=== PATIENT | male | born 1940 | race Caucasian/White ===

== ENCOUNTER 2016-10-12 14:20 | Observation (INO) | payer MEDICARE, OTHER ==
[2016-10-12] MEDS ORDERED: ASPIRIN 81 MG TABLET, CHEWABLE PO ONE (14:23)
[2016-10-12 15:07] LABS: ABSOLUTE EOSINOPHILS # (AUTO) 0.4 10^3/uL (0.0-0.6); ABSOLUTE LYMPHOCYTES (AUTO) 1.1 10^3/uL (0.5-4.7); ABSOLUTE MONOCYTES (AUTO) 0.6 10^3/uL (0.1-1.4); ABSOLUTE NEUT (AUTO) 4.3 10^3/uL (1.7-8.2); BASOPHILS % (AUTO) 0.7 % (0-2); EOSINOPHILS % (AUTO) 5.9 % (0-6); HEMATOCRIT 40.7 % (37.9-51.0); HEMOGLOBIN 13.6 g/dL (13.5-17.0); HGB HCT DIFFERENCE 0.1; LYMPHOCYTES % (AUTO) 16.8 % (13-45); MEAN CORPUSCULAR HEMOGLOBIN 31.2 pg (27.0-33.4); MEAN CORPUSCULAR HGB CONC 33.5 g/dL (32.0-36.0); MEAN CORPUSCULAR VOLUME 93 fl (80-97); MONOCYTES % (AUTO) 10.1 % (3-13); RED BLOOD COUNT 4.37 10^6/uL (4.35-5.55); RED CELL DISTRIBUTION WIDTH 13.5 % (11.5-14.0); SEGMENTED NEUTROPHILS % (AUTO) 66.5 % (42-78); WHITE BLOOD COUNT 6.4 10^3/uL (4.0-10.5)
--- NOTE | 2016-10-12 15:12 | ER Document Report ---
ED Cardiac - General Chief Complaint: Chest Pain Stated Complaint: BREATHING CONCERNS Mode of Arrival: Medic Information source: Patient, Emergency Med Personnel TRAVEL OUTSIDE OF THE [place] IN LAST 30 DAYS: No - HPI Patient complains to provider of: Chest pain Use of: denies: Alcohol, Amphetamines, Bath salts, Caffeine, Cocaine, Decongestants Was the onset of pain: Sudden When did pain begin: 1030 Is the pain a: New problem Chest pain location: Other - R. PECTORAL Quality of pain: Sharp, Tightness Chest pain radiation location: None Severity now: Mild Severity at worst: Moderate Chest pain precipitating factors: At Rest Cardiac risk factors: Hypertension, Hx CHF, Hx [place] Positive cardiac history: Yes Associated symptoms: Diaphoresis, Shortness of breath. denies: Nausea/vomiting Exacerbated by: Activity Relieved by: NTG - PARTIAL RELIEF Similar symptoms previously: Yes Recently seen / treated by doctor: No - Related Data Allergies/Adverse Reactions: Fish Containing Products [Fish Product Derivatives] Allergy (Severe, Verified 08:48) Hives Home Medications: Current Home Medications Cyanocobalamin/FA/Pyridoxine [Folbic Tablet] 1 each PO DAILY 10/12/16 [History] Docusate Sodium [Colace 100 mg Capsule] 100 mg PO DAILY 10/12/16 [History] Esomeprazole Magnesium [Nexium] 40 mg PO DAILY 10/12/16 [History] Atorvastatin Calcium [Lipitor 20 mg Tablet] 20 mg PO DAILY 10/13/16 [History] Furosemide [Lasix 20 mg Tablet] 20 mg PO DAILY 10/13/16 [History] Levothyroxine Sodium [Synthroid] 150 mcg PO DAILY 10/13/16 [History] Past Medical History - General Information source: Patient, Relative - Social History Smoking Status: Former Smoker Cigarette use (# per day): No Chew tobacco use (# tins/day): No Smoking Education Provided: No Frequency of alcohol use: None Drug Abuse: None Lives with: Spouse/Significant other Family History: Reviewed & Not Pertinent Patient has suicidal ideation: No Patient has homicidal ideation: No - Past Medical History Cardiac Medical History: Reports: Hx Coronary Artery Disease, Hx Heart Attack - x4, [address], Hx Hypercholesterolemia, Hx Hypertension - on meds, Hx Pulmonary Embolism - 2005 Pulmonary Medical History: Reports: Hx Bronchitis - hx of, Hx Pneumonia - hx of - 3 years ago Denies: Hx Asthma, Hx COPD Neurological Medical History: Denies: Hx Cerebrovascular Accident, Hx Seizures Endocrine Medical History: Reports: Hx Hyperthyroidism. Denies: Hx Hypothyroidism Renal/ Medical History: Denies: Hx Benign Prostatic Hyperplasia, Hx End Stage Renal Disease, Hx Kidney Stones, Hx Peritoneal Dialysis GI Medical History: Denies: Hx Crohn's Disease, Hx Gastroesophageal Reflux Disease, Hx Hiatal Hernia, Hx Irritable Bowel, Hx Liver Failure, Hx Ulcer Musculoskeltal Medical History: Reports Hx Arthritis - hx 0f, Denies Hx Fibromyalgia, Denies Hx Multiple Sclerosis, Denies Hx Muscular Dystrophy Psychiatric Medical History: Denies: Hx Dementia, Hx Depression Traumatic Medical History: Denies: Hx Fractures Past Surgical History: Reports: Hx Cardiac Catheterization, Hx Cardiac Surgery - Angioplasty x4, Hx Cholecystectomy - 2010, Hx Coronary Artery Bypass Graft - x2, Hx Coronary Stent - x5, Hx Inguinal Hernia - x2, Hx Orthopedic Surgery - ankle, multiple, Hx Thyroid Surgery - Thyroidectomy - Immunizations Hx Diphtheria, Pertussis, Tetanus Vaccination: No Hx Pneumococcal Vaccination: 02/12/07 Review of Systems - Review of Systems Constitutional: Diaphoresis EENT: No symptoms reported Cardiovascular: See HPI, Dyspnea Respiratory: See HPI, Short of breath Gastrointestinal: No symptoms reported Genitourinary: No symptoms reported Musculoskeletal: No symptoms reported Skin: No symptoms reported Neurological/Psychological: No symptoms reported Physical Exam - Vital signs Vitals: Pulse Ox 95 10/12/16 14:24 Interpretation: Normal. No: Tachycardic, Tachypneic - General General appearance: Appears well, Alert In distress: None - HEENT Head: Normocephalic Eyes: Normal Conjunctiva: Normal Ears: Normal Nasal: Normal Mouth/Lips: Normal Mucous membranes: Normal - Respiratory Respiratory status: No respiratory distress Chest status: Nontender, Other - WELL-HEALED STERNOTOMY Breath sounds: Normal - Cardiovascular Rhythm: Regular Heart sounds: Normal auscultation Murmur: No - Abdominal Inspection: Normal Distension: No distension Bowel sounds: Normal - Back Back: Normal - Extremities General upper extremity: Normal inspection General lower extremity: Edema - 1+, BILAT.. No: Normal inspection - Neurological Neuro grossly intact: Yes Cognition: Normal Orientation: AAOx4 - Psychological Associated symptoms: Normal affect, Normal mood - Skin Skin Temperature: Warm Skin Moisture: Dry Skin Color: Normal Skin Turgor: Elastic Course - Vital Signs Vital signs: Temp Pulse Resp BP Pulse Ox 97.7 F 64 16 118/60 96 10/13/16 11:45 10/13/16 11:45 10/13/16 11:45 10/13/16 11:45 10/13/16 11:45 - Laboratory Result Diagrams: 10/12/16 14:36 10/12/16 14:36 Laboratory results interpreted by me: 10/12/16 10/12/16 10/12/16 14:36 14:36 14:36 Plt Count 139 L BUN 23 H Creatinine 1.64 H Est GFR ( Amer) 49 L Est GFR (Non-Af Amer) 41 L Glucose 116 H Creatine Kinase 52 L NT-Pro-B Natriuret Pep 1320 H - Diagnostic Test Radiology reviewed: Image reviewed, Reports reviewed - EKG Interpretation by Me EKG shows normal: Sinus rhythm, Intervals. abnormal: QRS Complexes, ST-T Waves Rate: Normal Rhythm: NSR [place]/QRS: RBBB, LPHB/LPFB - Consults DR. DIAZ Time consulted: 17:52 Reason for consultation: 10/12/16 17:58 AGREES TO SEE & ADMIT Consulted provider: will come to ER Discharge - Discharge Clinical Impression: Chest pain Qualifiers: Chest pain type: unspecified Qualified Code(s): R07.9 - Chest pain, unspecified CAD (coronary artery disease) Qualifiers: Coronary Disease-Associated Artery/Lesion type: unspecified vessel or lesion type [place] vs. transplanted heart: [place] heart Associated angina: angina presence unspecified Qualified Code(s): I25.10 - Atherosclerotic heart disease of [place] coronary artery without angina pectoris Condition: Good Disposition: HOME WITH HOME HEALTH SERVICES
[2016-10-12 15:24] LABS: ALANINE AMINOTRANSFERASE 24 U/L (21-72); ALBUMIN 3.8 g/dL (3.5-5.0); ALKALINE PHOSPHATASE 44 U/L (38-126); ANION GAP 8 (5-19); ASPARTATE AMINO TRANSFERASE 26 U/L (17-59); BILIRUBIN,TOTAL 0.9 mg/dL (0.2-1.3); BLOOD UREA NITROGEN 23 mg/dL (7-20); CALCIUM 9.2 mg/dL (8.4-10.2); CARBON DIOXIDE 30 mmol/L (22-30); CHLORIDE 101 mmol/L (98-107); CREATINE KINASE 52 U/L (55-170); CREATININE RESULT 1.64 mg/dL (0.52-1.25); GLUCOSE 116 mg/dL (75-110); POTASSIUM 4.1 mmol/L (3.6-5.0); TOTAL PROTEIN 6.4 g/dL (6.3-8.2)
[2016-10-12 15:26] LABS: CREATINE KINASE MB 0.69 ng/mL (<4.55); TROPONIN I 0.015 ng/mL
[2016-10-12] MEDS ORDERED: NORMAL SALINE 1000 ML 200 ML IV ONE (16:23)
[2016-10-12] MEDS ORDERED: MORPHINE SULFATE 10 MG/ML INJ IV ONE (17:53)
[2016-10-12] MEDS ORDERED: ACETAMINOPHEN 325 MG TABLET PO PRN (18:30)
[2016-10-12] MEDS ORDERED: GLUCAGON,HUMAN RECOMB 1 MG INJ IM PRN (18:44)
[2016-10-12] MEDS ORDERED: INSULIN REG, HUMAN 100 UNIT/ML 3 ML VIAL (PYX) SUBCUT PRN (18:44)
[2016-10-12] MEDS ORDERED: DEXTROSE 40% GEL 15 GM TUBE PO PRN ×2 (18:44)
[2016-10-12] MEDS ORDERED: DEXTROSE 50%-WATER 25 GM/50 ML DISP.SYRIN IV PRN ×2 (18:44)
--- NOTE | 2016-10-12 19:00 | PDOC H&P ---
History of Present Illness Admission Date/PCP: KAIDEN CASANOVA MD Patient complains of: Chest pain History of Present Illness: MOLLY GRAY is a 76 year old male, with history of coronary artery disease status post coronary artery bypass grafting has been having on and off right- sided chest pain for very long time. No recent stress test done performed. Patient reports that she is buying followed by Dr. Colby as outpatient. Pain is associated with some nausea but no vomiting. There is some shortness of breath and mild sweating. No palpitation or dizziness or lightheadedness. Patient reports that she had heart attacks in the past but never had left-sided chest pain. She ended up having coronary artery bypass grafting. In the emergency room there is a concern of decreased vascularity on the right side noted on chest x-ray. VQ scan was performed by low probability for PE. The patient was then referred for observation. Past Medical History Cardiac Medical History: Reports: Coronary Artery Disease, Myocardial Infarction - x4, [address], Hyperlipidema, Hypertension - on meds, Pulmonary Embolism - 2005 Pulmonary Medical History: Reports: Bronchitis - hx of, Pneumonia - hx of - 3 years ago Denies: Asthma, Chronic Obstructive Pulmonary Disease (COPD) Neurological Medical History: Denies: Seizures Endocrine Medical History: Reports: Hyperthyroidism Denies: Hypothyroidism Renal/ Medical History: Denies: End Stage Renal Disease GI Medical History: Denies: Crohn's Disease, Gastroesophageal Reflux Disease, Hiatal Hernia Musculoskeltal Medical History: Reports: Arthritis - hx 0f Denies: Fibromyalgia Psychiatric Medical History: Denies: Dementia, Depression Hematology: Denies: Anemia Past Surgical History Past Surgical History: Reports: Cardiac Catheterization, Cholecystectomy - 2010 , Coronary Artery Bypass Graft - x2, Coronary Stent - x5, Orthopedic Surgery - ankle, multiple Social History Information Source: Patient Lives with: Spouse/Significant other Smoking Status: Former Smoker Frequency of Alcohol Use: None Hx Recreational Drug Use: No Drugs: None Hx Prescription Drug Abuse: No Family History Family History: CAD, DM Parental Family History Reviewed: Yes Children Family History Reviewed: Yes Sibling(s) Family History Reviewed.: Yes Medication/Allergy Home Medications: Aspirin [Aspirin 81 mg Chewable Tablet] 81 mg PO DAILY 07/10/15 Atorvastatin Calcium [Lipitor 40 mg Tablet] 20 mg PO QHS 07/10/15 Clopidogrel Bisulfate [Plavix 75 mg Tablet] 75 mg PO DAILY 07/10/15 Dutasteride [Avodart Lf 0.5 mg Capsule] 0.5 mg PO DAILY 07/10/15 Gabapentin 300 mg PO QHS 07/10/15 Isosorbide Mononitrate [Imdur 30 mg Tablet.er] 60 mg PO DAILY 07/10/15 Levothyroxine Sodium [Synthroid 0.1 mg Tablet] 0.112 mg PO DAILY 07/10/15 Magnesium Oxide [Magnesium] 400 mg PO BID 07/10/15 Metoprolol Tartrate [Lopressor 25 mg Tablet] 25 mg PO Q12 07/10/15 Ranolazine [Ranexa] 1,000 mg PO BID 07/10/15 Trazodone HCl [Desyrel 50 mg Tablet] 50 mg PO QHS 07/10/15 Alfuzosin HCl [Alfuzosin HCl ER] 10 mg PO DAILY 08/18/16 Cyanocobalamin/FA/Pyridoxine [Folbic Tablet] 1 each PO DAILY 10/12/16 Docusate Sodium [Colace 100 mg Capsule] 100 mg PO DAILY 10/12/16 Esomeprazole Magnesium [Nexium] 40 mg PO DAILY 10/12/16 Furosemide [Lasix 20 mg Tablet] 20 mg PO DAILY 10/12/16 Allergies/Adverse Reactions: Fish Containing Products [Fish Product Derivatives] Allergy (Severe, Verified 08:48) Hives Review of Systems Constitutional: ABSENT: chills, fever(s), headache(s), weight gain, weight loss Eyes: ABSENT: visual disturbances Ears: ABSENT: hearing changes Nose, Mouth, and Throat: ABSENT: mouth pain, sore throat Cardiovascular: PRESENT: chest pain, dyspnea on exertion, edema - Both lower extremities for the past 2-3 months.. ABSENT: orthropnea, palpitations Respiratory: ABSENT: cough, hemoptysis, sputum Gastrointestinal: ABSENT: abdominal pain, constipation, diarrhea, hematemesis, hematochezia, melena, nausea, vomiting Genitourinary: ABSENT: dysuria, hematuria Musculoskeletal: ABSENT: joint swelling Integumentary: ABSENT: pruritus, rash, wounds Neurological: ABSENT: abnormal gait, abnormal speech, confusion, dizziness, focal weakness, syncope Psychiatric: ABSENT: anxiety, depression, homidical ideation, suicidal ideation Endocrine: ABSENT: cold intolerance, heat intolerance, polydipsia, polyuria Hematologic/Lymphatic: ABSENT: easy bleeding, easy bruising Physical Exam Vital Signs: Temp Pulse Resp BP Pulse Ox 98.4 F 60 12 120/55 L 96 10/12/16 18:22 10/12/16 14:47 10/12/16 18:06 10/12/16 16:01 10/12/16 18:06 General appearance: PRESENT: no acute distress, cooperative, well-developed, well-nourished Head exam: PRESENT: atraumatic, normocephalic Eye exam: PRESENT: conjunctiva pink, EOMI, PERRLA - Sluggish, arcus senilis. ABSENT: scleral icterus Ear exam: PRESENT: normal external ear exam Mouth exam: PRESENT: moist, neck supple, tongue midline Neck exam: ABSENT: carotid bruit, JVD, lymphadenopathy, thyromegaly Respiratory exam: PRESENT: clear to auscultation [place]. ABSENT: rales, rhonchi, wheezes Cardiovascular exam: PRESENT: RRR, systolic murmur - Left sternal border. ABSENT: diastolic murmur, rubs Pulses: PRESENT: normal dorsalis pedis pul Vascular exam: PRESENT: normal capillary refill GI/Abdominal exam: PRESENT: normal bowel sounds, soft. ABSENT: distended, guarding, mass, organolmegaly, rebound, tenderness Rectal exam: PRESENT: deferred Extremities exam: PRESENT: full ROM, +1 edema - Bilateral. ABSENT: calf tenderness, clubbing Musculoskeletal exam: PRESENT: tenderness - Right rib cage on the third, fourth , and fifth ribs anterior axillary line Neurological exam: PRESENT: alert, awake, oriented to person, oriented to place , oriented to time, oriented to situation Psychiatric exam: PRESENT: appropriate affect, normal mood. ABSENT: homicidal ideation, suicidal ideation Skin exam: PRESENT: dry, warm. ABSENT: cyanosis Results Laboratory Results: 10/12/16 14:36 10/12/16 14:36 10/12/16 10/12/16 14:36 14:36 WBC 6.4 RBC 4.37 Hgb 13.6 Hct 40.7 MCV 93 MCH 31.2 MCHC 33.5 RDW 13.5 Plt Count 139 L Seg Neutrophils % 66.5 Lymphocytes % 16.8 Monocytes % 10.1 Eosinophils % 5.9 Basophils % 0.7 Absolute Neutrophils 4.3 Absolute Lymphocytes 1.1 Absolute Monocytes 0.6 Absolute Eosinophils 0.4 Absolute Basophils 0.0 Sodium 139.0 Potassium 4.1 Chloride 101 Carbon Dioxide 30 Anion Gap 8 BUN 23 H Creatinine 1.64 H Est GFR ( Amer) 49 L Est GFR (Non-Af Amer) 41 L Glucose 116 H Calcium 9.2 Total Bilirubin 0.9 AST 26 ALT 24 Alkaline Phosphatase 44 Total Protein 6.4 Albumin 3.8 10/12/16 10/12/16 14:36 14:36 Creatine Kinase 52 L CK-MB (CK-2) 0.69 Troponin I 0.015 NT-Pro-B Natriuret Pep 1320 H Impressions: Chest X-Ray 10/12/16 14:24 IMPRESSION: Diffuse decreased pulmonary vascularity on the right side. This could be seen in right-sided pulmonary embolus. Lung Scan-VQ NM 10/12/16 16:21 IMPRESSION: NORMAL VENTILATION-PERFUSION LUNG SCAN. NEGATIVE FOR PULMONARY EMBOLI. NORMAL LUNG PERFUSION ON THE RIGHT Assessment & Plan - Diagnosis (1) Chest pain Qualifiers: Chest pain type: unspecified Qualified Code(s): R07.9 - Chest pain, unspecified Is this a current diagnosis for this admission?: Yes (2) CAD (coronary artery disease) Qualifiers: Coronary Disease-Associated Artery/Lesion type: unspecified vessel or lesion type [place] vs. transplanted heart: [place] heart Associated angina: angina presence unspecified Qualified Code(s): I25.10 - Atherosclerotic heart disease of [place] coronary artery without angina pectoris Is this a current diagnosis for this admission?: Yes (3) Hypertension Qualifiers: Hypertension type: essential hypertension Qualified Code(s): I10 - Essential (primary) hypertension Is this a current diagnosis for this admission?: Yes (4) Hyperlipidemia Qualifiers: Hyperlipidemia type: unspecified Qualified Code(s): E78.5 - Hyperlipidemia, unspecified Is this a current diagnosis for this admission?: Yes (5) Hypothyroid Qualifiers: Hypothyroidism type: acquired Qualified Code(s): E03.9 - Hypothyroidism, unspecified Is this a current diagnosis for this admission?: Yes (6) GERD (gastroesophageal reflux disease) Qualifiers: Esophagitis presence: without esophagitis Qualified Code(s): K21.9 - Gastro-esophageal reflux disease without esophagitis Is this a current diagnosis for this admission?: Yes (7) Diabetes mellitus Qualifiers: Diabetes mellitus type: type 2 Diabetes mellitus complication status: with unspecified complications Diabetes mellitus retirement insulin use: without retirement use Qualified Code(s): E11.8 - Type 2 diabetes mellitus with unspecified complications Is this a current diagnosis for this admission?: Yes - Time Time Spent: 30 to 50 Minutes Within: within 24 hours - Plan Summary Plan Summary: Patient will be admitted to observation. Cardiac enzymes will be obtained 3. Pain is right-sided and is reproducible. 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 I will continue the patient's cardiac medications including Ranexa and nitroglycerin. We will continue on antiplatelet therapy. DVT prophylaxis with Lovenox will be placed. He complains of increasing lower extremity edema, I will increase his diuretics. Supplemental oxygen will be given. Further testing depends on the admission evaluation as outlined above.
[2016-10-12] MEDS ORDERED: LEVOTHYROXINE SODIUM 0.112 MG TABLET PO SCH (20:00)
[2016-10-12] MEDS ORDERED: RANOLAZINE 500 MG TAB.SR.12H PO SCH (20:00)
[2016-10-12] MEDS ORDERED: GABAPENTIN 300 MG CAPSULE PO SCH (22:00)
[2016-10-12] MEDS ORDERED: ATORVASTATIN CALCIUM 40 MG TABLET PO SCH (22:00)
[2016-10-12] MEDS ORDERED: TRAZODONE HCL 50 MG TABLET PO SCH (22:00)
[2016-10-12] MEDS: METOPROLOL TARTRATE 25 MG TABLET PO SCH (22:13)
--- NOTE | 2016-10-12 23:03 | EKG REPORT ---
SEVERITY:- ABNORMAL ECG - SINUS RHYTHM RBBB AND LPFB : Confirmed by: Josephine Gilliam MD 12-Oct-2016 23:02:34
[2016-10-13] MEDS ORDERED: RANOLAZINE 500 MG TAB.SR.12H PO ONE (00:03)
[2016-10-13] MEDS ORDERED: INFLUENZA ADLT QUAD (36MOS+) 2016-17 VAC 0.5 ML SYR IM PRN (01:35)
[2016-10-13] MEDS: OXYCODONE HCL IR 5 MG TABLET PO PRN ×2 (02:29→08:55)
[2016-10-13] MEDS ORDERED: LANSOPRAZOLE 30 MG TAB.RAP.DR PO SCH (06:00)
[2016-10-13] MEDS ORDERED: ENOXAPARIN SODIUM INJ 40 MG/0.4 ML DISP.SYRIN SUBCUT SCH (08:00)
--- NOTE | 2016-10-13 08:30 | EKG REPORT ---
SEVERITY:- ABNORMAL ECG - SINUS RHYTHM FIRST DEGREE AV BLOCK RBBB AND LPFB : Confirmed by: Km Barnes 13-Oct-2016 08:29:42
[2016-10-13] MEDS ORDERED: ASPIRIN 81 MG TABLET, CHEWABLE PO SCH (10:00)
[2016-10-13] MEDS ORDERED: CLOPIDOGREL BISULFATE 75 MG TABLET PO SCH (10:00)
[2016-10-13] MEDS ORDERED: (PENDING PHARMACY ID) (Alfuzosin Hcl [Alfuzosin Hcl Er] 10 MG) PO SCH (10:00)
[2016-10-13] MEDS ORDERED: DUTASTERIDE 0.5 MG CAPSULE PO SCH (10:00)
[2016-10-13] MEDS ORDERED: FUROSEMIDE 20 MG TABLET PO SCH (10:00)
[2016-10-13] MEDS ORDERED: ISOSORBIDE MONONITRATE 30 MG TAB.ER.24H PO SCH (10:00)
[2016-10-13] MEDS ORDERED: DOCUSATE SODIUM 100 MG CAPSULE PO SCH (10:00)
[2016-10-13] MEDS: METOPROLOL TARTRATE 25 MG TABLET PO SCH (10:24)
--- NOTE | 2016-10-13 11:04 | PDOC DISCHARGE SUMMARY ---
General - Admit/Disc Date/PCP Admission Date/Primary Care Provider: 10/12/16 18:30 KAIDEN CASANOVA MD Discharge Date: 10/13/16 - Discharge Diagnosis (1) Chest pain Is this a current diagnosis for this admission?: Yes (2) CAD (coronary artery disease) Is this a current diagnosis for this admission?: Yes (3) Hypertension Is this a current diagnosis for this admission?: Yes (4) Hyperlipidemia Is this a current diagnosis for this admission?: Yes (5) Hypothyroid Is this a current diagnosis for this admission?: Yes (6) GERD (gastroesophageal reflux disease) Is this a current diagnosis for this admission?: Yes (7) Diabetes mellitus Is this a current diagnosis for this admission?: Yes - Additional Information Resuscitation Status: Full Code Discharge Diet: Cardiac - low-fat low-salt, Diabetic - no concentrated sweets Discharge Activity: Activity As Tolerated, Balance Activity w/Rest, Slowly Increase Activity Home Medications: Aspirin [Aspirin 81 mg Chewable Tablet] 81 mg PO DAILY 07/10/15 Atorvastatin Calcium [Lipitor 40 mg Tablet] 20 mg PO QHS 07/10/15 Clopidogrel Bisulfate [Plavix 75 mg Tablet] 75 mg PO DAILY 07/10/15 Dutasteride [Avodart Lf 0.5 mg Capsule] 0.5 mg PO DAILY 07/10/15 Gabapentin 300 mg PO QHS 07/10/15 Isosorbide Mononitrate [Imdur 30 mg Tablet.er] 60 mg PO DAILY 07/10/15 Levothyroxine Sodium [Synthroid 0.1 mg Tablet] 0.112 mg PO DAILY 07/10/15 Magnesium Oxide [Magnesium] 400 mg PO BID 07/10/15 Metoprolol Tartrate [Lopressor 25 mg Tablet] 25 mg PO Q12 07/10/15 Ranolazine [Ranexa] 1,000 mg PO BID 07/10/15 Trazodone HCl [Desyrel 50 mg Tablet] 50 mg PO QHS 07/10/15 Alfuzosin HCl [Alfuzosin HCl ER] 10 mg PO DAILY 08/18/16 Cyanocobalamin/FA/Pyridoxine [Folbic Tablet] 1 each PO DAILY 10/12/16 Docusate Sodium [Colace 100 mg Capsule] 100 mg PO DAILY 10/12/16 Esomeprazole Magnesium [Nexium] 40 mg PO DAILY 10/12/16 Furosemide [Lasix 20 mg Tablet] 40 mg PO DAILY #0 10/13/16 History of Present Illness Patient complains of: Chest pain History of Present Illness: MOLLY GRAY is a 76 year old male, with history of coronary artery disease status post coronary artery bypass grafting has been having on and off right- sided chest pain for very long time. No recent stress test done performed. Patient reports that she is buying followed by Dr. Colby as outpatient. Pain is associated with some nausea but no vomiting. There is some shortness of breath and mild sweating. No palpitation or dizziness or lightheadedness. Patient reports that she had heart attacks in the past but never had left-sided chest pain. She ended up having coronary artery bypass grafting. In the emergency room there is a concern of decreased vascularity on the right side noted on chest x-ray. VQ scan was performed by low probability for PE. The patient was then referred for observation. Hospital Course Hospital Course: The patient was admitted to observation. The patient was continued on his previous medications including Imdur, Ranexa, aspirin, and Plavix. Supplemental oxygen was given. DVT prophylaxis with Lovenox was placed. Serial cardiac enzymes were obtained and were negative. Eventually the patient' s chest pain resolved. It is right-sided and reproducible. 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 In terms of his lower extremity edema patient was recently started on Lasix and has no significant improvement therefore the dose was increased to 40 mg instead of 20 mg daily and the swelling improved. The rest of the hospital stays unremarkable. He has a VQ scan that shows low probability for pulmonary embolism. Chest x-ray did not reveal any heart failure or infiltrate. Physical Exam Vital Signs: Temp Pulse Resp BP Pulse Ox 97.3 F 62 14 118/60 93 10/13/16 07:27 10/13/16 07:27 10/13/16 07:27 10/13/16 07:27 10/13/16 07:27 Intake & Output 10/12/16 10/13/16 10/14/16 06:59 06:59 06:59 Intake Total 326 Output Total 200 Balance 126 Weight 99 kg General appearance: PRESENT: no acute distress, cooperative Head exam: PRESENT: normocephalic Eye exam: PRESENT: EOMI Mouth exam: PRESENT: moist, neck supple Neck exam: ABSENT: JVD Respiratory exam: PRESENT: clear to auscultation [place]. ABSENT: rhonchi, wheezes Cardiovascular exam: PRESENT: RRR. ABSENT: gallop GI/Abdominal exam: PRESENT: normal bowel sounds, soft. ABSENT: distended Extremities exam: PRESENT: +1 edema Neurological exam: PRESENT: alert, awake, oriented to situation Skin exam: ABSENT: cyanosis Results Laboratory Results: 10/13/16 07:50 TSH 2.07 10/13/16 10/13/16 10/13/16 00:43 00:43 07:50 Creatine Kinase 48 L 47 L Troponin I 0.015 10/13/16 07:50 Creatine Kinase Troponin I 0.014 Impressions: Chest X-Ray 10/12/16 14:24 IMPRESSION: Diffuse decreased pulmonary vascularity on the right side. This could be seen in right-sided pulmonary embolus. Lung Scan-VQ NM 10/12/16 16:21 IMPRESSION: NORMAL VENTILATION-PERFUSION LUNG SCAN. NEGATIVE FOR PULMONARY EMBOLI. NORMAL LUNG PERFUSION ON THE RIGHT Qualifiers [place] BEING DISCHARGED WITH ANY OF THE FOLLOWING DIAGNOSIS?: No Plan Discharge Plan: Follow-up with primary care physician in one week. Follow-up with Dr. Colby in one week. Time Spent: Less than 30 Minutes
[2016-10-13 12:08] VITALS: BP 146/61
== END 2016-10-13 13:38 | disposition home health service (06) ==
LOC: ER 14:20 → EH 18:30 → INTOOBSV 18:30 → 4N 22:59
PROVIDERS: ADMIT Family Medicine; ATTEND Family Medicine
DX: I25.10 Atherosclerotic heart disease of native coronary artery without angina pectoris (principal); R07.9 Chest pain, unspecified; E78.00 Pure hypercholesterolemia, unspecified; I10 Essential (primary) hypertension; E11.9 Type 2 diabetes mellitus without complications; M19.90 Unspecified osteoarthritis, unspecified site; E89.0 Postprocedural hypothyroidism; Z87.891 Personal history of nicotine dependence; I25.2 Old myocardial infarction; Z98.61 Coronary angioplasty status; Z86.711 Personal history of pulmonary embolism; Z95.1 Presence of aortocoronary bypass graft; Z79.899 Other long term (current) drug therapy; Z23 Encounter for immunization; Z79.82 Long term (current) use of aspirin; Z79.02 Long term (current) use of antithrombotics/antiplatelets
CPT/HCPCS: 93005 ×2; 99285; 96374; 36415 ×2; 82553; 82962 ×2; 82550 ×2; 84443; 85025; 80053; 84484 ×2; 83880; 71010; 78582; 90686; 93010 ×2; 90471; G0378 ×3; A9540; A9567; A9270 ×14; J2270; J1650; J3490 ×2; J7030; Q9969

== ENCOUNTER → 2016-12-15 | Outpatient (CLI) | payer MEDICARE, OTHER ==
[2016-12-15 11:34] LABS: HEMATOCRIT 37.9 % (37.9-51.0); HEMOGLOBIN 13.6 g/dL (13.5-17.0); HGB HCT DIFFERENCE 2.9; MEAN CORPUSCULAR HEMOGLOBIN 32.3 pg (27.0-33.4); MEAN CORPUSCULAR VOLUME 90 fl (80-97); RED BLOOD COUNT 4.23 10^6/uL (4.35-5.55); WHITE BLOOD COUNT 7.4 10^3/uL (4.0-10.5)
[2016-12-15 11:37] LABS: APPEARANCE,URINE CLEAR; BILIRUBIN,URINE NEGATIVE (NEGATIVE); GLUCOSE, URINE NEGATIVE (NEGATIVE); KETONES,URINE NEGATIVE (NEGATIVE); LEUKOCYTE ESTERASE,URINE NEGATIVE (NEGATIVE); NITRITE,URINE NEGATIVE (NEGATIVE); PROTEIN,URINE 100 mg/dL (NEGATIVE); URINE SPECIFIC GRAVITY 1.008; UROBILINOGEN,URINE NEGATIVE mg/dL (<2.0)
[2016-12-15 11:56] LABS: ALANINE AMINOTRANSFERASE 29 U/L (21-72); ALBUMIN 3.7 g/dL (3.5-5.0); ALKALINE PHOSPHATASE 58 U/L (38-126); ANION GAP 12 (5-19); ASPARTATE AMINO TRANSFERASE 24 U/L (17-59); BILIRUBIN,DIRECT 0.2 mg/dL (0.0-0.4); BILIRUBIN,TOTAL 0.9 mg/dL (0.2-1.3); BLOOD UREA NITROGEN 21 mg/dL (7-20); CALCIUM 9.5 mg/dL (8.4-10.2); CARBON DIOXIDE 25 mmol/L (22-30); CHLORIDE 104 mmol/L (98-107); CREATININE RESULT 1.44 mg/dL (0.52-1.25); GLUCOSE 102 mg/dL (75-110); MAGNESIUM 2.2 mg/dL (1.6-2.3); POTASSIUM 4.2 mmol/L (3.6-5.0); SODIUM 140.6 mmol/L (137-145); TOTAL PROTEIN 6.3 g/dL (6.3-8.2)
== END ==
LOC: OD 10:09
PROVIDERS: ATTEND Internal Medicine Nephrology
DX: I12.9 Hypertensive chronic kidney disease with stage 1 through stage 4 chronic kidney disease, or unspecified chronic kidney disease (principal); N18.3 Chronic kidney disease, stage 3 (moderate); I50.9 Heart failure, unspecified
CPT/HCPCS: 36415; 80053; 81001; 83735; 84443; 85027

== ENCOUNTER 2017-02-11 12:38 | Observation (INO) | payer MEDICARE, OTHER ==
[2017-02-11 13:19] LABS: ABSOLUTE BASOPHILS # (AUTO) 0.1 10^3/uL (0.0-0.2); ABSOLUTE EOSINOPHILS # (AUTO) 0.4 10^3/uL (0.0-0.6); ABSOLUTE LYMPHOCYTES (AUTO) 1.3 10^3/uL (0.5-4.7); ABSOLUTE MONOCYTES (AUTO) 0.6 10^3/uL (0.1-1.4); ABSOLUTE NEUT (AUTO) 4.3 10^3/uL (1.7-8.2); BASOPHILS % (AUTO) 1.1 % (0-2); EOSINOPHILS % (AUTO) 6.3 % (0-6); HEMATOCRIT 38.4 % (37.9-51.0); HEMOGLOBIN 13.3 g/dL (13.5-17.0); HGB HCT DIFFERENCE 1.5; LYMPHOCYTES % (AUTO) 19.8 % (13-45); MEAN CORPUSCULAR HEMOGLOBIN 31.8 pg (27.0-33.4); MEAN CORPUSCULAR HGB CONC 34.6 g/dL (32.0-36.0); MEAN CORPUSCULAR VOLUME 92 fl (80-97); MONOCYTES % (AUTO) 8.5 % (3-13); RED BLOOD COUNT 4.17 10^6/uL (4.35-5.55); RED CELL DISTRIBUTION WIDTH 12.8 % (11.5-14.0); SEGMENTED NEUTROPHILS % (AUTO) 64.3 % (42-78); WHITE BLOOD COUNT 6.7 10^3/uL (4.0-10.5)
--- NOTE | 2017-02-11 13:58 | RADIOLOGY REPORT (SQ) ---
EXAM DESCRIPTION: CHEST SINGLE VIEW COMPLETED DATE/TIME: 02/11/2017 1:48 pm REASON FOR STUDY: bed 2 cp COMPARISON: 10/12/2016. EXAM PARAMETERS: NUMBER OF VIEWS: One view. TECHNIQUE: Single frontal radiographic view of the chest acquired. RADIATION DOSE: NA LIMITATIONS: None. FINDINGS: LUNGS AND PLEURA: No opacities, masses or pneumothorax. No pleural effusion. MEDIASTINUM AND HILAR STRUCTURES: No masses. Contour normal. HEART AND VASCULAR STRUCTURES: Stable mild cardiomegaly. Normal vasculature. BONES: No acute findings. HARDWARE: Sternotomy wires, coronary bypass markers, and surgical clips. OTHER: No other significant finding. IMPRESSION: NO ACUTE RADIOGRAPHIC FINDING IN THE CHEST. TECHNICAL DOCUMENTATION: JOB ID: [id number]
--- NOTE | 2017-02-11 14:29 | ER Document Report ---
ED Cardiac - General Chief Complaint: Chest Pain Stated Complaint: CHEST PAIN Time Seen by Provider: 02/11/17 14:01 Notes: The patient is a 76-year-old male, past medical history CAD s/p five cardiac stents, four CABG's, HTN, Hypothyroidism, presents with 4 hours of right-sided chest pressure radiating to his right shoulder. He has never had this before. He took 324 mg aspirin and 5 sublingual nitros with relief of his chest pain. He is saying that the chest pain is returning while in the emergency room. Last stress test was last year and his last cardiac catheterization with 4 years ago. He was at rest when the pain started. He has chronic peripheral edema and said that his swelling has improved over the past few weeks. He denies increased leg swelling, calf pain, shortness of breath, back pain, nausea , vomiting, fevers or cough. TRAVEL OUTSIDE OF THE [place] IN LAST 30 DAYS: No - Related Data Allergies/Adverse Reactions: Fish Containing Products [Fish Product Derivatives] Allergy (Severe, Verified 13:30) Hives Home Medications: Current Home Medications Bumetanide 1 mg PO DAILY 02/11/17 [History] Past Medical History - General Information source: Patient - Social History Smoking Status: Never Smoker Chew tobacco use (# tins/day): No Frequency of alcohol use: None Drug Abuse: None Family History: Reviewed & Not Pertinent - Past Medical History Cardiac Medical History: Reports: Hx Coronary Artery Disease, Hx Heart Attack - x4, [address], Hx Hypercholesterolemia, Hx Hypertension - on meds, Hx Pulmonary Embolism - 2005 Pulmonary Medical History: Reports: Hx Bronchitis - hx of, Hx Pneumonia - hx of - 3 years ago Denies: Hx Asthma, Hx COPD Neurological Medical History: Denies: Hx Cerebrovascular Accident, Hx Seizures Endocrine Medical History: Reports: Hx Hyperthyroidism. Denies: Hx Hypothyroidism Renal/ Medical History: Denies: Hx Benign Prostatic Hyperplasia, Hx End Stage Renal Disease, Hx Kidney Stones, Hx Peritoneal Dialysis GI Medical History: Denies: Hx Crohn's Disease, Hx Gastroesophageal Reflux Disease, Hx Hiatal Hernia, Hx Irritable Bowel, Hx Liver Failure, Hx Ulcer Musculoskeltal Medical History: Reports Hx Arthritis - hx 0f, Denies Hx Fibromyalgia, Denies Hx Multiple Sclerosis, Denies Hx Muscular Dystrophy Psychiatric Medical History: Denies: Hx Dementia, Hx Depression Traumatic Medical History: Denies: Hx Fractures Past Surgical History: Reports: Hx Cardiac Catheterization, Hx Cardiac Surgery - Angioplasty x4, Hx Cholecystectomy - 2010, Hx Coronary Artery Bypass Graft - x2, Hx Coronary Stent - x5, Hx Inguinal Hernia - x2, Hx Orthopedic Surgery - ankle, multiple, Hx Thyroid Surgery - Thyroidectomy - Immunizations Hx Diphtheria, Pertussis, Tetanus Vaccination: No Hx Pneumococcal Vaccination: 02/12/07 Review of Systems - Review of Systems Notes: REVIEW OF SYSTEMS: CONSTITUTIONAL: -fevers, -chills EENT: -eye pain, -difficulty swallowing, -nasal congestion CARDIOVASCULAR: +chest pain, -syncope. RESPIRATORY: -cough, -SOB GASTROINTESTINAL: -abdominal pain, -nausea, -vomiting, -diarrhea GENITOURINARY: -dysuria, -hematuria MUSCULOSKELETAL: -back pain, -neck pain SKIN: -rash or skin lesions. HEMATOLOGIC: -easy bruising or bleeding. LYMPHATIC: -swollen, enlarged glands. NEUROLOGICAL: -altered mental status or loss of consciousness, -headache, - neurologic symptoms PSYCHIATRIC: -anxiety, -depression. ALL OTHER SYSTEMS REVIEWED AND NEGATIVE. Physical Exam - Vital signs Vitals: Pulse Ox 95 02/11/17 12:40 - Notes Notes: PHYSICAL EXAMINATION: GENERAL: Well-appearing, well-nourished and in no acute distress. HEAD: Atraumatic, normocephalic. EYES: Pupils equal round and reactive to light, extraocular movements intact, sclera anicteric, conjunctiva are normal. ENT: nares patent, oropharynx clear without exudates. Moist mucous membranes. NECK: Normal range of motion, supple without lymphadenopathy LUNGS: Breath sounds clear to auscultation bilaterally and equal. No wheezes rales or rhonchi. HEART: Regular rate and rhythm without murmurs ABDOMEN: Soft, nontender, normoactive bowel sounds. No guarding, no rebound. No masses appreciated. EXTREMITIES: Normal range of motion, no pitting or edema. No cyanosis. NEUROLOGICAL: Cranial nerves grossly intact. Normal speech, normal gait. Normal sensory and motor exams. PSYCH: Normal mood, normal affect. SKIN: Warm, Dry, normal turgor, no rashes or lesions noted. Course - Re-evaluation Re-evalutation: Pt has HEART score of 8. Chest pain free with nitro paste and he already took 324 mg ASA at home prior to arrival. Considered PE, but is not having any SOB and is not tachycardic. Symptoms also atypical for aortic dissection with intermittent symptoms and no back pain. Pt's PMD is Dr. Moss and his computerized table cutter is Dr. Colby. Will admit patient as Obs for further evaluation of his chest pain. 02/11/17 15:[address] Jovanny Rouse and he will admit to Tele Obs. - Vital Signs Vital signs: Temp Pulse Resp BP Pulse Ox 97.4 F 23 H 120/70 95 02/11/17 12:44 02/11/17 13:01 02/11/17 13:01 02/11/17 13:01 - Laboratory Result Diagrams: 02/11/17 13:00 02/11/17 14:22 Laboratory results interpreted by me: 02/11/17 02/11/17 13:00 14:22 RBC 4.17 L Hgb 13.3 L Eosinophils % 6.3 H Sodium 135.9 L Creatinine 1.31 H Est GFR (Non-Af Amer) 53 L Creatine Kinase 47 L Total Protein 5.7 L Albumin 3.1 L - Diagnostic Test Radiology reviewed: Image reviewed, Reports reviewed Radiology results interpreted by me: CXR: NAD - EKG Interpretation by Me Rate: Normal [place]/QRS: RBBB When compared to previous EKG there are: No significant change Additional EKG results interpreted by me: V1-V3 ST depressions, unchanged from 10/13/2016 EKG Discharge - Discharge Clinical Impression: Chest pain Qualifiers: Chest pain type: unspecified Qualified Code(s): R07.9 - Chest pain, unspecified Condition: Stable Disposition: ADMITTED OBSERVATION Admitting Provider: Taurus Rouse Unit Admitted: Telemetry
[2017-02-11] MEDS ORDERED: NITROGLYCERIN 2% OINTMENT 1 GM PACKET TP ONE (14:30)
[2017-02-11 15:04] LABS: ALANINE AMINOTRANSFERASE 30 U/L (21-72); ALBUMIN 3.1 g/dL (3.5-5.0); ALKALINE PHOSPHATASE 50 U/L (38-126); ANION GAP 5 (5-19); ASPARTATE AMINO TRANSFERASE 22 U/L (17-59); BILIRUBIN,DIRECT 0.2 mg/dL (0.0-0.4); BILIRUBIN,TOTAL 0.8 mg/dL (0.2-1.3); BLOOD UREA NITROGEN 17 mg/dL (7-20); CALCIUM 8.6 mg/dL (8.4-10.2); CARBON DIOXIDE 27 mmol/L (22-30); CHLORIDE 104 mmol/L (98-107); CREATINE KINASE 47 U/L (55-170); CREATININE RESULT 1.31 mg/dL (0.52-1.25); GLUCOSE 94 mg/dL (75-110); POTASSIUM 4.1 mmol/L (3.6-5.0); SODIUM 135.9 mmol/L (137-145); TOTAL PROTEIN 5.7 g/dL (6.3-8.2)
[2017-02-11 15:17] LABS: CREATINE KINASE MB 0.47 ng/mL (<4.55)
[2017-02-11 15:18] LABS: TROPONIN I < 0.012 ng/mL
[2017-02-11] MEDS ORDERED: MORPHINE SULFATE 10 MG/ML INJ IV PRN (16:18)
[2017-02-11] MEDS ORDERED: OXYCODONE-ACETAMINOPHEN 5-325 MG TABLET PO PRN (16:18)
[2017-02-11] MEDS ORDERED: ONDANSETRON HCL INJ/PF 4 MG/2 ML SDV IV PRN (16:18)
--- NOTE | 2017-02-11 16:49 | PDOC H&P ---
History of Present Illness Admission Date/PCP: 02/11/17 15:45 KAIDEN CASANOVA MD Patient complains of: right sided chest pain History of Present Illness: MOLLY GRAY is a 76 year old male presents to the ED from home with sudden onset of right sided dull aching chest pain, non radiating with asct'd dyspnea, diaphoresis, worsening dizziness and nausea all similar to the same symptoms he had with his first [place]. He reports increasing BLE edema with increase in his shoe size from 10 to 13's as a result and in spite of diuretics. He sees Dr. Colby, cardiology. He has had CABG x2 of 4v each with total of [address] ,unclear if in [place] or graft vessels. He has strong family hx of early IA in his Dad and other males of the extended family. he denies tobacco or ETOH use, takes statin for chol control and daily antiplt Tx. he also reports a prior hx of PE that presented similarly, took coumadin for a time but was stopped after his last CABG. He has underlying CKD at least stage 3 with baseline Scr 1.3-1.5. he presented 09/2016 with same symptoms, underwent admission to hospital with negative cardiac eval and underwent VQ scan that was low probability. he can't remember his last stress test date or results. last echo in computer is 01/2016 that shows preserved EF 50-55%, inferior wall hypokinesia, LORENZO, mod MR, trace AR, TR. eval in ED is negative so far, ecg shows no change from prior and first enzymes are negative. we were asked to admit for further eval and management given his high risk factors. Past Medical History Cardiac Medical History: Reports: Coronary Artery Disease, Myocardial Infarction - x4, [address], Hyperlipidema, Hypertension - on meds, Pulmonary Embolism - 2005 Pulmonary Medical History: Reports: Bronchitis - hx of, Pneumonia - hx of - 3 years ago Denies: Asthma, Chronic Obstructive Pulmonary Disease (COPD) Neurological Medical History: Denies: Seizures Endocrine Medical History: Reports: Hyperthyroidism Denies: Hypothyroidism Renal/ Medical History: Denies: End Stage Renal Disease GI Medical History: Denies: Crohn's Disease, Gastroesophageal Reflux Disease, Hiatal Hernia Musculoskeltal Medical History: Reports: Arthritis - hx 0f Denies: Fibromyalgia Psychiatric Medical History: Denies: Dementia, Depression Hematology: Denies: Anemia Past Surgical History Past Surgical History: Reports: Cardiac Catheterization, Cholecystectomy - 2010 , Coronary Artery Bypass Graft - x2, Coronary Stent - x5, Orthopedic Surgery - ankle, multiple Social History Smoking Status: Never Smoker Frequency of Alcohol Use: None Hx Recreational Drug Use: No Drugs: None Hx Prescription Drug Abuse: No - Advance Directive Resuscitation Status: Full Code Family History Family History: CAD, DM Parental Family History Reviewed: Yes Children Family History Reviewed: Yes Sibling(s) Family History Reviewed.: Yes Medication/Allergy Home Medications: Aspirin [Aspirin 81 mg Chewable Tablet] 81 mg PO DAILY 07/10/15 Clopidogrel Bisulfate [Plavix 75 mg Tablet] 75 mg PO DAILY 07/10/15 Gabapentin 300 mg PO QHS 07/10/15 Isosorbide Mononitrate [Imdur 30 mg Tablet.er] 60 mg PO DAILY 07/10/15 Magnesium Oxide [Magnesium] 400 mg PO BID 07/10/15 Metoprolol Tartrate [Lopressor 25 mg Tablet] 50 mg PO BID 07/10/15 Ranolazine [Ranexa] 1,000 mg PO BID 07/10/15 Trazodone HCl [Desyrel 50 mg Tablet] 50 mg PO QHS 07/10/15 Alfuzosin HCl [Alfuzosin HCl ER] 10 mg PO DAILY 08/18/16 Cyanocobalamin/FA/Pyridoxine [Folbic Tablet] 1 each PO DAILY 10/12/16 Docusate Sodium [Colace 100 mg Capsule] 100 mg PO DAILY 10/12/16 Esomeprazole Magnesium [Nexium] 40 mg PO DAILY 10/12/16 Atorvastatin Calcium [Lipitor 20 mg Tablet] 20 mg PO DAILY 10/13/16 Furosemide [Lasix 20 mg Tablet] 20 mg PO DAILY 10/13/16 Levothyroxine Sodium [Synthroid] 150 mcg PO DAILY 10/13/16 Bumetanide 1 mg PO DAILY 02/11/17 Allergies/Adverse Reactions: Fish Containing Products [Fish Product Derivatives] Allergy (Severe, Verified 13:30) Hives Review of Systems Constitutional: ABSENT: chills, fever(s), headache(s), weight gain, weight loss Eyes: ABSENT: visual disturbances Ears: ABSENT: hearing changes Cardiovascular: PRESENT: as per HPI Respiratory: ABSENT: cough, hemoptysis Gastrointestinal: ABSENT: abdominal pain, constipation, diarrhea, hematemesis, hematochezia, nausea, vomiting Genitourinary: ABSENT: dysuria, hematuria Musculoskeletal: ABSENT: joint swelling Integumentary: ABSENT: rash, wounds Neurological: ABSENT: abnormal gait, abnormal speech, confusion, dizziness, focal weakness, syncope Psychiatric: ABSENT: anxiety, depression, homidical ideation, suicidal ideation Endocrine: ABSENT: cold intolerance, heat intolerance, polydipsia, polyuria Hematologic/Lymphatic: ABSENT: easy bleeding, easy bruising Physical Exam Vital Signs: Temp Pulse Resp BP Pulse Ox 97.4 F 20 138/69 H 94 02/11/17 12:44 02/11/17 16:01 02/11/17 16:01 02/11/17 16:01 General appearance: PRESENT: no acute distress, cooperative, well-developed, well-nourished Head exam: PRESENT: atraumatic, normocephalic Eye exam: ABSENT: conjunctival injection, scleral icterus Mouth exam: PRESENT: moist, neck supple Neck exam: PRESENT: JVD. ABSENT: carotid bruit, tracheal deviation Respiratory exam: PRESENT: crackles - bases, unlabored. ABSENT: accessory muscle use, tachypnea Cardiovascular exam: PRESENT: RRR, systolic murmur Pulses: PRESENT: normal radial pulses, normal dorsalis pedis pul Vascular exam: PRESENT: normal capillary refill GI/Abdominal exam: PRESENT: normal bowel sounds, soft. ABSENT: tenderness Extremities exam: PRESENT: +1 edema. ABSENT: calf tenderness - no cords Musculoskeletal exam: PRESENT: ambulatory, full ROM Neurological exam: PRESENT: alert, awake, oriented to person, oriented to place , oriented to time, oriented to situation Psychiatric exam: PRESENT: appropriate affect, normal mood Skin exam: PRESENT: warm. ABSENT: dry Results Laboratory Results: labs reviewed,renal function at baseline, no other sig abnl's noted EKG Comments: NSR with RBBB and inferior infarct as seen on previous, no changes Impressions: Chest X-Ray 02/11/17 12:42 IMPRESSION: NO ACUTE RADIOGRAPHIC FINDING IN THE CHEST. Status: Image reviewed by me Assessment & Plan - Diagnosis (1) Chest pain Qualifiers: Chest pain type: unspecified Qualified Code(s): R07.9 - Chest pain, unspecified Is this a current diagnosis for this admission?: YesPlan: unclear etiology but multiple risk factors for advancing coronary disease. admit to monitored bed for serial cardiac enzymes, consult DR Colby to determine our next step, does he need echo and stress test or transfer for heart cath or no further investigation at this time. continue antiplt Tx, statin, NTG and toprol. add O2 for symptom relief. analgesics and antiemetics prn. (2) Hypertension Qualifiers: Hypertension type: essential hypertension Qualified Code(s): I10 - Essential (primary) hypertension Is this a current diagnosis for this admission?: YesPlan: continue home regimen (3) CAD (coronary artery disease) Qualifiers: Coronary Disease-Associated Artery/Lesion type: unspecified vessel or lesion type [place] vs. transplanted heart: [place] heart Associated angina: angina presence unspecified Qualified Code(s): I25.10 - Atherosclerotic heart disease of [place] coronary artery without angina pectoris Is this a current diagnosis for this admission?: YesPlan: continue home regimen, further eval as noted above (4) Hyperlipidemia Qualifiers: Hyperlipidemia type: unspecified Qualified Code(s): E78.5 - Hyperlipidemia, unspecified Is this a current diagnosis for this admission?: YesPlan: continue statin; request old records from dr colby (5) Hypothyroid Qualifiers: Hypothyroidism type: acquired Qualified Code(s): E03.9 - Hypothyroidism, unspecified Is this a current diagnosis for this admission?: YesPlan: continue home regimen (6) Personal history of pulmonary embolism Is this a current diagnosis for this admission?: YesPlan: stat d dimer and if elevated ck ABG, dopplers and decide on VQ scan vs CTA depending on his renal function and plan for cath or not. - Time Time Spent: Greater than 70 Minutes Medications reviewed and adjusted accordingly: Yes Anticipated discharge: Home Within: within 48 hours
[2017-02-11] MEDS ORDERED: ENOXAPARIN SODIUM INJ 30 MG/0.3 ML DISP.SYRIN SUBCUT ONE (17:30)
[2017-02-11] MEDS: MAGNESIUM OXIDE 400 MG TABLET PO SCH (17:55)
[2017-02-11] MEDS ORDERED: (PENDING PHARMACY ID) (Magnesium Oxide [Magnesium] 400 MG) PO SCH (18:00)
[2017-02-11] MEDS ORDERED: METOPROLOL TARTRATE 25 MG TABLET PO SCH (18:00)
[2017-02-11] MEDS ORDERED: (PENDING PHARMACY ID) (Ranolazine [Ranexa] 1,000 MG) PO SCH (18:00)
[2017-02-11] MEDS: RANOLAZINE 500 MG TAB.SR.12H PO SCH (20:16)
[2017-02-11] MEDS: PANTOPRAZOLE SODIUM 40 MG VIAL IV SCH (21:20)
[2017-02-11] MEDS: METOPROLOL TARTRATE 25 MG TABLET PO SCH (21:21)
[2017-02-11 21:36] LABS: CREATINE KINASE MB 0.54 ng/mL (<4.55); TROPONIN I 0.013 ng/mL
[2017-02-11] MEDS ORDERED: TRAZODONE HCL 50 MG TABLET PO SCH (22:00)
[2017-02-11] MEDS ORDERED: ATORVASTATIN CALCIUM 20 MG TABLET PO SCH (22:00)
[2017-02-11] MEDS ORDERED: GABAPENTIN 300 MG CAPSULE PO SCH (22:00)
[2017-02-11] MEDS ORDERED: METOPROLOL TARTRATE 50 MG TABLET PO SCH (22:00)
[2017-02-11] MEDS ORDERED: DOCUSATE SODIUM 100 MG CAPSULE PO SCH (22:00)
[2017-02-12 03:14] LABS: CREATINE KINASE MB 0.59 ng/mL (<4.55)
[2017-02-12 03:15] LABS: TROPONIN I < 0.012 ng/mL
[2017-02-12] MEDS ORDERED: RANOLAZINE 500 MG TAB.SR.12H PO ONE (06:01)
[2017-02-12] MEDS: RANOLAZINE 500 MG TAB.SR.12H PO SCH (06:11)
[2017-02-12] MEDS: NITROGLYCERIN 0.4 MG/TAB 25 TAB/BOTTLE SL PRN ×2 (06:27→06:50)
[2017-02-12] MEDS ORDERED: ENOXAPARIN SODIUM INJ 30 MG/0.3 ML DISP.SYRIN SUBCUT SCH (08:00)
[2017-02-12 09:29] LABS: CREATINE KINASE MB 0.67 ng/mL (<4.55)
[2017-02-12 09:34] LABS: TROPONIN I < 0.012 ng/mL
[2017-02-12] MEDS: PANTOPRAZOLE SODIUM 40 MG VIAL IV SCH (09:43)
[2017-02-12] MEDS: METOPROLOL TARTRATE 25 MG TABLET PO SCH (09:46)
[2017-02-12] MEDS: MAGNESIUM OXIDE 400 MG TABLET PO SCH (09:47)
--- NOTE | 2017-02-12 09:58 | EKG REPORT ---
SEVERITY:- ABNORMAL ECG - SINUS RHYTHM RIGHT BUNDLE BRANCH BLOCK : Confirmed by: Km Barnes 12-Feb-2017 09:57:28
--- NOTE | 2017-02-12 09:58 | EKG REPORT ---
SEVERITY:- ABNORMAL ECG - SINUS RHYTHM RIGHT BUNDLE BRANCH BLOCK PROBABLE INFERIOR INFARCT, AGE INDETERMINATE : Confirmed by: Km Barnes 12-Feb-2017 09:57:34
[2017-02-12] MEDS ORDERED: CYANOCOBALAMIN/FA/PYRIDOXINE TABLET PO SCH (10:00)
[2017-02-12] MEDS ORDERED: FUROSEMIDE 20 MG TABLET PO SCH (10:00)
[2017-02-12] MEDS ORDERED: ASPIRIN 81 MG TABLET, ENT COATED PO SCH (10:00)
[2017-02-12] MEDS ORDERED: LEVOTHYROXINE SODIUM 0.15 MG TABLET PO SCH (10:00)
[2017-02-12] MEDS ORDERED: ISOSORBIDE MONONITRATE 30 MG TAB.ER.24H PO SCH (10:00)
[2017-02-12] MEDS ORDERED: CLOPIDOGREL BISULFATE 75 MG TABLET PO SCH (10:00)
[2017-02-12] MEDS ORDERED: [UNRECOGNIZED DRUG - OTHER] PO SCH (10:00)
[2017-02-12] MEDS ORDERED: ISOSORBIDE MONONITRATE 60 MG TAB.ER.24H PO SCH (10:00)
[2017-02-12] MEDS ORDERED: CYANOCOBALAMIN PO SCH (10:00)
[2017-02-12] MEDS ORDERED: PYRIDOXINE PO SCH (10:00)
[2017-02-12] MEDS ORDERED: DOCUSATE SODIUM 100 MG CAPSULE PO SCH (10:00)
[2017-02-12] MEDS ORDERED: BUMETANIDE 1 MG TABLET PO SCH (10:00)
--- NOTE | 2017-02-12 12:03 | PDOC DISCHARGE SUMMARY ---
General - Admit/Disc Date/PCP Admission Date/Primary Care Provider: 02/11/17 16:18 KAIDEN CASANOVA MD Discharge Date: 02/12/17 - Discharge Diagnosis (1) Chest pain Is this a current diagnosis for this admission?: YesSummary: he once again r/o'd for acute myocardial ischemia with negative enzymes x4. Dr Colby, shirring machine operator who knows him well and has been evaluating this Right sided chest pain for "some time now", has seen him, reviewed his case and after further discussion with he and his , does not feel further cardiac evaluation is warranted at this time. He and the patient feel like he is stable for d/c home, pt wants to go home. (2) Hypertension Is this a current diagnosis for this admission?: Yes (3) CAD (coronary artery disease) Is this a current diagnosis for this admission?: Yes (4) Hyperlipidemia Is this a current diagnosis for this admission?: Yes (5) Hypothyroid Is this a current diagnosis for this admission?: Yes (6) Personal history of pulmonary embolism Is this a current diagnosis for this admission?: Yes - Additional Information Resuscitation Status: Full Code Discharge Diet: Cardiac Discharge Activity: Activity As Tolerated Home Medications: Alfuzosin HCl [Alfuzosin HCl ER] 10 mg PO DAILY 02/11/17 Aspirin [Aspirin EC] 81 mg PO DAILY 02/11/17 Atorvastatin Calcium [Lipitor 20 mg Tablet] 20 mg PO DAILY 02/11/17 Bumetanide [Bumex 1 mg Tablet] 1 tab PO DAILY 02/11/17 Clopidogrel Bisulfate [Plavix 75 mg Tablet] 75 mg PO DAILY 02/11/17 Cyanocobalamin/FA/Pyridoxine [Folbic Tablet] 1 each PO DAILY 02/11/17 Docusate Sodium [Colace 100 mg Capsule] 100 mg PO QHS 02/11/17 Esomeprazole Magnesium [Nexium] 40 mg PO DAILY 02/11/17 Furosemide [Lasix 20 mg Tablet] 20 mg PO DAILY 02/11/17 Gabapentin [Neurontin 300 mg Capsule] 300 mg PO QHS 02/11/17 Isosorbide Mononitrate [Imdur 60 mg Tablet.er] 60 mg PO DAILY 02/11/17 Levothyroxine Sodium [Synthroid 0.15 mg Tablet] 0.15 mg PO DAILY 02/11/17 Magnesium Oxide [Mag-Ox 400 mg Tablet] 400 mg PO BID 02/11/17 Metoprolol Tartrate [Lopressor 50 mg Tablet] 25 mg PO Q12 02/11/17 Ranolazine [Ranexa] 1,000 mg PO Q12 02/11/17 Trazodone HCl [Desyrel 50 mg Tablet] 50 mg PO QHS 02/11/17 Ranolazine [Ranexa 500 mg Tab.sr] 1,000 mg PO Q12A tab.sr.12h 02/12/17 History of Present Illness Patient complains of: right sided chest pain History of Present Illness: MOLLY GRAY is a 76 year old male presents to the ED from home with sudden onset of right sided dull aching chest pain, non radiating with asct'd dyspnea, diaphoresis, worsening dizziness and nausea all similar to the same symptoms he had with his first [place]. Hospital Course Hospital Course: He reports increasing BLE edema with increase in his shoe size from 10 to 13's as a result and in spite of diuretics. He sees Dr. Colby, cardiology. He has had CABG x2 of 4v each with total of [address] ,unclear if in [place] or graft vessels. He has strong family hx of early [place] in his Dad and other males of the extended family. he denies tobacco or ETOH use, takes statin for chol control and daily antiplt Tx. he also reports a prior hx of PE that presented similarly, took coumadin for a time but was stopped after his last CABG. He has underlying CKD at least stage 3 with baseline Scr 1.3-1.5. he presented 09/2016 with same symptoms, underwent admission to hospital with negative cardiac eval and underwent VQ scan that was low probability. he can't remember his last stress test date or results. last echo in computer is 01/2016 that shows preserved EF 50-55%, inferior wall hypokinesia, LORENZO, mod MR, trace AR , TR. eval in ED is negative so far, ecg shows no change from prior and first enzymes are negative. we were asked to admit for further eval and management given his high risk factors. he was admitted to monitored bed overnight and showed no evidence for ischemic changes on telemetry or in his blood work. Dr Colby has met with he and his and after much discussion it is felt that his pain is non-cardiac in origin and does NOT warrant further evaluation at this time. He is currently symptom free and when I saw him earlier this morning his chest wall was tender to palpation and largely reproduced his symptoms without the diaphoresis but does grab him and make it difficult to take a deep breath. At this point he is stable for d/c home and hsould f/u with his PCP in 1-2 wks for routine hospital f/u and Dr Colby as instructed. return to the eD for worsening or recurrent symptoms. Physical Exam Vital Signs: Temp Pulse Resp BP Pulse Ox 97.9 F 61 17 138/57 H 96 02/12/17 07:14 02/12/17 07:14 02/12/17 07:14 02/12/17 07:14 02/12/17 07:14 Intake & Output 02/11/17 02/12/17 02/13/17 06:59 06:59 06:59 Intake Total 481 Output Total 625 Balance -144 Weight 94.4 kg General appearance: PRESENT: no acute distress, well-developed, well-nourished Head exam: PRESENT: atraumatic, normocephalic Eye exam: ABSENT: conjunctival injection, scleral icterus Mouth exam: PRESENT: moist Neck exam: ABSENT: JVD, tenderness Respiratory exam: PRESENT: chest wall tenderness, clear to auscultation [place]. ABSENT: accessory muscle use Cardiovascular exam: PRESENT: RRR, systolic murmur Pulses: PRESENT: normal radial pulses, normal dorsalis pedis pul GI/Abdominal exam: PRESENT: normal bowel sounds, soft. ABSENT: tenderness Neurological exam: PRESENT: alert, awake, oriented to person, oriented to place , oriented to time, oriented to situation Psychiatric exam: PRESENT: appropriate affect, normal mood Skin exam: PRESENT: dry, warm Results Laboratory Results: 02/11/17 02/12/17 02/12/17 20:31 02:34 08:28 CK-MB (CK-2) 0.54 0.59 0.67 Troponin I 0.013 < 0.012 < 0.012 Impressions: Chest X-Ray 02/11/17 12:42 IMPRESSION: NO ACUTE RADIOGRAPHIC FINDING IN THE CHEST. Qualifiers PATEINT BEING DISCHARGED WITH ANY OF THE FOLLOWING DIAGNOSIS?: No VTE patient discharged on overlapping Therapy?: No Reason(s) for not prescribing Overlap Therapy:: Not indicated Plan Discharge Plan: d/w'd with halima and devaughn to d/c home with outpt f/u Time Spent: Greater than 30 Minutes
[2017-02-12] MEDS ORDERED: ONDANSETRON HCL INJ/PF 4 MG/2 ML SDV IV PRN (13:07)
[2017-02-12 13:43] VITALS: BP 151/70
[2017-02-12] MEDS ORDERED: LANSOPRAZOLE 30 MG TAB.RAP.DR PO SCH (22:00)
--- NOTE | 2017-02-12 22:33 | CONSULTATION REPORT E ---
Consultation Report NAME: MOLLY GRAY : 1940 AGE: 76Y DATE: 02/12/2017 431 A TO: GEOVANNI SPIVEY M.D. FROM: AXEL REGAN M.D. Requesting Physician REASON FOR CONSULTATION: Right-sided chest pain and shortness of breath and leg edema and dyspnea on exertion. HISTORY OF PRESENT ILLNESS: The patient is a 74-year-old male with known history of coronary artery disease, prior MN, history of coronary artery bypass graft surgery, history of stent placement, remote history of pulmonary embolism, hypertension, hyperlipidemia, hypothyroidism, history of GERD, hiatal hernia, and esophageal dysmotility disorder who states that he has had since yesterday sudden onset of dull aching right-sided chest pain nonradiating, not increased with exertion or brought on by exertion with associated dyspnea, diaphoresis, worsening dizziness, and nausea. He claims that these are the symptoms that he had when he had his first MN but he has had these atypical chest pains several times. The last admission was in 09/2016. He presented with similar symptoms, and his V/Q scan was negative for PE, and cardiac workup was negative. Subsequently, the patient had a stress test in the office which was negative for ischemia, and his EF was preserved with an inferior wall hypokinesis. The patient complains of palpitations, increasing leg edema, increasing dyspnea on exertion. He also has dizziness which he describes not as vertigo. This he says seems to be worsening but this is a chronic problem for the patient. He has no orthopnea or PND. He has no clear syncopal episodes. PAST MEDICAL HISTORY: Positive for history of coronary artery bypass graft surgery on 2 occasions, the first in 1990 and the second in 1995. He had a myocardial infarction of the inferior wall in 10/2008. He had symptoms of unstable angina with stents at [facility]. He had a cardiac catheterization and percutaneous intervention of the left main with cutting balloon and stent insertion in the proximal LAD; this was in 10/2008. After that, he had prolonged chest pain and was taken to cardiac catheterization lab and found to have patent sites of percutaneous intervention, and repeat catheterization then showed a wildly patent left main and stent to the proximal LAD was patent. The [place] to the circumflex was patent and also the venetie circumflex this graft was patent. His venetie circumflex was occluded in its origin. He also a right coronary artery which is totally occluded, and he has ceto-bi-pcixd collaterals filling the right coronary artery. He has a history of hypertension, hyperlipidemia, hypothyroidism. He also has a history of GERD. He has a past history of barium swallow showing esophageal dysmotility and also moderate-sized hiatal hernia. He has had chronic right-sided chest pain, pressure tightness, the etiology of which is not clear but most likely related to GI pathology. He also has a remote history of TIA with no recurrence. He also has a remote history of pulmonary embolism with no recurrence. He has a history of diet-controlled diabetes mellitus. He has chronic dizziness. He has not had CVA. There is no history of sleep apnea, has no COPD. He also has chronic kidney disease which is stage 3 with a baseline creatinine of 1.3 to 1.5. PAST SURGICAL HISTORY: Positive for history of coronary artery bypass graft surgery on 2 occasions as mentioned earlier. History of multiple cardiac catheterizations. History of stent placements. He also has had a inguinal hernia repair. He also had a basal cell carcinoma removed from the face. He had right foot surgery secondary to a horseback riding accident. SOCIAL HISTORY: He quit smoking more than 20 years ago. There is no history of IV drug abuse. DISPOSITION: The patient is a FULL CODE. His is his surrogate healthcare decision maker. ALLERGIES: He has no allergies to medications, but he is allergic to [employer]. FAMILY HISTORY: Positive for coronary artery disease. His dad had a heart attack in his 50s. Two brothers in their 60s with history of coronary artery disease, and his sister had coronary artery disease in her 60s. His father also had myocardial infarction. REVIEW OF SYSTEMS: CONSTITUTIONAL: Denies headache, fevers, chills, or rigors. The patient has generalized fatigue and weakness. HEAD: Denies headache, but he has chronic dizziness. EYES: No history of amblyopia or diplopia. No history of amaurosis fugax. EARS: No history of hearing loss. No history of tinnitus. No history of frequent ear infections. NOSE: No history of hay fever. No history of nosebleeds. No history of nasal polyps. MOUTH: No history of altered taste sensation. No history of ulcers of the mouth. No history of bleeding from the gums. THROAT: The patient has intermittent dysphagia although he has not had it for some time. There is no odynophagia. He has had barium swallow in the past which showed no aspiration. SKIN: There are no skin rashes. There is a history of skin cancer removed with no recurrence. There is no history of psoriasis, no history of pruritus, no history of yellowish discoloration of the skin. NECK: No history of neck pain. No history of goiter. No history of enlarged neck lymph nodes. LUNGS: No history of asthma or COPD. No history of sleep apnea. No history of wheezing. No history of cough or sputum production. No history of hemoptysis. He has a past history of pulmonary embolism with no recurrence. CARDIAC: History of coronary artery disease as mentioned earlier. He has a history of right bundle branch block pattern by EKG. History of chronic right-sided chest pain. He also has a history of hypertension, and he has no PND or orthopnea. He does have increasing leg edema recently. He also has dyspnea on exertion with minimal exertion. There are no palpitations or syncope although at this time he had some palpitations which were short lived. GASTROINTESTINAL: History of moderate-sized hiatal hernia. History of GERD. History of intermittent dysphagia. History of esophageal dysmotility. No history of GI bleed. No history of constipation. His appetite remains a little poor of now. No history of jaundice. No history of fatty food intolerance. No altered bowel movements. ENDOCRINE: History of diet-controlled diabetes mellitus type 2. History of hypothyroidism. There is no history of heat or cold intolerance. No history of polydipsia or polyuria. RENAL: There is a history of renal insufficiency, and his GFR is consistent with chronic kidney disease stage 3A. There is no history of symptoms of enlarged prostate. No history of hematuria, polyuria, or dysuria. No history of symptoms of urinary tract infection. PSYCHIATRIC: There is no history of anxiety or depression. No history of suicidal or homicidal ideation. CENTRAL NERVOUS SYSTEM: There is no history of sleep apnea. There is no history of gait imbalance. No history of CVA. He has a remote history of TIA with no recurrence. There are no headaches, migraines, or seizures. MUSCULOSKELETAL: Denies any arthritis or collagen vascular disease. VASCULAR: No history of calf or buttock claudication. No history of DVT. Past history of pulmonary embolism as mentioned earlier. HEMATOLOGIC: No history of anemia. No history of bleeding diathesis. No history of clotting disorders. MEDICATIONS: 1. Aspirin 81 mg chewable p.o. daily. 2. Plavix 75 mg p.o. daily. 3. Gabapentin 300 mg p.o. at bedtime. 4. Isosorbide mononitrate 60 mg p.o. daily. 5. Magnesium oxide 40 mg p.o. b.i.d. 6. Lopressor 50 mg p.o. b.i.d. 7. He is on Ranexa 1000 mg p.o. b.i.d. 8. He is on trazodone (Desyrel) 50 mg p.o. at bedtime for sleep. 9. He also is on *------* 10 mg p.o. daily. 10. He is on cyanocobalamin/folic acid/pyridoxine (Fobic) tablet 1 p.o. each daily. 11. He is on Colace 100 mg p.o. daily. 12. He is on Nexium 40 mg p.o. daily. 13. He is on atorvastatin (Lipitor) 20 mg p.o. daily. 14. He is on Lasix 20 mg p.o. daily. 15. He is on levothyroxine 30 and 150 mcg p.o. daily. 16. He is on Bumex 1 mg p.o. daily. PHYSICAL EXAMINATION: GENERAL: On examination, the patient appears to be well nourished but looks chronically ill, at present in no acute distress although he continues to have right-sided chest pain which is much improved and only mild. There is no chest wall tenderness on the right side or the left side. VITAL SIGNS: He is afebrile with a temperature of 98 degrees Fahrenheit. Pulse is 59 beats per minute. Blood pressure is 136/60. Respirations 16 per minute. O2 saturations are 97% on room air. HEENT: Head is atraumatic, normocephalic. Eyes: Pupils are equal, round, regular, reactive to light and accommodation. There is no conjunctival pallor. There is no scleral icterus. Extraocular movements normal. Ears: Tympanic membranes are normal. External auditory canals are clear. Nose: There is no deviated nasal septum. There is no inflammation of the nasal mucous membranes. There are no nasal polyps. Throat: There are no exudates. There is no tonsillar enlargement. There is no redness of the oropharynx. Mouth: Mucous membranes of the mouth are moist. Tongue is moist. There are no ulcers. There is no bleeding from the gums. SKIN: There are no rashes. There are no lesions of petechiae or ecchymosis. NECK: Supple. There is no JVD. Carotids are equal; there is no bruit. There is no palpable thyromegaly. Trachea is central. LUNGS: Clear to auscultation and percussion. There is no chest wall tenderness. There are no rhonchi, rales or wheezing. CARDIOVASCULAR: S1, S2 are heard. There is no definite S4 gallop. There is no S3 gallop. There is systolic murmur in the left sternal border and the apex. There is no rub. ABDOMEN: Soft, nontender. There is no hepatosplenomegaly. Bowel sounds are well heard. There are no tender areas or masses. There is no rebound, guarding or rigidity. EXTREMITIES: Femoral pulses are slightly diminished. Femorals are well heard. There are no femoral bruits. There is mild pedal edema bilaterally. There is no DVT or cellulitis. There is no calf tenderness. CENTRAL NERVOUS SYSTEM: The patient is conscious, awake, alert, oriented x3 with no focal deficit. PSYCHIATRIC: The patient's judgment and insight are intact. His affect is normal although the patient appears to be slightly depressed. DIAGNOSTIC TESTS: The patient's chest x-ray is negative. The patient's EKG shows right bundle branch block pattern with possible old inferior MN. His subsequent EKG is sinus rhythm, old inferior MN. Right bundle branch block pattern continues from before. His white count is 6700; hemoglobin is 13.3; hematocrit is 38.4; platelet count is 168,000. The patient's D-dimer is 0.44. The patient's sodium is 135.9, potassium 4.1; chloride is 104; CO2 is 27. The patient's BUN is 17; creatinine is 1.31. GFR is reduced at 53 mL which is chronic kidney disease stage 3A. Glucose is 94. Calcium is 8.6. His liver function tests are normal. His cardiac enzymes have been negative x4. His lipase is 62.1. Albumin is 3.1, and his total protein is 5.7. IMPRESSION: 1. Right-sided chest pain, clearly noncardiac. There is no evidence of acute EKG changes and no evidence of biomarkers. 2. Coronary artery disease, history of coronary artery bypass graft surgery, history of old inferior wall myocardial infarction and history of stents. 3. Chronic right-sided chest pain most likely noncardiac. 4. Hypertension well controlled. 5. Hyperlipidemia. 6. Gastroesophageal reflux disease. 7. Hiatal hernia. 8. History of esophageal dysmotility as per prior barium swallow studies a few years ago. 9. Dyspnea on exertion most likely secondary to deconditioning. 10. Hypothyroidism. 11. Diet-controlled diabetes mellitus. 12. Chronic kidney disease stage 3A. 13. History of transient ischemic attack with no recurrence. 14. History of carotid disease. 15. History of chronic dizziness. Note in spite of the prolonged chest pain, the patient has no acute EKG changes, and his troponin-I and other cardiac enzymes have been negative. Hence, it is clearly noncardiac. His dyspnea on exertion is most likely secondary to the patient's deconditioning rather than secondary to a lung or cardiac problem. Leg edema most likely secondary to the patient's renal failure and most likely noncompliance with diet and salt intake. His last echocardiogram in the office seemed to show a normal EF. RECOMMENDATIONS: Continue current medications. Since the patient had a barium swallow with esophageal followthrough a long time ago, we will set this up as an outpatient, and we will follow the patient outpatient. The patient can be discharged. Discussed with Dr. Regan, the attending physician on the case. Also, discussed with the patient and the patient's . Note 40 minutes was spent on this patient with more than 50% of the time spent in direct patient care. His medications have been reviewed. Note that the patient has seen Dr. Colt Jerez and does not want to see him again since the feels that he did not agree with many medications except told him of a diet which I told him was the right thing that Dr. Jerez did and that was the way to start since salt intake and control of blood pressure can regress to a certain degree the extent of kidney disease. We will follow the patient up in the office. In spite of the chest pain being chronic and noncardiac, the patient does have underlying coronary artery disease, and he also claims that this is the same pain he had when he had an MN. Hence, this case involves a highly complex decision making situation. We will follow with you. Note that the patient was seen at 11:40 a.m. until 12:20 p.m., and hence, 40 minutes spent on this patient. DICTATING PHYSICIAN: GEOVANNI SPIVEY M.D. [id number] PHY#: [id number] ID: [id number] JOB#: [id number] ACCT: [id number] cc:GEOVANNI SPIVEY M.D. >
== END 2017-02-12 14:29 | disposition home health service (06) ==
LOC: ER 12:38 → UNDOADMOB 15:45 → EH 15:45 → 4S 17:11
PROVIDERS: ADMIT Internal Medicine; ATTEND Internal Medicine
DX: R07.89 Other chest pain (principal); I25.10 Atherosclerotic heart disease of native coronary artery without angina pectoris; E78.5 Hyperlipidemia, unspecified; E03.9 Hypothyroidism, unspecified; I12.9 Hypertensive chronic kidney disease with stage 1 through stage 4 chronic kidney disease, or unspecified chronic kidney disease; N18.3 Chronic kidney disease, stage 3 (moderate); E11.22 Type 2 diabetes mellitus with diabetic chronic kidney disease; R42 Dizziness and giddiness; I25.2 Old myocardial infarction; K44.9 Diaphragmatic hernia without obstruction or gangrene; K21.9 Gastro-esophageal reflux disease without esophagitis; R06.09 Other forms of dyspnea; R60.9 Edema, unspecified; I45.10 Unspecified right bundle-branch block; Z86.711 Personal history of pulmonary embolism; Z79.82 Long term (current) use of aspirin; Z79.02 Long term (current) use of antithrombotics/antiplatelets; Z95.1 Presence of aortocoronary bypass graft; Z95.5 Presence of coronary angioplasty implant and graft; Z87.891 Personal history of nicotine dependence; Z85.828 Personal history of other malignant neoplasm of skin; Z82.49 Family history of ischemic heart disease and other diseases of the circulatory system
CPT/HCPCS: 93005 ×2; 99285; 36415 ×2; 82553 ×2; 82550; 83690; 85025; 80053; 84484 ×2; 85379; 71010; 93010 ×2; G0378 ×3; A9270 ×16; C9113 ×2; J3490 ×2; J1650; S0164

== ENCOUNTER 2017-04-14 09:47 | Observation (INO) | payer MEDICARE, OTHER ==
[2017-04-14] MEDS ORDERED: ASPIRIN 81 MG TABLET, CHEWABLE PO ONE (09:50)
--- NOTE | 2017-04-14 10:01 | ER Document Report ---
ED General - General Stated Complaint: CHEST PAIN Time Seen by Provider: 04/14/17 09:49 Mode of Arrival: Medic Information source: Patient Notes: 76-year-old male history of 5 stents to bypass multiple [place], pulmonary emboli presents with complaints of right-sided chest pain associated with weakness dizziness. Patient denies any fevers or chills denies any shortness of breath patient notes last heart cath was approximately 4 rs ago TRAVEL OUTSIDE OF THE [place] IN LAST 30 DAYS: No - HPI Onset: Just prior to arrival Onset/Duration: Sudden Quality of pain: Pressure Severity: Mild Pain Level: 1 Associated symptoms: Chest pain Exacerbated by: Denies Relieved by: Other - nitro Similar symptoms previously: No Recently seen / treated by doctor: No - Related Data Allergies/Adverse Reactions: Fish Containing Products [Fish Product Derivatives] Allergy (Severe, Verified 11:01) Hives Home Medications: Current Home Medications Dutasteride 0.5 mg PO DAILY 04/14/17 [History] Levothyroxine Sodium [Synthroid] 125 mcg PO DAILY 04/14/17 [History] Spironolactone 12.5 mg PO BID 04/14/17 [History] Past Medical History - Social History Smoking Status: Never Smoker Cigarette use (# per day): No Chew tobacco use (# tins/day): No Smoking Education Provided: No Family History: CAD, DM - Past Medical History Cardiac Medical History: Reports: Hx Coronary Artery Disease, Hx Heart Attack - x4, [address], Hx Hypercholesterolemia, Hx Hypertension - on meds, Hx Pulmonary Embolism - 2005 Pulmonary Medical History: Reports: Hx Bronchitis - hx of, Hx Pneumonia - hx of - 3 years ago Denies: Hx Asthma, Hx COPD Neurological Medical History: Denies: Hx Cerebrovascular Accident, Hx Seizures Endocrine Medical History: Reports: Hx Hyperthyroidism. Denies: Hx Hypothyroidism Renal/ Medical History: Denies: Hx Benign Prostatic Hyperplasia, Hx End Stage Renal Disease, Hx Kidney Stones, Hx Peritoneal Dialysis GI Medical History: Denies: Hx Crohn's Disease, Hx Gastroesophageal Reflux Disease, Hx Hiatal Hernia, Hx Irritable Bowel, Hx Liver Failure, Hx Ulcer Musculoskeltal Medical History: Reports Hx Arthritis - hx 0f, Denies Hx Fibromyalgia, Denies Hx Multiple Sclerosis, Denies Hx Muscular Dystrophy Psychiatric Medical History: Denies: Hx Dementia, Hx Depression Traumatic Medical History: Denies: Hx Fractures Past Surgical History: Reports: Hx Cardiac Catheterization, Hx Cardiac Surgery - Angioplasty x4, Hx Cholecystectomy - 2010, Hx Coronary Artery Bypass Graft - x2, Hx Coronary Stent - x5, Hx Inguinal Hernia - x2, Hx Orthopedic Surgery - ankle, multiple, Hx Thyroid Surgery - Thyroidectomy - Immunizations Hx Diphtheria, Pertussis, Tetanus Vaccination: No Hx Pneumococcal Vaccination: 02/12/07 Review of Systems - Review of Systems Notes: REVIEW OF SYSTEMS: CONSTITUTIONAL : Denies fever, chills, or sweats. Denies recent illness. EENT: Denies eye, ear, throat, or mouth pain or symptoms. Denies nasal or sinus congestion or discharge. Denies throat, tongue, or mouth swelling or difficulty swallowing. CARDIOVASCULAR: Admits to chest pain. RESPIRATORY: Denies cough, cold, or chest congestion. Denies shortness of breath, difficulty breathing, or wheezing. GASTROINTESTINAL: Denies abdominal pain or distention. Denies nausea, vomiting , or diarrhea. Denies blood in vomitus, stools, or per rectum. Denies black, tarry stools. Denies constipation. GENITOURINARY: Denies difficulty urinating, painful urination, burning, frequency, blood in urine, or discharge. MUSCULOSKELETAL: Denies back or neck pain or stiffness. Denies joint pain or swelling. SKIN: Denies rash, lesions or sores. HEMATOLOGIC : Denies easy bruising or bleeding. LYMPHATIC: Denies swollen, enlarged glands. NEUROLOGICAL: Admits to generalized weakness PSYCHIATRIC: Denies anxiety or stress. Denies depression, suicidal ideation, or homicidal ideation. ALL OTHER SYSTEMS REVIEWED AND NEGATIVE. Dictation was performed using [employer] voice recognition software PHYSICAL EXAMINATION: GENERAL: Well-appearing, well-nourished and in no acute distress. HEAD: Atraumatic, normocephalic. EYES: Pupils equal round and reactive to light, extraocular movements intact, sclera anicteric, conjunctiva are normal. ENT: Nares patent, oropharynx clear without exudates. Moist mucous membranes. NECK: Normal range of motion, supple without lymphadenopathy LUNGS: Breath sounds clear to auscultation bilaterally and equal. No wheezes rales or rhonchi. HEART: stanley rate and rhythm without murmurs midline surgical incision ABDOMEN: Soft, nontender, nondistended abdomen. No guarding, no rebound. No masses appreciated. Musculoskeletal: Normal range of motion, no pitting or edema. No cyanosis. NEUROLOGICAL: Cranial nerves grossly intact. Normal speech, normal gait. Normal sensory, motor exams PSYCH: Normal mood, normal affect. SKIN: Warm, Dry, normal turgor, no rashes or lesions noted. Physical Exam - Vital signs Vitals: Temp Pulse Resp BP Pulse Ox 98.1 F 46 L 16 117/54 L 99 04/14/17 09:55 04/14/17 09:55 04/14/17 09:55 04/14/17 09:55 04/14/17 09:55 Course - Re-evaluation Re-evalutation: 04/14/17 10:00 Patient has had multiple previous presentations for similar chest pain however given his extensive cardiac history I will perform cardiac workup - Vital Signs Vital signs: Temp Pulse Resp BP Pulse Ox 98.1 F 46 L 16 117/54 L 99 04/14/17 09:55 04/14/17 09:55 04/14/17 09:55 04/14/17 09:55 04/14/17 09:55 - Laboratory Result Diagrams: 04/14/17 10:10 04/14/17 10:10 Laboratory results interpreted by me: 04/14/17 04/14/17 10:10 10:10 RBC 3.59 L Hgb 11.7 L Hct 32.5 L Plt Count 141 L Sodium 136.9 L BUN 23 H Creatinine 1.59 H Est GFR ( Amer) 51 L Est GFR (Non-Af Amer) 42 L Creatine Kinase 42 L Total Protein 5.7 L Albumin 3.4 L - EKG Interpretation by Ar EKG shows normal: Sinus rhythm, [place], Intervals, QRS Complexes Rate: Bradycardia Discharge - Discharge Clinical Impression: S/P CABG x 2 Chest pain Qualifiers: Chest pain type: unspecified Qualified Code(s): R07.9 - Chest pain, unspecified CAD (coronary artery disease) Qualifiers: Coronary Disease-Associated Artery/Lesion type: unspecified vessel or lesion type [place] vs. transplanted heart: [place] heart Associated angina: angina presence unspecified Qualified Code(s): I25.10 - Atherosclerotic heart disease of [place] coronary artery without angina pectoris Condition: Stable Disposition: ADMITTED OBSERVATION Admitting Provider: Hospitalist Unit Admitted: Telemetry Referrals: KAIDEN CASANOVA MD [Primary Care Provider] - Follow up as needed
--- NOTE | 2017-04-14 10:22 | RADIOLOGY REPORT (SQ) ---
EXAM DESCRIPTION: CHEST SINGLE VIEW COMPLETED DATE/TIME: 04/14/2017 10:08 am REASON FOR STUDY: cp COMPARISON: 02/11/2017 EXAM PARAMETERS: NUMBER OF VIEWS: One view. TECHNIQUE: Single frontal radiographic view of the chest acquired. RADIATION DOSE: NA LIMITATIONS: None. FINDINGS: LUNGS AND PLEURA: No opacities, masses or pneumothorax. No pleural effusion. MEDIASTINUM AND HILAR STRUCTURES: No masses. Contour normal. HEART AND VASCULAR STRUCTURES: Mild cardiomegaly. No evidence failure. BONES: No acute findings. HARDWARE: Status post CABG. OTHER: No other significant finding. IMPRESSION: Mild cardiomegaly without evidence of acute cardiopulmonary disease. TECHNICAL DOCUMENTATION: JOB ID: [id number]
[2017-04-14 10:23] LABS: ABSOLUTE BASOPHILS # (AUTO) 0.1 10^3/uL (0.0-0.2); ABSOLUTE EOSINOPHILS # (AUTO) 0.3 10^3/uL (0.0-0.6); ABSOLUTE LYMPHOCYTES (AUTO) 1.4 10^3/uL (0.5-4.7); ABSOLUTE MONOCYTES (AUTO) 0.7 10^3/uL (0.1-1.4); ABSOLUTE NEUT (AUTO) 4.5 10^3/uL (1.7-8.2); BASOPHILS % (AUTO) 0.7 % (0-2); EOSINOPHILS % (AUTO) 3.9 % (0-6); HEMATOCRIT 32.5 % (37.9-51.0); HEMOGLOBIN 11.7 g/dL (13.5-17.0); HGB HCT DIFFERENCE 2.6; LYMPHOCYTES % (AUTO) 20.8 % (13-45); MEAN CORPUSCULAR HEMOGLOBIN 32.6 pg (27.0-33.4); MEAN CORPUSCULAR VOLUME 91 fl (80-97); MONOCYTES % (AUTO) 9.9 % (3-13); RED BLOOD COUNT 3.59 10^6/uL (4.35-5.55); RED CELL DISTRIBUTION WIDTH 13.4 % (11.5-14.0); SEGMENTED NEUTROPHILS % (AUTO) 64.7 % (42-78); WHITE BLOOD COUNT 6.9 10^3/uL (4.0-10.5)
[2017-04-14 10:48] LABS: ALANINE AMINOTRANSFERASE 21 U/L (21-72); ALBUMIN 3.4 g/dL (3.5-5.0); ALKALINE PHOSPHATASE 45 U/L (38-126); ANION GAP 8 (5-19); ASPARTATE AMINO TRANSFERASE 18 U/L (17-59); BILIRUBIN,DIRECT 0.3 mg/dL (0.0-0.4); BILIRUBIN,TOTAL 0.8 mg/dL (0.2-1.3); BLOOD UREA NITROGEN 23 mg/dL (7-20); CALCIUM 9.5 mg/dL (8.4-10.2); CARBON DIOXIDE 28 mmol/L (22-30); CHLORIDE 101 mmol/L (98-107); CREATINE KINASE 42 U/L (55-170); CREATININE RESULT 1.59 mg/dL (0.52-1.25); GLUCOSE 98 mg/dL (75-110); POTASSIUM 4.2 mmol/L (3.6-5.0); SODIUM 136.9 mmol/L (137-145); TOTAL PROTEIN 5.7 g/dL (6.3-8.2)
[2017-04-14 10:59] LABS: CREATINE KINASE MB 0.59 ng/mL (<4.55); TROPONIN I < 0.012 ng/mL
[2017-04-14] MEDS ORDERED: NITROGLYCERIN 0.4 MG/TAB 25 TAB/BOTTLE SL PRN (11:59)
--- NOTE | 2017-04-14 13:02 | PDOC H&P ---
History of Present Illness Admission Date/PCP: 04/14/17 12:22 KAIDEN CASANOVA MD Patient complains of: Right sided chest pain that has been ongoing since 5 am this morning History of Present Illness: MOLLY GRYA is a 76 year old male with a history of 5 stents to bypass multiple [place], pulmonary emboli presents with complaints of right-sided chest pain associated with weakness dizziness. Patient denies any fevers or chills denies any shortness of breath patient notes last heart cath was approximately 4 yrs ago. Patient denies any shortness of breath, dyspnea or diaphoresis associated with the pain. He states the pain does not change with activity or rest. He has had similar presentations in the past. His last hospitalization was in 02/2017 for the same. He has had visits with his assistant credit manager and supervisor sound technician since then as well. Past Medical History Cardiac Medical History: Reports: Coronary Artery Disease, Myocardial Infarction - x4, [address], Hyperlipidema, Hypertension - on meds, Pulmonary Embolism - 2005 Pulmonary Medical History: Reports: Bronchitis - hx of, Pneumonia - hx of - 3 years ago Denies: Asthma, Chronic Obstructive Pulmonary Disease (COPD) EENT Medical History: Reports: None Neurological Medical History: Reports: None Denies: Seizures Endocrine Medical History: Reports: Hyperthyroidism Denies: Hypothyroidism Renal/ Medical History: Reports: None, Chronic Kidney Disease Denies: End Stage Renal Disease GI Medical History: Denies: Crohn's Disease, Gastroesophageal Reflux Disease, Hiatal Hernia Musculoskeltal Medical History: Reports: Arthritis - hx 0f Denies: Fibromyalgia Psychiatric Medical History: Reports: None Denies: Dementia, Depression Traumatic Medical History: Reports: None Hematology: Denies: Anemia Infectious Medical History: Reports: None Past Surgical History Past Surgical History: Reports: Cardiac Catheterization, Cholecystectomy - 2009 , Coronary Artery Bypass Graft - x2, Coronary Stent - x5, Orthopedic Surgery - ankle, multiple Social History Information Source: Patient Lives with: Spouse/Significant other Smoking Status: Never Smoker Frequency of Alcohol Use: None Hx Recreational Drug Use: No Drugs: None Hx Prescription Drug Abuse: No - Advance Directive Resuscitation Status: Full Code Family History Family History: CAD, DM Parental Family History Reviewed: Yes Children Family History Reviewed: Yes Sibling(s) Family History Reviewed.: Yes Medication/Allergy Home Medications: Alfuzosin HCl [Alfuzosin HCl ER] 10 mg PO DAILY 02/11/17 Aspirin [Aspirin EC] 81 mg PO DAILY 02/11/17 Atorvastatin Calcium [Lipitor 20 mg Tablet] 20 mg PO DAILY 02/11/17 Bumetanide [Bumex 1 mg Tablet] 1 tab PO DAILY 02/11/17 Clopidogrel Bisulfate [Plavix 75 mg Tablet] 75 mg PO DAILY 02/11/17 Cyanocobalamin/FA/Pyridoxine [Folbic Tablet] 1 each PO DAILY 02/11/17 Docusate Sodium [Colace 100 mg Capsule] 100 mg PO QHS 02/11/17 Esomeprazole Magnesium [Nexium] 40 mg PO DAILY 02/11/17 Furosemide [Lasix 20 mg Tablet] 20 mg PO DAILY 02/11/17 Gabapentin [Neurontin 300 mg Capsule] 300 mg PO QHS 02/11/17 Isosorbide Mononitrate [Imdur 60 mg Tablet.er] 60 mg PO DAILY 02/11/17 Magnesium Oxide [Mag-Ox 400 mg Tablet] 400 mg PO BID 02/11/17 Metoprolol Tartrate [Lopressor 50 mg Tablet] 25 mg PO Q12 02/11/17 Ranolazine [Ranexa] 1,000 mg PO Q12 02/11/17 Trazodone HCl [Desyrel 50 mg Tablet] 50 mg PO QHS 02/11/17 Dutasteride 0.5 mg PO DAILY 04/14/17 Levothyroxine Sodium [Synthroid] 125 mcg PO DAILY 04/14/17 Spironolactone 12.5 mg PO BID 04/14/17 Allergies/Adverse Reactions: Fish Containing Products [Fish Product Derivatives] Allergy (Severe, Verified 11:01) Hives Review of Systems Constitutional: PRESENT: as per HPI Eyes: ABSENT: visual disturbances Ears: ABSENT: hearing changes Cardiovascular: PRESENT: chest pain, dyspnea on exertion, edema Respiratory: ABSENT: cough, hemoptysis Gastrointestinal: PRESENT: heartburn. ABSENT: abdominal pain, constipation, diarrhea, hematemesis, hematochezia, nausea, vomiting Genitourinary: PRESENT: difficulty urinating. ABSENT: dysuria, hematuria Musculoskeletal: ABSENT: joint swelling Integumentary: ABSENT: rash, wounds Neurological: ABSENT: abnormal gait, abnormal speech, confusion, dizziness, focal weakness, syncope Psychiatric: ABSENT: anxiety, depression, homidical ideation, suicidal ideation Endocrine: ABSENT: cold intolerance, heat intolerance, polydipsia, polyuria Hematologic/Lymphatic: ABSENT: easy bleeding, easy bruising Physical Exam Vital Signs: Temp Pulse Resp BP Pulse Ox 98.1 F 46 L 16 134/59 H 96 04/14/17 09:55 04/14/17 09:55 04/14/17 12:00 04/14/17 12:00 04/14/17 12:00 General appearance: PRESENT: no acute distress Head exam: PRESENT: atraumatic, normocephalic Eye exam: PRESENT: conjunctiva pink, EOMI, PERRLA. ABSENT: scleral icterus Ear exam: PRESENT: normal external ear exam Mouth exam: PRESENT: moist, tongue midline Neck exam: ABSENT: carotid bruit, JVD, lymphadenopathy, thyromegaly Respiratory exam: PRESENT: clear to auscultation sania. ABSENT: rales, rhonchi, wheezes Cardiovascular exam: PRESENT: bradycardia, RRR, +S1, +S2 Pulses: PRESENT: normal dorsalis pedis pul Vascular exam: PRESENT: normal capillary refill GI/Abdominal exam: PRESENT: normal bowel sounds, soft. ABSENT: distended, guarding, mass, organolmegaly, rebound, tenderness Rectal exam: PRESENT: deferred Extremities exam: PRESENT: full ROM. ABSENT: calf tenderness, clubbing, pedal edema Neurological exam: PRESENT: alert, awake, oriented to person, oriented to place , oriented to time, oriented to situation, CN II-XII grossly intact. ABSENT: motor sensory deficit Psychiatric exam: PRESENT: appropriate affect, normal mood. ABSENT: homicidal ideation, suicidal ideation Skin exam: PRESENT: dry, intact, warm. ABSENT: cyanosis, rash Results Impressions: Chest X-Ray 04/14/17 09:50 IMPRESSION: Mild cardiomegaly without evidence of acute cardiopulmonary disease. Assessment & Plan - Diagnosis (1) Chest pain Qualifiers: Chest pain type: unspecified Qualified Code(s): R07.9 - Chest pain, unspecified Is this a current diagnosis for this admission?: YesPlan: Pain is atypical for cardiac in origin. First troponin is negative. ECG shows no acute changes. Will admit on observation with serial troponins to rule out for acute coronary syndrome (2) CAD (coronary artery disease) Qualifiers: Coronary Disease-Associated Artery/Lesion type: unspecified vessel or lesion type [place] vs. transplanted heart: [place] heart Associated angina: angina presence unspecified Qualified Code(s): I25.10 - Atherosclerotic heart disease of [place] coronary artery without angina pectoris (3) GERD (gastroesophageal reflux disease) Qualifiers: Esophagitis presence: without esophagitis Qualified Code(s): K21.9 - Gastro-esophageal reflux disease without esophagitis (4) Hypertension Qualifiers: Hypertension type: essential hypertension Qualified Code(s): I10 - Essential (primary) hypertension Plan: Continue home medications except for beta ankur will hold for due to bradycardia with HR in the 40's and possible stress test in the am (5) Hyperlipidemia Qualifiers: Hyperlipidemia type: unspecified Qualified Code(s): E78.5 - Hyperlipidemia, unspecified Is this a current diagnosis for this admission?: YesPlan: Continue statin (6) Hypothyroid Qualifiers: Hypothyroidism type: acquired Qualified Code(s): E03.9 - Hypothyroidism, unspecified Is this a current diagnosis for this admission?: YesPlan: Continue levoxyl (7) Personal history of pulmonary embolism Is this a current diagnosis for this admission?: Yes - Time Time Spent: 50 to 70 Minutes Critical Time spent with patient: 25-34 minutes Medications reviewed and adjusted accordingly: Yes Anticipated discharge: Home with Homehealth Within: within 24 hours
[2017-04-14] MEDS: MORPHINE SULFATE 10 MG/ML INJ IV PRN ×2 (14:28→21:13)
[2017-04-14] MEDS: MAGNESIUM OXIDE 400 MG TABLET PO SCH (17:12)
--- NOTE | 2017-04-14 18:25 | EKG REPORT ---
SEVERITY:- ABNORMAL ECG - SINUS BRADYCARDIA ATRIAL PREMATURE COMPLEX RIGHT BUNDLE BRANCH BLOCK DIFFUSE NONSPECIFIC ST-T CHANGES : Confirmed by: Wayne Batista MD 14-Apr-2017 18:24:35
[2017-04-14] MEDS: SPIRONOLACTONE 25 MG TABLET PO SCH (21:13)
[2017-04-14] MEDS ORDERED: GABAPENTIN 300 MG CAPSULE PO SCH (22:00)
[2017-04-14] MEDS ORDERED: (PENDING PHARMACY ID) (Ranolazine [Ranexa] 1,000 MG) PO SCH (22:00)
[2017-04-14] MEDS ORDERED: TRAZODONE HCL 50 MG TABLET PO SCH (22:00)
[2017-04-14] MEDS ORDERED: DOCUSATE SODIUM 100 MG CAPSULE PO SCH (22:00)
[2017-04-15] MEDS ORDERED: RANOLAZINE 500 MG TAB.SR.12H PO ONE (00:28)
[2017-04-15] MEDS: RANOLAZINE 500 MG TAB.SR.12H PO SCH ×2 (00:46→10:43)
[2017-04-15] MEDS: MORPHINE SULFATE 10 MG/ML INJ IV PRN (02:29)
[2017-04-15] MEDS ORDERED: LANSOPRAZOLE 30 MG TAB.RAP.DR PO SCH (06:00)
[2017-04-15 08:35] VITALS: BP 126/50
[2017-04-15] MEDS: MAGNESIUM OXIDE 400 MG TABLET PO SCH (09:28)
[2017-04-15] MEDS: SPIRONOLACTONE 25 MG TABLET PO SCH (09:28)
[2017-04-15] MEDS ORDERED: LEVOTHYROXINE SODIUM 0.025 MG TABLET PO SCH (10:00)
[2017-04-15] MEDS ORDERED: (PENDING PHARMACY ID) (Alfuzosin Hcl [Alfuzosin Hcl Er] 10 MG) PO SCH (10:00)
[2017-04-15] MEDS ORDERED: DUTASTERIDE 0.5 MG CAPSULE PO SCH (10:00)
[2017-04-15] MEDS ORDERED: CLOPIDOGREL BISULFATE 75 MG TABLET PO SCH (10:00)
[2017-04-15] MEDS ORDERED: ATORVASTATIN CALCIUM 20 MG TABLET PO SCH (10:00)
[2017-04-15] MEDS ORDERED: ISOSORBIDE MONONITRATE 60 MG TAB.ER.24H PO SCH (10:00)
[2017-04-15] MEDS ORDERED: FUROSEMIDE 20 MG TABLET PO SCH (10:00)
[2017-04-15] MEDS ORDERED: (PENDING PHARMACY ID) (Levothyroxine Sodium [Synthroid] 125 MCG) PO SCH (10:00)
[2017-04-15] MEDS ORDERED: ASPIRIN 81 MG TABLET, ENT COATED PO SCH (10:00)
[2017-04-15] MEDS ORDERED: LEVOTHYROXINE SODIUM 0.1 MG TABLET PO SCH (10:00)
[2017-04-15] MEDS ORDERED: TAMSULOSIN HCL 0.4 MG CAP.SR.24H PO SCH (10:00)
--- NOTE | 2017-04-15 12:47 | PDOC DISCHARGE SUMMARY ---
General - Admit/Disc Date/PCP Admission Date/Primary Care Provider: 04/14/17 11:59 KAIDEN CASANOVA MD Discharge Date: 04/15/17 - Discharge Diagnosis (1) Chest pain Is this a current diagnosis for this admission?: YesSummary: Troponins all less than <0.012 x 3. Pain is musculoskeletal in origin. Will discharge home (2) CAD (coronary artery disease) Summary: Continue home medications (3) GERD (gastroesophageal reflux disease) Is this a current diagnosis for this admission?: YesSummary: Continue PPI therapy (4) Hypertension Summary: Continue current medication he is normotensive (5) Hyperlipidemia Is this a current diagnosis for this admission?: YesSummary: Continue statin (6) Hypothyroid Is this a current diagnosis for this admission?: YesSummary: Continue levoxyl (7) Personal history of pulmonary embolism Is this a current diagnosis for this admission?: Yes - Additional Information Resuscitation Status: Full Code Discharge Diet: Cardiac Discharge Activity: Activity As Tolerated, Balance Activity w/Rest Home Medications: Alfuzosin HCl [Alfuzosin HCl ER] 10 mg PO DAILY 02/11/17 Aspirin [Aspirin EC] 81 mg PO DAILY 02/11/17 Atorvastatin Calcium [Lipitor 20 mg Tablet] 20 mg PO DAILY 02/11/17 Bumetanide [Bumex 1 mg Tablet] 1 mg PO DAILY 02/11/17 Clopidogrel Bisulfate [Plavix 75 mg Tablet] 75 mg PO DAILY 02/11/17 Cyanocobalamin/FA/Pyridoxine [Folbic Tablet] 1 each PO DAILY 02/11/17 Docusate Sodium [Colace 100 mg Capsule] 100 mg PO DAILY 02/11/17 Esomeprazole Magnesium [Nexium] 40 mg PO DAILY 02/11/17 Furosemide [Lasix 20 mg Tablet] 20 mg PO DAILY 02/11/17 Gabapentin [Neurontin 300 mg Capsule] 300 mg PO QHS 02/11/17 Isosorbide Mononitrate [Imdur 60 mg Tablet.er] 60 mg PO DAILY 02/11/17 Magnesium Oxide [Mag-Ox 400 mg Tablet] 400 mg PO BID 02/11/17 Metoprolol Tartrate [Lopressor 50 mg Tablet] 25 mg PO Q12 02/11/17 Ranolazine [Ranexa] 1,000 mg PO Q12 02/11/17 Trazodone HCl [Desyrel 50 mg Tablet] 50 mg PO QHS 02/11/17 Dutasteride 0.5 mg PO DAILY 04/14/17 Levothyroxine Sodium [Synthroid] 125 mcg PO DAILY 04/14/17 Spironolactone 12.5 mg PO BID 04/14/17 History of Present Illness Patient complains of: Right sided chest pain History of Present Illness: MOLLY GRAY is a 76 year old male with a history of 5 stents to bypass multiple [place], pulmonary emboli presents with complaints of right-sided chest pain associated with weakness dizziness. Patient denies any fevers or chills denies any shortness of breath patient notes last heart cath was approximately 4 yrs ago. Patient denies any shortness of breath, dyspnea or diaphoresis associated with the pain. He states the pain does not change with activity or rest. He has had similar presentations in the past. His last hospitalization was in 02/2017 for the same. He has had visits with his band sawyer and nurse's aides teacher since then as well. Hospital Course Hospital Course: Patient was admitted to telemetry unit on observation. He had serial troponins done overnight. All were less than 0.012. He had no further episodes of chest discomfort. The pain does not appear cardiac in nature. He has a follow-up with his band sawyer Dr. Colby in 2 weeks. He will follow-up with his primary care provider in the interim. He will be discharged home with family to resume home health and home physical therapy. Physical Exam Vital Signs: Temp Pulse Resp BP Pulse Ox 98.0 F 53 L 17 126/50 H 95 04/15/17 10:28 04/15/17 10:28 04/15/17 10:28 04/15/17 10:28 04/15/17 10:28 Intake & Output 04/14/17 04/15/17 04/16/17 06:59 06:59 06:59 Intake Total 270 Output Total 850 Balance -580 Weight 83.1 kg General appearance: PRESENT: no acute distress, well-developed, well-nourished Head exam: PRESENT: atraumatic, normocephalic Eye exam: PRESENT: conjunctiva pink, EOMI, PERRLA. ABSENT: scleral icterus Ear exam: PRESENT: normal external ear exam Mouth exam: PRESENT: moist, tongue midline Neck exam: ABSENT: carotid bruit, JVD, lymphadenopathy, thyromegaly Respiratory exam: PRESENT: clear to auscultation sania. ABSENT: rales, rhonchi, wheezes Cardiovascular exam: PRESENT: RRR. ABSENT: diastolic murmur, rubs, systolic murmur Pulses: PRESENT: normal dorsalis pedis pul Vascular exam: PRESENT: normal capillary refill GI/Abdominal exam: PRESENT: normal bowel sounds, soft. ABSENT: distended, guarding, mass, organolmegaly, rebound, tenderness Rectal exam: PRESENT: deferred Extremities exam: PRESENT: full ROM. ABSENT: calf tenderness, clubbing, pedal edema Neurological exam: PRESENT: alert, awake, oriented to person, oriented to place , oriented to time, oriented to situation, CN II-XII grossly intact. ABSENT: motor sensory deficit Psychiatric exam: PRESENT: appropriate affect, normal mood. ABSENT: homicidal ideation, suicidal ideation Skin exam: PRESENT: dry, intact, warm. ABSENT: cyanosis, rash Results Laboratory Results: 04/14/17 04/14/17 04/15/17 15:54 22:00 04:01 Troponin I < 0.012 < 0.012 < 0.012 Impressions: Chest X-Ray 04/14/17 09:50 IMPRESSION: Mild cardiomegaly without evidence of acute cardiopulmonary disease. Qualifiers PATEINT BEING DISCHARGED WITH ANY OF THE FOLLOWING DIAGNOSIS?: No Plan Discharge Plan: Home with home health and physical therapy Time Spent: Less than 30 Minutes
== END 2017-04-15 11:34 | disposition home health service (06) ==
LOC: ER 09:47 → EH 11:59 → UNDOADMOB 12:22 → 4N 13:33
PROVIDERS: ADMIT Family Medicine; ATTEND Family Medicine
DX: R07.89 Other chest pain (principal); I25.10 Atherosclerotic heart disease of native coronary artery without angina pectoris; K21.9 Gastro-esophageal reflux disease without esophagitis; I10 Essential (primary) hypertension; E78.5 Hyperlipidemia, unspecified; E03.9 Hypothyroidism, unspecified; R00.1 Bradycardia, unspecified; I25.2 Old myocardial infarction; Z86.711 Personal history of pulmonary embolism; Z79.82 Long term (current) use of aspirin; Z79.899 Other long term (current) drug therapy; Z79.02 Long term (current) use of antithrombotics/antiplatelets; Z95.5 Presence of coronary angioplasty implant and graft; Z95.1 Presence of aortocoronary bypass graft; Z87.01 Personal history of pneumonia (recurrent); Z90.49 Acquired absence of other specified parts of digestive tract; Z82.49 Family history of ischemic heart disease and other diseases of the circulatory system
CPT/HCPCS: 93005; 99285; 36415 ×2; 82553; 82550; 85025; 80053; 84484 ×2; 71010; 93010; A9270 ×16; J2270 ×2; J3490 ×2; G0378

== ENCOUNTER → 2017-10-21 | Outpatient (CLI) | payer MEDICARE ==
--- NOTE | 2017-10-21 11:47 | XCELERA REPORT ---
[address] [address] Lower Extremity Venous Evaluation Name: MOLLY GRAY Age: 77 yrs Gender: Male : 1940 Patient Status: Outpatient Patient Location: Study Date: 10/21/2017 11:09 AM Procedure: Color flow and duplex imaging bilaterally of the veins of the lower extremities as well as the Common Femoral veins. Reason For Study: LLE EDEMA Ordering Physician: DEON ROJAS Performed By: Mary Jo Reeder Right Sided Venous Evaluation Normal vessel filling wall to wall, compression and augmentation as well as Colour flow down to the infrageniculate veins. Left Sided Venous Evaluation Normal vessel filling wall to wall, compression and augmentation as well as Colour flow down to the infrageniculate veins. Interpretation Summary No duplex evidence of DVT or obstruction in the bilateral lower extremities. : DEON ROJAS > Billy Hyman
== END ==
LOC: SP 10:44
PROVIDERS: ATTEND Registered Nurse
DX: R60.0 Localized edema (principal)
CPT/HCPCS: 93971

== ENCOUNTER 2018-01-09 11:10 | Emergency (ER) | payer MEDICARE, OTHER ==
[2018-01-09] MEDS ORDERED: ASPIRIN 81 MG TABLET, CHEWABLE PO ONE (11:11)
--- NOTE | 2018-01-09 11:36 | ER Document Report ---
ED Cardiac - General Chief Complaint: Chest Pain Stated Complaint: CHEST PAIN Time Seen by Provider: 01/09/18 11:17 Information source: Patient Notes: 77-year-old male with past medical history as recorded including CABG 2 in 1980 in 1985 followed by multiple stents. He states his last stent placement was greater than 2 years. Patient is followed by the local training executive here Dr. Aguilar. Patient states around 90 minutes prior to arrival he felt some 6 out of 10 maximum left-sided chest "pain". Patient states he was sitting when this occurred. He denies any nausea, vomiting, diaphoresis, calf pain, leg swelling, or shortness of breath. He denies any recent upper respiratory tract infection symptoms. Patient took nitroglycerin at home with some relief. States his pain is currently 2 out of 10. TRAVEL OUTSIDE OF THE [place] IN LAST 30 DAYS: No - HPI Patient complains to provider of: Chest pain Was the onset of pain: Sudden Is the pain a: New problem Chest pain location: Under breast Quality of pain: Other - See above Chest pain radiation location: Left arm Severity now: Mild Severity at worst: Moderate Pain level currently: 1 Cardiac risk factors: None Positive cardiac history: No Associated symptoms: Other - See above Exacerbated by: Denies Relieved by: NTG Similar symptoms previously: No Recently seen / treated by doctor: No - Related Data Allergies/Adverse Reactions: Fish Containing Products [Fish Product Derivatives] Allergy (Severe, Verified 11:33) Hives Past Medical History - General Information source: Patient - Social History Smoking Status: Never Smoker Cigarette use (# per day): No Chew tobacco use (# tins/day): No Smoking Education Provided: No Frequency of alcohol use: None Drug Abuse: None Family History: CAD, DM Patient has suicidal ideation: No Patient has homicidal ideation: No - Past Medical History Cardiac Medical History: Reports: Hx Congestive Heart Failure, Hx Coronary Artery Disease, Hx Heart Attack - four, Hx Hypercholesterolemia, Hx Hypertension , Hx Pulmonary Embolism - 2005 Pulmonary Medical History: Reports: Hx Bronchitis, Hx Pneumonia - hx of - 3 years ago Denies: Hx Asthma, Hx COPD Neurological Medical History: Denies: Hx Cerebrovascular Accident, Hx Seizures Endocrine Medical History: Reports: Hx Hyperthyroidism. Denies: Hx Hypothyroidism Renal/ Medical History: Reports: Hx Benign Prostatic Hyperplasia. Denies: Hx End Stage Renal Disease, Hx Kidney Stones, Hx Peritoneal Dialysis GI Medical History: Denies: Hx Crohn's Disease, Hx Gastroesophageal Reflux Disease, Hx Hiatal Hernia, Hx Irritable Bowel, Hx Liver Failure, Hx Pancreatitis , Hx Ulcer Musculoskeltal Medical History: Reports Hx Arthritis - hx 0f, Denies Hx Fibromyalgia, Denies Hx Multiple Sclerosis, Denies Hx Muscular Dystrophy Psychiatric Medical History: Denies: Hx Dementia, Hx Depression Traumatic Medical History: Denies: Hx Fractures Past Surgical History: Reports: Hx Cardiac Catheterization - stents x5, Hx Cardiac Surgery - Angioplasty x4, Hx Cholecystectomy - 2010, Hx Coronary Artery Bypass Graft - x2, Hx Coronary Stent - x5, Hx Inguinal Hernia - x2, Hx Orthopedic Surgery - ankle, multiple, Hx Thyroid Surgery - Thyroidectomy - Immunizations Hx Diphtheria, Pertussis, Tetanus Vaccination: No Hx Pneumococcal Vaccination: 02/12/07 Review of Systems - Review of Systems Constitutional: denies: Fever EENT: denies: Eye discharge, Nose discharge Cardiovascular: Chest pain. denies: Palpitations, Heart racing, Syncope Respiratory: denies: Short of breath Gastrointestinal: denies: Diarrhea, Vomiting Genitourinary: denies: Dysuria Musculoskeletal: denies: Leg swelling Skin: Other - no hives. denies: Rash Neurological/Psychological: Other - no slurred speech -: Yes All other systems reviewed and negative Physical Exam - Vital signs Vitals: Resp BP Pulse Ox 17 138/63 H 97 01/09/18 11:15 01/09/18 11:15 01/09/18 11:15 Notes: Reviewed vital signs and nursing note as charted by RN. CONSTITUTIONAL: Alert and oriented and responds appropriately to questions. Well -appearing; well-nourished HEAD: Normocephalic; atraumatic NECK: Supple without meningismus; non-tender; no cervical lymphadenopathy, no masses CARD: Regular rate and rhythm; no murmurs, no clicks, no rubs, no gallops; symmetric distal pulses RESP: Normal chest excursion without splinting or tachypnea; breath sounds clear and equal bilaterally; no wheezes, no rhonchi, no rales ABD/GI: Normal bowel sounds; non-distended; soft, non-tender BACK: The back appears normal and is non-tender to palpation, there is no CVA tenderness EXT: Normal ROM in all joints; non-tender to palpation; no edema SKIN: Normal color for age and race; no acute lesions noted NEURO: Moves all extremities equally; Motor and sensory function intact PSYCH: The patient's mood and manner are appropriate. Grooming and personal hygiene are appropriate. Course - Re-evaluation Re-evalutation: 01/09/18 11:38 EKG shows a heart of 63, normal sinus rhythm, right bundle branch block with left posterior fascicular block. I have obtained the previous EKG from February 2017. This shows a similar right bundle branch block pattern. No obvious ST elevation or depression Given the above history and physical examination, I do believe pulmonary embolism and aortic dissection to be unlikely. 01/09/18 13:26 Labs and initial troponin as recorded. X-ray of the chest shows a mild cardiomegaly with no obvious effusions or infiltrates present Patient is currently chest pain-free. Given the history and physical, we will admit the patient for observation. - Vital Signs Vital signs: Temp Pulse Resp BP Pulse Ox 98.5 F 60 16 127/65 H 96 01/09/18 11:23 01/09/18 11:23 01/09/18 12:01 01/09/18 12:00 01/09/18 12:01 - Laboratory Result Diagrams: 01/09/18 11:20 01/09/18 11:20 Laboratory results interpreted by me: 01/09/18 01/09/18 11:20 11:20 RBC 3.52 L Hgb 11.7 L Hct 32.7 L Plt Count 138 L Eosinophils % 7.5 H BUN 22 H Creatinine 1.37 H Est GFR (Non-Af Amer) 50 L Alkaline Phosphatase 36 L Creatine Kinase 54 L Total Protein 5.2 L Albumin 3.0 L Discharge - Discharge Clinical Impression: Chest pain Qualifiers: Chest pain type: unspecified Qualified Code(s): R07.9 - Chest pain, unspecified Condition: Fair Disposition: ADMITTED OBSERVATION Admitting Provider: Hospitalist Unit Admitted: Telemetry
[2018-01-09 11:42] LABS: ABSOLUTE EOSINOPHILS # (AUTO) 0.6 10^3/uL (0.0-0.6); ABSOLUTE LYMPHOCYTES (AUTO) 1.2 10^3/uL (0.5-4.7); ABSOLUTE MONOCYTES (AUTO) 0.7 10^3/uL (0.1-1.4); ABSOLUTE NEUT (AUTO) 5.3 10^3/uL (1.7-8.2); BASOPHILS % (AUTO) 0.6 % (0-2); EOSINOPHILS % (AUTO) 7.5 % (0-6); HEMATOCRIT 32.7 % (37.9-51.0); HEMOGLOBIN 11.7 g/dL (13.5-17.0); LYMPHOCYTES % (AUTO) 15.5 % (13-45); MEAN CORPUSCULAR HEMOGLOBIN 33.2 pg (27.0-33.4); MEAN CORPUSCULAR HGB CONC 35.7 g/dL (32.0-36.0); MEAN CORPUSCULAR VOLUME 93 fl (80-97); MONOCYTES % (AUTO) 9.5 % (3-13); PLATELET COUNT 138 10^3/uL (150-450); RED BLOOD COUNT 3.52 10^6/uL (4.35-5.55); RED CELL DISTRIBUTION WIDTH 13.2 % (11.5-14.0); SEGMENTED NEUTROPHILS % (AUTO) 66.9 % (42-78); TOTAL CELLS COUNTED % (AUTO) 100 %; WHITE BLOOD COUNT 7.9 10^3/uL (4.0-10.5)
[2018-01-09] MEDS ORDERED: MORPHINE SULFATE 10 MG/ML INJ IV ONE ×3 (11:47→19:02)
[2018-01-09] MEDS ORDERED: NITROGLYCERIN 2% OINTMENT 1 GM PACKET TP ONE (11:47)
[2018-01-09 11:59] LABS: ALANINE AMINOTRANSFERASE 29 U/L (21-72); ALKALINE PHOSPHATASE 36 U/L (38-126); ANION GAP 8 (5-19); ASPARTATE AMINO TRANSFERASE 25 U/L (17-59); BILIRUBIN,DIRECT 0.3 mg/dL (0.0-0.4); BILIRUBIN,TOTAL 0.5 mg/dL (0.2-1.3); BLOOD UREA NITROGEN 22 mg/dL (7-20); CARBON DIOXIDE 26 mmol/L (22-30); CHLORIDE 105 mmol/L (98-107); CREATINE KINASE 54 U/L (55-170); GLUCOSE 104 mg/dL (75-110); POTASSIUM 4.3 mmol/L (3.6-5.0); SODIUM 138.7 mmol/L (137-145); TOTAL PROTEIN 5.2 g/dL (6.3-8.2)
--- NOTE | 2018-01-09 12:15 | RADIOLOGY REPORT (SQ) ---
EXAM DESCRIPTION: CHEST SINGLE VIEW COMPLETED DATE/TIME: 01/09/2018 11:58 am REASON FOR STUDY: cp COMPARISON: AP chest 04/14/2017, 02/11/2017, 10/12/2016 Set EXAM PARAMETERS: NUMBER OF VIEWS: One view. TECHNIQUE: Single frontal radiographic view of the chest acquired. RADIATION DOSE: NA LIMITATIONS: None. FINDINGS: LUNGS AND PLEURA: No opacities, masses or pneumothorax. No pleural effusion. MEDIASTINUM AND HILAR STRUCTURES: No masses. Contour normal. HEART AND VASCULAR STRUCTURES: Mild cardiomegaly, old CABG BONES: No acute findings. HARDWARE: None in the chest. OTHER: No other significant finding. IMPRESSION: Mild cardiomegaly. Old CABG. No acute findings TECHNICAL DOCUMENTATION: JOB ID: [id number] [employer]- All Rights Reserved Reading location - IP/workstation name: [email or web address]
[2018-01-09 12:17] LABS: CREATINE KINASE MB 0.63 ng/mL (<4.55); TROPONIN I 0.014 ng/mL
--- NOTE | 2018-01-09 14:14 | EKG REPORT ---
SEVERITY:- ABNORMAL ECG - SINUS RHYTHM FIRST DEGREE AV BLOCK RIGHT BUNDLE BRANCH BLOCK : Confirmed by: Wayne Batista MD 09-Jan-2018 14:14:11
--- NOTE | 2018-01-09 14:14 | EKG REPORT ---
SEVERITY:- ABNORMAL ECG - SINUS RHYTHM RBBB AND LPFB : Confirmed by: Wayne Batista MD 09-Jan-2018 14:14:25
[2018-01-09] MEDS: ENOXAPARIN SODIUM INJ 100 MG/1 ML DISP.SYRIN SUBCUT SCH ×2 (14:50→19:38)
--- NOTE | 2018-01-09 15:40 | PDOC CONSULTATION ---
Consultation Consult Date: 01/09/18 Attending physician:: KAYY BELLO Consult reason:: Unstable angina History of Present Illness Patient complains of: Chest pain History of Present Illness: MOLLY GRAY is a 77 year old male with known history of coronary artery bypass graft surgery 2 and also multiple stents, who presents to the emergency department with chest pain starting about 90 minutes prior to arrival. Patient has been experiencing chest pain over the last several days and possibly more than a week. He claims chest discomfort lasting about 10-15 minutes, precipitated by minimal exertion and occasionally at rest. Today's symptoms got worse therefore he came to the emergency room. Patient sees Dr. Gilliam locally but also sees Dr. Riggs in [place] where he had multiple coronary interventions done. Patient medical regimen was reviewed and is noted to be very satisfactory. Patient denied any recent sustained palpitations, syncope, near syncope. Patient's initial troponin I was minimally abnormal. EKG showing some minor ST-T wave changes however patient history is very convincing of ongoing unstable angina and possibly non-STEMI. It was felt that patient will need another heart catheterization given his previous history which puts him at high risk for having unstable angina/acute coronary syndrome. Past Medical History Cardiac Medical History: Reports: Congestive Heart Failure, Coronary Artery Disease, Myocardial Infarction - four, Hyperlipidema, Hypertension, Pulmonary Embolism - 2006 Pulmonary Medical History: Reports: Bronchitis, Pneumonia - hx of - 3 years ago Denies: Asthma, Chronic Obstructive Pulmonary Disease (COPD) Neurological Medical History: Denies: Seizures Endocrine Medical History: Reports: Hyperthyroidism Denies: Hypothyroidism Renal/ Medical History: Denies: End Stage Renal Disease GI Medical History: Denies: Crohn's Disease, Gastroesophageal Reflux Disease, Hiatal Hernia Musculoskeltal Medical History: Reports: Arthritis - hx 0f Denies: Fibromyalgia Psychiatric Medical History: Denies: Dementia, Depression Hematology: Denies: Anemia Past Surgical History Past Surgical History: Reports: Cardiac Catheterization - stents x5, Cholecystectomy - 2010, Coronary Artery Bypass Graft - 2, Coronary Stent - x5, Orthopedic Surgery - ankle, multiple Social History Information Source: Patient Smoking Status: Never Smoker Frequency of Alcohol Use: None Hx Recreational Drug Use: No Drugs: None Hx Prescription Drug Abuse: No - Advance Directive Resuscitation Status: Full Code Surrogate healthcare decision maker:: Patient's is the surrogate decision-maker. Family History Family History: CAD, DM Parental Family History Reviewed: Yes Children Family History Reviewed: Yes Sibling(s) Family History Reviewed.: Yes Medication/Allergy Home Medications: Alfuzosin HCl [Alfuzosin HCl ER] 10 mg PO DAILY 02/11/17 Aspirin [Aspirin EC] 81 mg PO DAILY 02/11/17 Atorvastatin Calcium [Lipitor 20 mg Tablet] 20 mg PO DAILY 02/11/17 Bumetanide [Bumex 1 mg Tablet] 1 mg PO DAILY 02/11/17 Clopidogrel Bisulfate [Plavix 75 mg Tablet] 75 mg PO DAILY 02/11/17 Cyanocobalamin/Folic AC/Vit B6 [Folbic Tablet] 1 each PO DAILY 02/11/17 Docusate Sodium [Colace 100 mg Capsule] 100 mg PO DAILY 02/11/17 Esomeprazole Magnesium [Nexium] 40 mg PO DAILY 02/11/17 Furosemide [Lasix 20 mg Tablet] 20 mg PO DAILY 02/11/17 Gabapentin [Neurontin 300 mg Capsule] 300 mg PO QHS 02/11/17 Isosorbide Mononitrate [Imdur 60 mg Tablet.er] 60 mg PO DAILY 02/11/17 Magnesium Oxide [Mag-Ox 400 mg Tablet] 400 mg PO BID 02/11/17 Metoprolol Tartrate [Lopressor 50 mg Tablet] 25 mg PO Q12 02/11/17 Ranolazine [Ranexa] 1,000 mg PO Q12 02/11/17 Trazodone HCl [Desyrel 50 mg Tablet] 50 mg PO QHS 02/11/17 Dutasteride 0.5 mg PO DAILY 04/14/17 Levothyroxine Sodium [Synthroid] 125 mcg PO DAILY 04/14/17 Spironolactone 12.5 mg PO BID 04/14/17 Allergies/Adverse Reactions: Fish Containing Products [Fish Product Derivatives] Allergy (Severe, Verified 11:33) Hives Review of Systems Review of Systems: Please see history of present illness and past medical history as wall. Constitutional: No fever or chills reported. Head : No recent chronic headaches, recent head injury. Eyes: No recent eye pain, diplopia, redness, discharge, acute visual changes. Ears: No recent chronic ear pain, acute hearing loss, ear discharge. Oral cavity: No recent ulcerations, bleeding, oral cavity discomfort. Neck: No recent acute neck pain reported. Hematologic: No recent easy bruising or bleeding. Lymphatic: No recent lymph node enlargement reported. Cardiovascular system review: See history of present illness. Respiratory system review: No hemoptysis or blood clots in the lungs reported. Mild Shortness of breath on exertion Gastrointestinal system review: Negative for any recent acute hematemesis, melena. Genitourinary system review: No recent acute or chronic hematuria, flank pain, UTI etc. reported. Skin system review: Negative for any recent abnormal bruising, no rash, no pruritus reported. Neurologic: No prior history of strokes, mini strokes, seizure disorder. Psychologic: No history of major psychosis or major depression reported. Musculoskeletal: Minor aches and pains reported. No acute joint swelling reported. Endocrine: No recent polyuria, polydipsia, recent heat or cold intolerance. Physical Exam Vital Signs: Temp Pulse Resp BP Pulse Ox 98.5 F 60 16 142/64 H 99 01/09/18 11:23 01/09/18 11:23 01/09/18 15:01 01/09/18 15:01 01/09/18 15:01 Intake & Output 01/08/18 01/09/18 01/10/18 06:59 06:59 06:59 Weight 89.811 kg Exam: GENERAL: well-nourished and in no acute distress. Alert and oriented x3 HEAD: Atraumatic, normocephalic. EYES: Pupils equal round and reactive to light, extraocular movements intact, sclera anicteric, conjunctiva are normal. ENT: TMs normal, nares patent, oropharynx clear without exudates. Moist mucous membranes. No oral ulcerations or bleeding gums noted NECK: supple without lymphadenopathy. Trachea is central. No cervical or axillary lymphadenopathy noted. Carotids are 2+, JVD WNL LUNGS: Respiration seems nonlabored, no significant accessory muscle action noted. Breath sounds clear to auscultation bilaterally and equal noted. No wheezes rales or rhonchi noted. No significant dullness noted on percussion. CHEST: Palpation of the chest wall shows no significant chest wall tenderness. HEART: [place] CHECK GRADER, No PSH, 1/6 AMBER aortic area, 1/6 zavala systolic murmur mitral area, no rubs, no gallops. ABDOMEN: Soft, no significant tenderness appreciated, normoactive bowel sounds. No guarding, no rebound. No rigidity noted . No masses appreciated. EXTREMITIES: Pedal pulses are 1-2+, no calf tenderness noted. No clubbing or cyanosis. negative pedal edema noted NEUROLOGICAL: Focused neurological exam showed no significant neurologic deficit. Normal speech, no focal weakness appreciated. PSYCH: Normal mood, normal affect. Judgment and insight within normal limits. SKIN: No significant ecchymosis, skin is noted to be warm. MUSCULOSKELETAL EXAM: No significant acute joint swelling noted. Results Laboratory Results: 01/09/18 11:20 01/09/18 11:20 01/09/18 01/09/18 11:20 11:20 WBC 7.9 RBC 3.52 L Hgb 11.7 L Hct 32.7 L MCV 93 MCH 33.2 MCHC 35.7 RDW 13.2 Plt Count 138 L Seg Neutrophils % 66.9 Lymphocytes % 15.5 Monocytes % 9.5 Eosinophils % 7.5 H Basophils % 0.6 Absolute Neutrophils 5.3 Absolute Lymphocytes 1.2 Absolute Monocytes 0.7 Absolute Eosinophils 0.6 Absolute Basophils 0.0 Sodium 138.7 Potassium 4.3 Chloride 105 Carbon Dioxide 26 Anion Gap 8 BUN 22 H Creatinine 1.37 H Est GFR ( Amer) > 60 Est GFR (Non-Af Amer) 50 L Glucose 104 Calcium 9.0 Total Bilirubin 0.5 AST 25 ALT 29 Alkaline Phosphatase 36 L Total Protein 5.2 L Albumin 3.0 L 01/09/18 01/09/18 11:20 11:20 Creatine Kinase 54 L CK-MB (CK-2) 0.63 Troponin I 0.014 EKG Comments: Shows sinus rhythm, right bundle branch block pattern with minor nonspecific ST segment changes. QRS complex voltage are noted to be a small. Impressions: Chest X-Ray 01/09/18 11:11 IMPRESSION: Mild cardiomegaly. Old CABG. No acute findings Assessment & Plan - Diagnosis (1) Chest pain Qualifiers: Chest pain type: unspecified Qualified Code(s): R07.9 - Chest pain, unspecified Is this a current diagnosis for this admission?: Yes (2) Diabetes mellitus Qualifiers: Diabetes mellitus type: type 2 Diabetes mellitus detention insulin use: without detention use Diabetes mellitus complication status: with unspecified complications Qualified Code(s): E11.8 - Type 2 diabetes mellitus with unspecified complications (3) Hypertension Qualifiers: Hypertension type: essential hypertension Qualified Code(s): I10 - Essential (primary) hypertension Is this a current diagnosis for this admission?: Yes (4) CAD (coronary artery disease) Qualifiers: Coronary Disease-Associated Artery/Lesion type: unspecified vessel or lesion type [place] vs. transplanted heart: [place] heart Associated angina: angina presence unspecified Qualified Code(s): I25.10 - Atherosclerotic heart disease of [place] coronary artery without angina pectoris (5) Hyperlipidemia Qualifiers: Hyperlipidemia type: unspecified Qualified Code(s): E78.5 - Hyperlipidemia , unspecified Is this a current diagnosis for this admission?: Yes (6) S/P CABG x 2 Is this a current diagnosis for this admission?: Yes (7) Stented coronary artery Is this a current diagnosis for this admission?: Yes - Notes Notes: Patient is an elderly gentleman with known coronary artery disease with 2 separate bypass surgeries, multiple stent who presents with recurrent chest pain over last several days with chest pain at rest. Patient history and presentation suggest unstable angina presentation. There is high probability that patient has progression of known CAD. Patient claims his last intervention was approximately 4 years ago. At this time recommend treating patient with heparin, aspirin, Plavix, statins, beta-ankur and Ranexa therapy. At this point patient heart rate and blood pressure pretty well controlled and is still having intermittent chest pain. Feel that patient will benefit from transfer to tertiary care for heart catheterization. This was explained to patient and his . They are agreeable for transfer. Patient home medications were reviewed. Patient has been noted to be on an optimal regimen for management of coronary artery disease. Patient has diabetes. Would recommend that patient's blood glucose be adequately controlled. Would recommend that patient received GI cocktail and IV Protonix as well. - Time Time Spent: 30 to 50 Minutes - CODE STATUS was discussed, patient remains full code. Surrogate decision-maker unchanged. Multiple medical problems were addressed. More than 50% of the time spent coordinating care, discussing management plans with involved caregivers. Management plans discussed with involved personnels. Medical decision making was of moderate to high complexity , patient's has multiple comorbidities. Medications reviewed and adjusted accordingly: Yes
[2018-01-09] MEDS ORDERED: PANTOPRAZOLE SODIUM 40 MG VIAL IV ONE (16:41)
[2018-01-09 20:02] VITALS: BP 147/65
== END 2018-01-09 20:15 | disposition short-term general hospital (02) ==
LOC: ER 11:10
DX: R07.9 Chest pain, unspecified (principal); I25.10 Atherosclerotic heart disease of native coronary artery without angina pectoris; I11.0 Hypertensive heart disease with heart failure; I50.9 Heart failure, unspecified; E78.5 Hyperlipidemia, unspecified; I25.2 Old myocardial infarction; I45.2 Bifascicular block; E89.0 Postprocedural hypothyroidism; Z86.711 Personal history of pulmonary embolism; Z95.1 Presence of aortocoronary bypass graft; Z95.5 Presence of coronary angioplasty implant and graft; Z91.013 Allergy to seafood; Z82.49 Family history of ischemic heart disease and other diseases of the circulatory system; Z79.82 Long term (current) use of aspirin; Z79.899 Other long term (current) drug therapy; Z79.02 Long term (current) use of antithrombotics/antiplatelets
CPT/HCPCS: 93005; 96376; 99291; 96372; 96374; 96375; 36415; 82553; 82550; 85025; 80053; 84484; 71045; 93010; A9270; J2270; C9113; J1650; S0164

== ENCOUNTER 2019-03-04 19:04 | Observation (INO) | payer MEDICARE, MEDICAID ==
--- NOTE | 2019-03-04 19:17 | EKG REPORT ---
SEVERITY:- ABNORMAL ECG - SINUS RHYTHM RIGHT BUNDLE BRANCH BLOCK : Confirmed by: Josephine Gilliam MD 04-Mar-2019 19:16:56
--- NOTE | 2019-03-04 19:43 | ER Document Report ---
ED Medical Screen (RME) - General Chief Complaint: Chest Pain Stated Complaint: CHEST PAIN Time Seen by Provider: 03/04/19 19:39 Mode of Arrival: Wheelchair Information source: Patient, Relative Notes: Patient presents with chest pain that started 3 or 4 days ago and has been persistent since it started. Patient took nitroglycerin today and it did help his pain but is since returned. Patient complains of shortness of breath. Patient denies any cough nausea or vomiting. Patient takes Plavix daily. hx: 2 quadruple bypass, stent x6, cholecystectomy, CHF, CT, hyperlipidemia, hypertension I have greeted and performed a rapid initial assessment of this patient. A comprehensive ED assessment and evaluation of the patient, analysis of test results and completion of the medical decision making process will be conducted by additional ED providers. TRAVEL OUTSIDE OF THE [place] IN LAST 30 DAYS: No - Related Data Allergies/Adverse Reactions: Fish Containing Products [Fish Product Derivatives] Allergy (Severe, Verified 01/09/18 11:33) Hives Past Medical History - Past Medical History Cardiac Medical History: Reports: Hx Congestive Heart Failure, Hx Coronary Artery Disease, Hx Heart Attack - four, Hx Hypercholesterolemia, Hx Hypertension, Hx Pulmonary Embolism - 2005 Pulmonary Medical History: Reports: Hx Bronchitis, Hx Pneumonia - hx of - 3 years ago Denies: Hx Asthma, Hx COPD Neurological Medical History: Denies: Hx Cerebrovascular Accident, Hx Seizures Endocrine Medical History: Reports: Hx Hyperthyroidism. Denies: Hx Hypothyroidism Renal/ Medical History: Reports: Hx Benign Prostatic Hyperplasia. Denies: Hx End Stage Renal Disease, Hx Kidney Stones, Hx Peritoneal Dialysis GI Medical History: Denies: Hx Crohn's Disease, Hx Gastroesophageal Reflux Disease, Hx Hiatal Hernia, Hx Irritable Bowel, Hx Liver Failure, Hx Pancreatitis, Hx Ulcer Musculoskeltal Medical History: Reports Hx Arthritis - hx 0f, Denies Hx Fibromyalgia, Denies Hx Multiple Sclerosis, Denies Hx Muscular Dystrophy, Denies Hx Systemic Lupus Erythematosus Psychiatric Medical History: Denies: Hx Dementia, Hx Depression Traumatic Medical History: Denies: Hx Fractures Past Surgical History: Reports: Hx Cardiac Catheterization - stents x6, Hx Cardiac Surgery - Angioplasty x4, Hx Cholecystectomy - 2010, Hx Coronary Artery Bypass Graft - 2, Hx Coronary Stent - x5, Hx Inguinal Hernia - x2, Hx Orthopedic Surgery - ankle, multiple, Hx Thyroid Surgery - Thyroidectomy - Immunizations Hx Diphtheria, Pertussis, Tetanus Vaccination: No Physical Exam - Vital signs Vitals: Temp Pulse Resp BP Pulse Ox 97.6 F 59 L 22 H 142/64 H 98 03/04/19 19:24 03/04/19 19:24 03/04/19 19:24 03/04/19 19:24 03/04/19 19:24 - Respiratory Respiratory status: No respiratory distress Breath sounds: Normal - Cardiovascular Rhythm: Regular Heart sounds: S1 appreciated, S2 appreciated Course - Vital Signs Vital signs: Temp Pulse Resp BP Pulse Ox 97.6 F 59 L 22 H 142/64 H 98 03/04/19 19:24 03/04/19 19:24 03/04/19 19:24 03/04/19 19:24 03/04/19 19:24
--- NOTE | 2019-03-04 20:41 | RADIOLOGY REPORT (SQ) ---
EXAM DESCRIPTION: [facility]: XR CHEST 2 VIEWS Views: 2 CLINICAL HISTORY: 78 years Male, cp COMPARISON: 01/09/2018 FINDINGS: Lungs are somewhat hyperinflated, but there is no focal acute infiltrate. Mild biapical scarring is noted. No pneumothorax or pleural effusion. Sternal wires are noted. No mediastinal widening or shift. Colon is interposed between liver and right hemidiaphragm, similar to prior exam. IMPRESSION: 1. No acute cardiothoracic abnormality. 2. Previous sternotomy
[2019-03-04 20:55] LABS: ABSOLUTE BASOPHILS # (AUTO) 0.1 10^3/uL (0.0-0.2); ABSOLUTE EOSINOPHILS # (AUTO) 0.6 10^3/uL (0.0-0.6); ABSOLUTE MONOCYTES (AUTO) 0.7 10^3/uL (0.1-1.4); ABSOLUTE NEUT (AUTO) 5.4 10^3/uL (1.7-8.2); BASOPHILS % (AUTO) 1.1 % (0-2); EOSINOPHILS % (AUTO) 7.2 % (0-6); HEMOGLOBIN 11.7 g/dL (13.5-17.0); LYMPHOCYTES % (AUTO) 13.2 % (13-45); MEAN CORPUSCULAR HEMOGLOBIN 32.2 pg (27.0-33.4); MEAN CORPUSCULAR HGB CONC 35.4 g/dL (32.0-36.0); MEAN CORPUSCULAR VOLUME 91 fl (80-97); MONOCYTES % (AUTO) 9.3 % (3-13); PLATELET COUNT 144 10^3/uL (150-450); RED BLOOD COUNT 3.63 10^6/uL (4.35-5.55); RED CELL DISTRIBUTION WIDTH 13.1 % (11.5-14.0); SEGMENTED NEUTROPHILS % (AUTO) 69.2 % (42-78); TOTAL CELLS COUNTED % (AUTO) 100 %; WHITE BLOOD COUNT 7.8 10^3/uL (4.0-10.5)
[2019-03-04 21:11] LABS: ALANINE AMINOTRANSFERASE 26 U/L (21-72); ALBUMIN 3.3 g/dL (3.5-5.0); ALKALINE PHOSPHATASE 41 U/L (38-126); ANION GAP 8 (5-19); ASPARTATE AMINO TRANSFERASE 20 U/L (17-59); BILIRUBIN,DIRECT 0.3 mg/dL (0.0-0.4); BILIRUBIN,TOTAL 0.5 mg/dL (0.2-1.3); BLOOD UREA NITROGEN 29 mg/dL (7-20); CALCIUM 9.2 mg/dL (8.4-10.2); CARBON DIOXIDE 26 mmol/L (22-30); CHLORIDE 102 mmol/L (98-107); GLUCOSE 101 mg/dL (75-110); POTASSIUM 4.1 mmol/L (3.6-5.0); SODIUM 136.4 mmol/L (137-145); TOTAL PROTEIN 5.6 g/dL (6.3-8.2)
[2019-03-04 21:22] LABS: TROPONIN I 0.013 ng/mL
--- NOTE | 2019-03-04 21:50 | ER Document Report ---
ED General - General Chief Complaint: Chest Pain Stated Complaint: CHEST PAIN Time Seen by Provider: 03/04/19 19:39 Mode of Arrival: Wheelchair Notes: Patient is an 78-year-old male with a past medical history of coronary artery disease status post CABG and multiple stenting, last cardiac catheterization in December 2017 with multiple lesions that were unable to be intervened upon who presents with 3 days of intermittent chest discomfort and shortness of breath worsened by exertion. Describes the chest discomfort as being over the right side of his chest and is a pressure, throbbing type sensation. Symptoms are a lleviated by rest. Patient denies long-standing history of similar symptoms but states that each time that he has something with his heart his pain is always like this. Has not seen his field care advocate or primary doctor regarding today's concerns. Denies any pain at the time of my evaluation. Denies associated nausea, vomiting or diaphoresis. Symptoms are regarded as severe when present, currently absent. TRAVEL OUTSIDE OF THE [place] IN LAST 30 DAYS: No - Related Data Allergies/Adverse Reactions: Fish Containing Products [Fish Product Derivatives] Allergy (Severe, Verified 01/09/18 11:33) Hives Past Medical History - General Information source: Patient, Relative - Social History Smoking Status: Never Smoker Chew tobacco use (# tins/day): No Frequency of alcohol use: None Drug Abuse: None Lives with: Family Family History: CAD, DM Patient has suicidal ideation: No Patient has homicidal ideation: No - Past Medical History Cardiac Medical History: Reports: Hx Congestive Heart Failure, Hx Coronary A rtery Disease, Hx Heart Attack - four, Hx Hypercholesterolemia, Hx Hypertension, Hx Pulmonary Embolism - 2005 Pulmonary Medical History: Reports: Hx Bronchitis, Hx Pneumonia - hx of - 3 years ago Denies: Hx Asthma, Hx COPD Neurological Medical History: Denies: Hx Cerebrovascular Accident, Hx Seizures Endocrine Medical History: Reports: Hx Hyperthyroidism. Denies: Hx Hypothyroidism Renal/ Medical History: Reports: Hx Benign Prostatic Hyperplasia. Denies: Hx End Stage Renal Disease, Hx Kidney Stones, Hx Peritoneal Dialysis GI Medical History: Denies: Hx Crohn's Disease, Hx Gastroesophageal Reflux Disease, Hx Hiatal Hernia, Hx Irritable Bowel, Hx Liver Failure, Hx Pancreatitis, Hx Ulcer Musculoskeletal Medical History: Reports Hx Arthritis - hx 0f, Denies Hx Fibromyalgia, Denies Hx Multiple Sclerosis, Denies Hx Muscular Dystrophy, Denies Hx Systemic Lupus Erythematosus Psychiatric Medical History: Denies: Hx Dementia, Hx Depression Traumatic Medical History: Denies: Hx Fractures Past Surgical History: Reports: Hx Cardiac Catheterization - stents x6, Hx Ca rdiac Surgery - Angioplasty x4, Hx Cholecystectomy - 2010, Hx Coronary Artery Bypass Graft - 2, Hx Coronary Stent - x5, Hx Inguinal Hernia - x2, Hx Orthopedic Surgery - ankle, multiple, Hx Thyroid Surgery - Thyroidectomy - Immunizations Hx Diphtheria, Pertussis, Tetanus Vaccination: No Hx Pneumococcal Vaccination: 02/12/07 Review of Systems - Review of Systems Notes: Constitutional: Negative for fever. HENT: Negative for sore throat. Eyes: Negative for visual changes. Cardiovascular: Positive for chest pain. Respiratory: Positive for shortness of breath. Gastrointestinal: Negative for abdominal pain, vomiting or diarrhea. Genitourinary: Negative for dysuria. Musculoskeletal: Negative for back pain. Skin: Negative for rash. Neurological: Negative for headaches, weakness or numbness. 10 point ROS negative except as marked above and in HPI. Physical Exam - Vital signs Vitals: Temp Pulse Resp BP Pulse Ox 97.6 F 59 L 22 H 142/64 H 98 03/04/19 19:24 03/04/19 19:24 03/04/19 19:24 03/04/19 19:24 03/04/19 19:24 Interpretation: Hypertensive Notes: PHYSICAL EXAMINATION: GENERAL: Well-appearing, well-nourished and in no acute distress. HEAD: Atraumatic, normocephalic. EYES: Pupils equal round and reactive to light, extraocular movements intact, sclera anicteric, conjunctiva are normal. ENT: nares patent, oropharynx clear without exudates. Moist mucous membranes. NECK: Normal range of motion, supple without lymphadenopathy LUNGS: Breath sounds clear to auscultation bilaterally and equal. No wheezes rales or rhonchi. HEART: Regular rate and rhythm without murmurs ABDOMEN: Soft, nontender, normoactive bowel sounds. No guarding, no rebound. No masses appreciated. EXTREMITIES: Normal range of motion, no pitting or edema. No cyanosis. NEUROLOGICAL: No focal neurological deficits. Moves all extremities spontaneously and on command. PSYCH: Normal mood, normal affect. SKIN: Warm, Dry, normal turgor, no rashes or lesions noted. Course - Re-evaluation Re-evalutation: 03/04/19 21:49 Patient presents with exertional chest pain and shortness of breath. Has an extensive history of coronary artery disease as documented. Patient is currently chest pain-free although his characterization of symptoms is certainly worrisome from a cardiac standpoint. However the patient is 78 years of age, has already e been told in the past that he is not a candidate for additional bypass, and his last cardiac catheterization in December 2017 revealed multiple vessels that were not able to be intervened upon. His EKG is unchanged from previous, he does not have evidence of troponin elevation, and I believe maximal medical management is most likely appropriate option for this patient. He and his daughter at the bedside are in agreement stating that they have already stated they do not want any further invasive procedures of therapy such as cardiac catheterization. I discussed with Dr. Mcfadden who is accepted the patient for observation for serial troponin markers, possible cardiology consultation for additional medical management options. - Vital Signs Vital signs: Temp Pulse Resp BP Pulse Ox 97.7 F 64 16 140/62 H 97 03/05/19 00:35 03/05/19 02:00 03/05/19 00:35 03/05/19 00:35 03/05/19 00:35 - Laboratory Result Diagrams: 03/04/19 20:10 03/04/19 20:10 Laboratory results interpreted by me: 03/04/19 03/04/19 03/04/19 20:10 20:10 20:10 RBC 3.63 L Hgb 11.7 L Hct 33.0 L Plt Count 144 L Eosinophils % 7.2 H Sodium 136.4 L BUN 29 H Creatinine 1.93 H Est GFR ( Amer) 41 L Est GFR (Non-Af Amer) 34 L NT-Pro-B Natriuret Pep 2510 H Total Protein 5.6 L Albumin 3.3 L TSH 03/04/19 20:10 RBC Hgb Hct Plt Count Eosinophils % Sodium BUN Creatinine Est GFR ( Amer) Est GFR (Non-Af Amer) NT-Pro-B Natriuret Pep Total Protein Albumin TSH 7.00 H - Diagnostic Test Radiology reviewed: Image reviewed, Reports reviewed Radiology results interpreted by me: 03/04/19 21:50 Sinus rhythm, rate 62, no ST elevations or depressions. Right bundle branch block. Unchanged from previous EKG. Discharge - Discharge Clinical Impression: S/P CABG x 2, Exertional angina Chest pain Qualifiers: Chest pain type: unspecified Qualified Code(s): R07.9 - Chest pain, unspecified CAD (coronary artery disease) Qualifiers: Coronary Disease-Associated Artery/Lesion type: unspecified vessel or lesion type [place] vs. transplanted heart: [place] heart Associated angina: angina presence unspecified Qualified Code(s): I25.10 - Atherosclerotic heart disease of [place] coronary artery without angina pectoris Condition: Fair Disposition: ADMITTED OBSERVATION Admitting Provider: Bogdan (Hospitalist) Unit Admitted: Telemetry
[2019-03-04] MEDS ORDERED: NITROGLYCERIN 0.4 MG/TAB 25 TAB/BOTTLE SL PRN (21:53)
[2019-03-04] MEDS ORDERED: ACETAMINOPHEN 325 MG TABLET PO PRN (21:53)
[2019-03-04 23:14] LABS: CHOLESTEROL 136.88 mg/dL (0-200); TRIGLYCERIDES 115 mg/dL (<150)
[2019-03-04 23:24] LABS: DIRECT LDL 81 mg/dL (<100)
[2019-03-04] MEDS ORDERED: ASPIRIN 81 MG TABLET, CHEWABLE PO ONE (23:30)
[2019-03-05] MEDS ORDERED: AMLODIPINE BESYLATE 5 MG TABLET PO ONE (01:15)
--- NOTE | 2019-03-05 05:15 | PDOC H&P ---
History of Present Illness Admission Date/PCP: 03/04/19 22:33 ADAMA REYNOSO MD Patient complains of: Shortness of breath chest pain History of Present Illness: MOLLY GRAY is a 78 year old male with a past medical history of hypertension, pulmonary embolism, anxiety, depression, chronic kidney disease, coronary artery disease status post coronary artery bypass graft and multiple stents last catheterization December 2017 with multiple lesions unamenable to intervention. His cardiology team has told him he is no longer a candidate for interventions. Patient presents to the emergency room with 3 days of exertional shortness of breath and chest pain described as fullness with pressure and throbbing. It is nonradiating is 2 out of 5 intensity it is associated with shortness of breath without palpitations nausea or vomiting he did feel as though he was going to pass out. Symptoms resolved with rest. He has unaware of home medications but denies recent change of medications. For some reason he is currently comfortable but quite distressed repeating himself 6 or 7 times stating "I am not crazy but I know there is a problem with my heart. I just cannot express myself." His normal exercise capacity is described as ambulating 20 feet prior to shortness of breath and is now 10 feet. Is currently chest pain-free his work-up in the emergency room was unremarkable. Past Medical History Cardiac Medical History: Reports: Congestive Heart Failure, Coronary Artery Disease, Myocardial Infarction - four, Hyperlipidema, Hypertension, Pulmonary Embolism - 2006 Pulmonary Medical History: Reports: Bronchitis, Pneumonia - hx of - 3 years ago Denies: Asthma, Chronic Obstructive Pulmonary Disease (COPD) Neurological Medical History: Denies: Seizures Endocrine Medical History: Reports: Hyperthyroidism Denies: Hypothyroidism Renal/ Medical History: Denies: End Stage Renal Disease GI Medical History: Denies: Crohn's Disease, Gastroesophageal Reflux Disease, Hiatal Hernia Musculoskeltal Medical History: Reports: Arthritis - hx 0f Denies: Fibromyalgia Psychiatric Medical History: Denies: Dementia, Depression Hematology: Denies: Anemia Past Surgical History Past Surgical History: Reports: Cardiac Catheterization - stents x6, Cholecystectomy - 2010, Coronary Artery Bypass Graft - 2, Coronary Stent - x5, Orthopedic Surgery - ankle, multiple Social History Information Source: Patient, [facility] Records Lives with: Family Smoking Status: Never Smoker Frequency of Alcohol Use: None Hx Recreational Drug Use: No Drugs: None Hx Prescription Drug Abuse: No - Advance Directive Resuscitation Status: Full Code Family History Family History: CAD, DM Parental Family History Reviewed: Yes Children Family History Reviewed: Yes Sibling(s) Family History Reviewed.: Yes Medication/Allergy Home Medications: Alfuzosin HCl [Alfuzosin HCl ER] 10 mg PO DAILY 02/11/17 Atorvastatin Calcium [Lipitor 20 mg Tablet] 20 mg PO DAILY 02/11/17 Clopidogrel Bisulfate [Plavix 75 mg Tablet] 75 mg PO DAILY 02/11/17 Esomeprazole Magnesium [Nexium] 40 mg PO DAILY 02/11/17 Furosemide [Lasix 20 mg Tablet] 20 mg PO BID 02/11/17 Gabapentin [Neurontin 300 mg Capsule] 300 mg PO DAILY 02/11/17 Isosorbide Mononitrate [Imdur 60 mg Tablet.er] 60 mg PO DAILY 02/11/17 Ranolazine [Ranexa] 1,000 mg PO Q12 02/11/17 Trazodone HCl [Desyrel 50 mg Tablet] 50 mg PO QHS 02/11/17 Dutasteride 0.5 mg PO DAILY 04/14/17 Spironolactone 25 mg PO BID 04/14/17 Fluoxetine HCl [Prozac 20 mg Capsule] 20 mg PO DAILY 03/04/19 Levothyroxine Sodium [Synthroid 0.112 mg Tablet] 0.112 mg PO Q6AM 03/04/19 Nitroglycerin [Nitrostat 0.4 mg (1/150 Gr) Tabs 25/Bottle] 1 tab SL Q5MP PRN 03/04/19 Allergies/Adverse Reactions: Fish Containing Products [Fish Product Derivatives] Allergy (Severe, Verified 01/09/18 11:33) Hives Review of Systems Constitutional: ABSENT: chills, fever(s), headache(s), weight gain, weight loss Eyes: ABSENT: visual disturbances Ears: ABSENT: hearing changes Cardiovascular: ABSENT: chest pain, dyspnea on exertion, edema, orthropnea, palpitations Respiratory: ABSENT: cough, hemoptysis Gastrointestinal: ABSENT: abdominal pain, constipation, diarrhea, hematemesis, hematochezia, nausea, vomiting Genitourinary: ABSENT: dysuria, hematuria Musculoskeletal: ABSENT: joint swelling Integumentary: ABSENT: rash, wounds Neurological: ABSENT: abnormal gait, abnormal speech, confusion, dizziness, focal weakness, syncope Psychiatric: ABSENT: anxiety, depression, homidical ideation, suicidal ideation Endocrine: ABSENT: cold intolerance, heat intolerance, polydipsia, polyuria Hematologic/Lymphatic: ABSENT: easy bleeding, easy bruising Physical Exam Vital Signs: Temp Pulse Resp BP Pulse Ox 97.7 F 64 16 140/62 H 97 03/05/19 00:35 03/05/19 02:00 03/05/19 00:35 03/05/19 00:35 03/05/19 00:35 Intake & Output 03/03/19 03/04/19 03/05/19 11:59 11:59 11:59 Weight 87 kg General appearance: PRESENT: no acute distress, well-developed, well-nourished Head exam: PRESENT: atraumatic, normocephalic Eye exam: PRESENT: conjunctiva pink, EOMI, PERRLA. ABSENT: scleral icterus Ear exam: PRESENT: normal external ear exam Mouth exam: PRESENT: moist, tongue midline Neck exam: ABSENT: carotid bruit, JVD, lymphadenopathy, thyromegaly Respiratory exam: PRESENT: clear to auscultation sania, crackles, tachypnea. ABSENT: rales, rhonchi, wheezes Cardiovascular exam: PRESENT: RRR. ABSENT: diastolic murmur, rubs, systolic murmur Pulses: PRESENT: normal dorsalis pedis pul Vascular exam: PRESENT: normal capillary refill GI/Abdominal exam: PRESENT: normal bowel sounds, soft. ABSENT: distended, guarding, mass, organolmegaly, rebound, tenderness Rectal exam: PRESENT: deferred Extremities exam: PRESENT: full ROM. ABSENT: calf tenderness, clubbing, pedal edema Musculoskeletal exam: PRESENT: other - Global muscular atrophy Neurological exam: PRESENT: alert, awake, oriented to person, oriented to place, oriented to time, oriented to situation, CN II-XII grossly intact. ABSENT: motor sensory deficit Psychiatric exam: PRESENT: anxious, unusual affect. ABSENT: homicidal ideation, suicidal ideation Skin exam: PRESENT: dry, intact, warm. ABSENT: cyanosis, rash Results Laboratory Results: 03/04/19 20:10 03/04/19 20:10 03/04/19 03/04/19 03/04/19 20:06 20:06 20:10 WBC Cancelled 7.8 RBC Cancelled 3.63 L Hgb Cancelled 11.7 L Hct Cancelled 33.0 L MCV Cancelled 91 MCH Cancelled 32.2 MCHC Cancelled 35.4 RDW Cancelled 13.1 Plt Count Cancelled 144 L Seg Neutrophils % Cancelled 69.2 Lymphocytes % Cancelled 13.2 Monocytes % Cancelled 9.3 Eosinophils % Cancelled 7.2 H Basophils % Cancelled 1.1 Absolute Neutrophils Cancelled 5.4 Absolute Lymphocytes Cancelled 1.0 Absolute Monocytes Cancelled 0.7 Absolute Eosinophils Cancelled 0.6 Absolute Basophils Cancelled 0.1 Sodium Cancelled Potassium Cancelled Chloride Cancelled Carbon Dioxide Cancelled Anion Gap Cancelled BUN Cancelled Creatinine Cancelled Est GFR ( Amer) Cancelled Est GFR (Non-Af Amer) Cancelled Glucose Cancelled Calcium Cancelled Total Bilirubin Cancelled AST Cancelled ALT Cancelled Alkaline Phosphatase Cancelled Total Protein Cancelled Albumin Cancelled Triglycerides Cholesterol LDL Cholesterol Direct VLDL Cholesterol HDL Cholesterol TSH Free T4 03/04/19 03/04/19 03/04/19 20:10 20:10 20:10 WBC RBC Hgb Hct MCV MCH MCHC RDW Plt Count Seg Neutrophils % Lymphocytes % Monocytes % Eosinophils % Basophils % Absolute Neutrophils Absolute Lymphocytes Absolute Monocytes Absolute Eosinophils Absolute Basophils Sodium 136.4 L Potassium 4.1 Chloride 102 Carbon Dioxide 26 Anion Gap 8 BUN 29 H Creatinine 1.93 H Est GFR ( Amer) 41 L Est GFR (Non-Af Amer) 34 L Glucose 101 Calcium 9.2 Total Bilirubin 0.5 AST 20 ALT 26 Alkaline Phosphatase 41 Total Protein 5.6 L Albumin 3.3 L Triglycerides 115 Cholesterol 136.88 LDL Cholesterol Direct 81 VLDL Cholesterol 23.0 HDL Cholesterol 46 TSH 7.00 H Free T4 03/04/19 20:10 WBC RBC Hgb Hct MCV MCH MCHC RDW Plt Count Seg Neutrophils % Lymphocytes % Monocytes % Eosinophils % Basophils % Absolute Neutrophils Absolute Lymphocytes Absolute Monocytes Absolute Eosinophils Absolute Basophils Sodium Potassium Chloride Carbon Dioxide Anion Gap BUN Creatinine Est GFR ( Amer) Est GFR (Non-Af Amer) Glucose Calcium Total Bilirubin AST ALT Alkaline Phosphatase Total Protein Albumin Triglycerides Cholesterol LDL Cholesterol Direct VLDL Cholesterol HDL Cholesterol TSH Free T4 1.11 03/04/19 03/04/19 03/05/19 20:06 20:10 02:16 Troponin I Cancelled 0.013 0.020 NT-Pro-B Natriuret Pep Cancelled 2510 H Impressions: Chest X-Ray 03/04/19 19:39 IMPRESSION: 1. No acute cardiothoracic abnormality. 2. Previous sternotomy Assessment and Plan - Diagnosis (1) Chest pain Qualifiers: Chest pain type: unspecified Qualified Code(s): R07.9 - Chest pain, unspecified Is this a current diagnosis for this admission?: Yes Plan: Follow-up serial cardiac enzymes, lipid profile. Cardiolite stress test. (2) CAD (coronary artery disease) Qualifiers: Coronary Disease-Associated Artery/Lesion type: unspecified vessel or lesion type [place] vs. transplanted heart: [place] heart Associated angina: angina presence unspecified Qualified Code(s): I25.10 - Atherosclerotic heart disease of [place] coronary artery without angina pectoris Is this a current diagnosis for this admission?: Yes Plan: Patient understands he is no longer a surgical candidate. Optimize medical management (3) Exertional angina Is this a current diagnosis for this admission?: Yes Plan: Eval for acute coronary syndrome, cardiac rehab (4) Hypertension Qualifiers: Hypertension type: essential hypertension Qualified Code(s): I10 - Essential (primary) hypertension Is this a current diagnosis for this admission?: Yes Plan: Trial Norvasc in addition to outpatient regiment (5) Anxiety Is this a current diagnosis for this admission?: Yes Plan: Follow-up TSH - Time Time Spent with patient: 25-34 minutes
[2019-03-05] MEDS: PANTOPRAZOLE SODIUM 40 MG TABLET.DR PO SCH (07:02)
[2019-03-05] MEDS ORDERED: (PENDING PHARMACY ID) (Ranolazine [Ranexa] 1,000 MG) PO SCH (10:00)
[2019-03-05] MEDS: ATORVASTATIN CALCIUM 20 MG TABLET PO SCH (10:55)
[2019-03-05] MEDS: DOCUSATE SODIUM 100 MG CAPSULE PO SCH (10:55)
[2019-03-05] MEDS: MAGNESIUM OXIDE 400 MG TABLET PO SCH ×2 (10:55→17:50)
[2019-03-05] MEDS: ISOSORBIDE MONONITRATE 60 MG TAB.ER.24H PO SCH (10:55)
[2019-03-05] MEDS: GABAPENTIN 300 MG CAPSULE PO SCH (10:55)
[2019-03-05] MEDS: FUROSEMIDE 20 MG TABLET PO SCH ×2 (10:56→17:50)
[2019-03-05] MEDS: ASPIRIN 81 MG TABLET, CHEWABLE PO SCH (10:56)
[2019-03-05] MEDS: CLOPIDOGREL BISULFATE 75 MG TABLET PO SCH (10:56)
[2019-03-05] MEDS: RANOLAZINE 500 MG TAB.SR.12H PO SCH ×2 (10:57→21:25)
[2019-03-05] MEDS: SPIRONOLACTONE 25 MG TABLET PO SCH ×2 (10:57→17:50)
[2019-03-05] MEDS: FLUOXETINE HCL 20 MG CAPSULE PO SCH (10:58)
[2019-03-05] MEDS: DUTASTERIDE 0.5 MG CAPSULE PO SCH (10:58)
[2019-03-05] MEDS ORDERED: FUROSEMIDE INJ/PF 20 MG/2 ML SDV IV ONE (13:08)
--- NOTE | 2019-03-05 13:14 | PDOC PROGRESS REPORT ---
Subjective Progress Note for:: 03/05/19 Subjective:: MOLLY GRAY is a 78 year old male with a past medical history of hypertension, pulmonary embolism, anxiety, depression, chronic kidney disease, coronary artery disease status post coronary artery bypass graft and multiple stents last catheterization December 2017 with multiple lesions unamenable to intervention admitted 03/04/2019 for chest pain and exertional angina. Patient was seen on morning rounds. He was found resting in bed comfortably on room air. He reports that he is feeling well and asks to be discharged home. He does endorse continued right sided chest discomfort; difficult to describe, but reports that pain predictably occurs while ambulatory and causes associated dyspnea. He denies fever, chills, dizziness, headaches, palpitations, dyspnea at rest, orthopnea, abdominal pain, nausea vomiting and diarrhea. He has no other questions or concerns at this time. Nursing called report the patient did have another episode of chest discomfort with shortness of breath while inflating proximately 40 feet this morning. Therefore the patient will remain in house and cardiology consultation is requested. Reason For Visit: CHEST PAIN Physical Exam Vital Signs: Temp Pulse Resp BP Pulse Ox 97.4 F 61 18 134/46 H 97 03/05/19 11:18 03/05/19 11:18 03/05/19 11:18 03/05/19 11:18 03/05/19 11:18 Intake & Output 03/04/19 03/05/19 03/06/19 06:59 06:59 06:59 Weight 87 kg General appearance: PRESENT: no acute distress, well-developed, well-nourished Head exam: PRESENT: atraumatic, normocephalic Eye exam: PRESENT: conjunctiva pink, EOMI, PERRLA. ABSENT: scleral icterus Ear exam: PRESENT: normal external ear exam Mouth exam: PRESENT: moist, tongue midline Neck exam: ABSENT: carotid bruit, JVD, lymphadenopathy, thyromegaly Respiratory exam: PRESENT: clear to auscultation sania. ABSENT: rales, rhonchi, wheezes Cardiovascular exam: PRESENT: RRR. ABSENT: diastolic murmur, rubs, systolic murmur Pulses: PRESENT: normal dorsalis pedis pul Vascular exam: PRESENT: normal capillary refill GI/Abdominal exam: PRESENT: normal bowel sounds, soft. ABSENT: distended, guarding, mass, organolmegaly, rebound, tenderness Rectal exam: PRESENT: deferred Extremities exam: PRESENT: full ROM. ABSENT: calf tenderness, clubbing, pedal edema Neurological exam: PRESENT: alert, awake, oriented to person, oriented to place, oriented to time, oriented to situation, CN II-XII grossly intact, other - Forgetful and repetitive. ABSENT: motor sensory deficit Psychiatric exam: PRESENT: anxious, appropriate affect. ABSENT: homicidal ideation, suicidal ideation Skin exam: PRESENT: dry, intact, warm. ABSENT: cyanosis, rash Results Laboratory Results: 03/04/19 20:10 03/04/19 20:10 03/04/19 03/04/19 03/04/19 20:06 20:06 20:10 WBC Cancelled 7.8 RBC Cancelled 3.63 L Hgb Cancelled 11.7 L Hct Cancelled 33.0 L MCV Cancelled 91 MCH Cancelled 32.2 MCHC Cancelled 35.4 RDW Cancelled 13.1 Plt Count Cancelled 144 L Seg Neutrophils % Cancelled 69.2 Lymphocytes % Cancelled 13.2 Monocytes % Cancelled 9.3 Eosinophils % Cancelled 7.2 H Basophils % Cancelled 1.1 Absolute Neutrophils Cancelled 5.4 Absolute Lymphocytes Cancelled 1.0 Absolute Monocytes Cancelled 0.7 Absolute Eosinophils Cancelled 0.6 Absolute Basophils Cancelled 0.1 Sodium Cancelled Potassium Cancelled Chloride Cancelled Carbon Dioxide Cancelled Anion Gap Cancelled BUN Cancelled Creatinine Cancelled Est GFR ( Amer) Cancelled Est GFR (Non-Af Amer) Cancelled Glucose Cancelled Calcium Cancelled Total Bilirubin Cancelled AST Cancelled ALT Cancelled Alkaline Phosphatase Cancelled Total Protein Cancelled Albumin Cancelled Triglycerides Cholesterol LDL Cholesterol Direct VLDL Cholesterol HDL Cholesterol TSH Free T4 03/04/19 03/04/19 03/04/19 20:10 20:10 20:10 WBC RBC Hgb Hct MCV MCH MCHC RDW Plt Count Seg Neutrophils % Lymphocytes % Monocytes % Eosinophils % Basophils % Absolute Neutrophils Absolute Lymphocytes Absolute Monocytes Absolute Eosinophils Absolute Basophils Sodium 136.4 L Potassium 4.1 Chloride 102 Carbon Dioxide 26 Anion Gap 8 BUN 29 H Creatinine 1.93 H Est GFR ( Amer) 41 L Est GFR (Non-Af Amer) 34 L Glucose 101 Calcium 9.2 Total Bilirubin 0.5 AST 20 ALT 26 Alkaline Phosphatase 41 Total Protein 5.6 L Albumin 3.3 L Triglycerides 115 Cholesterol 136.88 LDL Cholesterol Direct 81 VLDL Cholesterol 23.0 HDL Cholesterol 46 TSH 7.00 H Free T4 03/04/19 20:10 WBC RBC Hgb Hct MCV MCH MCHC RDW Plt Count Seg Neutrophils % Lymphocytes % Monocytes % Eosinophils % Basophils % Absolute Neutrophils Absolute Lymphocytes Absolute Monocytes Absolute Eosinophils Absolute Basophils Sodium Potassium Chloride Carbon Dioxide Anion Gap BUN Creatinine Est GFR ( Amer) Est GFR (Non-Af Amer) Glucose Calcium Total Bilirubin AST ALT Alkaline Phosphatase Total Protein Albumin Triglycerides Cholesterol LDL Cholesterol Direct VLDL Cholesterol HDL Cholesterol TSH Free T4 1.11 03/04/19 03/04/19 03/05/19 20:06 20:10 02:16 Troponin I Cancelled 0.013 0.020 NT-Pro-B Natriuret Pep Cancelled 2510 H 03/05/19 08:37 Troponin I 0.013 NT-Pro-B Natriuret Pep Impressions: Chest X-Ray 03/04/19 19:39 IMPRESSION: 1. No acute cardiothoracic abnormality. 2. Previous sternotomy Assessment and Plan - Diagnosis (1) Chest pain Qualifiers: Chest pain type: unspecified Qualified Code(s): R07.9 - Chest pain, unspecified Is this a current diagnosis for this admission?: Yes Plan: Patient is admitted with exertional angina. Reports long-standing history of the same, though this is increased from his baseline. He reports that generally he is able to "wander about the house" without difficulty but now is unable to ambulate more than 20 to 30 feet before he experiences chest discomfort and dyspnea. Troponins are negative x3. proBNP is elevated 2500. Lipid panel is normal. TSH is elevated though free T4 is appropriate. The patient is established with Dr. Gilliam; therefore have consulted cardiology services. Spoke with Dr. Colby today; requests barium swallow study and will see the patient today. Will defer cardolite stress testing to Dr. Colby. Continue home medication regiment of Plavix, atorvastatin, isosorbide, Ranexa, spironolactone, and furosemide. 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 (2) Exertional angina Is this a current diagnosis for this admission?: Yes Plan: As above. (3) CAD (coronary artery disease) Qualifiers: Coronary Disease-Associated Artery/Lesion type: unspecified vessel or lesion type [place] vs. transplanted heart: [place] heart Associated angina: angina presence unspecified Qualified Code(s): I25.10 - Atherosclerotic heart disease of [place] coronary artery without angina pectoris Is this a current diagnosis for this admission?: Yes Plan: Patient understands he is no longer a surgical candidate. Optimize medical management Evaluation and management as above. (4) Hypertension Qualifiers: Hypertension type: essential hypertension Qualified Code(s): I10 - Essential (primary) hypertension Is this a current diagnosis for this admission?: Yes Plan: Antihypertensives as above. (5) Anxiety Is this a current diagnosis for this admission?: Yes Plan: Reassurance provided. Continue home dose Prozac and trazodone. (6) Hypothyroidism Is this a current diagnosis for this admission?: Yes Plan: TSH elevated, free T4 is appropriate. continue home dose levothyroxine. (7) GERD (gastroesophageal reflux disease) Is this a current diagnosis for this admission?: Yes Plan: Continue PPI. Barium swallow study requested. - Time Time Spent with patient: 25-34 minutes Medications reviewed and adjusted accordingly: Yes Anticipated discharge: Home Within: within 24 hours
--- NOTE | 2019-03-05 16:26 | RADIOLOGY REPORT (SQ) ---
EXAM DESCRIPTION: NM LUNG VENT/PERF SCAN COMPLETED DATE/TIME: 03/05/2019 2:59 pm REASON FOR STUDY: SOB E03.9 HYPOTHYROIDISM, UNSPECIFIED D64.9 ANEMIA, UNSPECIFIED COMPARISON: 10/12/2016 and 03/04/2019 RADIONUCLIDE AND DOSE: 5.19 millicuries TC-99m MAA Intravenous 31.5 millicuries TC-99m DTPA Inhaled aerosol TECHNIQUE: Eight views of the lungs acquired post ventilation of DTPA aerosol. Eight matching views of the lungs acquired following injection of MAA. LIMITATIONS: None. FINDINGS: VENTILATION: Symmetric and homogeneous distribution of DTPA aerosol during ventilatory pha se. No significant areas of photopenia. PERFUSION: Perfusion images with normal homogenous activity and no wedge-shaped or segmental defects. No ventilation-perfusion mismatches. OTHER: No other significant finding. IMPRESSION: NORMAL VENTILATION-PERFUSION LUNG SCAN. NEGATIVE FOR PULMONARY EMBOLI. TECHNICAL DOCUMENTATION: JOB ID: [id number] [employer]- All Rights Reserved Reading location - IP/workstation name: [email or web address]
[2019-03-05] MEDS: TRAZODONE HCL 50 MG TABLET PO SCH (21:25)
[2019-03-06 05:01] LABS: HEMATOCRIT 31.9 % (37.9-51.0); HEMOGLOBIN 11.3 g/dL (13.5-17.0); MEAN CORPUSCULAR HEMOGLOBIN 32.5 pg (27.0-33.4); MEAN CORPUSCULAR HGB CONC 35.5 g/dL (32.0-36.0); MEAN CORPUSCULAR VOLUME 92 fl (80-97); PLATELET COUNT 135 10^3/uL (150-450); RED BLOOD COUNT 3.48 10^6/uL (4.35-5.55); RED CELL DISTRIBUTION WIDTH 13.1 % (11.5-14.0); WHITE BLOOD COUNT 7.5 10^3/uL (4.0-10.5)
[2019-03-06 05:22] LABS: ANION GAP 5 (5-19); BLOOD UREA NITROGEN 27 mg/dL (7-20); CALCIUM 9.2 mg/dL (8.4-10.2); CARBON DIOXIDE 29 mmol/L (22-30); CHLORIDE 104 mmol/L (98-107); GLUCOSE 93 mg/dL (75-110); POTASSIUM 4.1 mmol/L (3.6-5.0); SODIUM 138.1 mmol/L (137-145)
[2019-03-06] MEDS ORDERED: LEVOTHYROXINE SODIUM 0.112 MG TABLET PO SCH (06:00)
[2019-03-06] MEDS: LEVOTHYROXINE SODIUM 0.15 MG TABLET PO SCH (06:05)
[2019-03-06] MEDS: PANTOPRAZOLE SODIUM 40 MG TABLET.DR PO SCH (06:05)
[2019-03-06] MEDS: ASPIRIN 81 MG TABLET, CHEWABLE PO SCH (10:25)
[2019-03-06] MEDS: SPIRONOLACTONE 25 MG TABLET PO SCH ×2 (10:26→17:04)
[2019-03-06] MEDS: CLOPIDOGREL BISULFATE 75 MG TABLET PO SCH (10:26)
[2019-03-06] MEDS: ATORVASTATIN CALCIUM 20 MG TABLET PO SCH (10:26)
[2019-03-06] MEDS: FLUOXETINE HCL 20 MG CAPSULE PO SCH (10:26)
[2019-03-06] MEDS: DOCUSATE SODIUM 100 MG CAPSULE PO SCH (10:26)
[2019-03-06] MEDS: GABAPENTIN 300 MG CAPSULE PO SCH (10:26)
[2019-03-06] MEDS: ISOSORBIDE MONONITRATE 60 MG TAB.ER.24H PO SCH (10:26)
[2019-03-06] MEDS: FUROSEMIDE 20 MG TABLET PO SCH ×2 (10:27→17:05)
[2019-03-06] MEDS: MAGNESIUM OXIDE 400 MG TABLET PO SCH ×2 (10:27→17:05)
[2019-03-06] MEDS: AMLODIPINE BESYLATE 2.5 MG TABLET PO SCH ×2 (10:28→22:04)
[2019-03-06] MEDS: RANOLAZINE 500 MG TAB.SR.12H PO SCH ×2 (10:28→22:04)
[2019-03-06] MEDS: DUTASTERIDE 0.5 MG CAPSULE PO SCH (10:29)
--- NOTE | 2019-03-06 15:47 | PDOC PROGRESS REPORT ---
Subjective Progress Note for:: 03/06/19 Subjective:: MLOLY GRAY is a 78 year old male with a past medical history of hypertension, pulmonary embolism, anxiety, depression, chronic kidney disease, coronary artery disease status post coronary artery bypass graft and multiple stents last catheterization December 2017 with multiple lesions unamenable to intervention admitted 03/04/2019 for chest pain and exertional angina. Patient was seen on morning rounds. He was found resting in bed comfortably on room air. He reports that he is feeling well but then discloses that he continues to have right sided chest discomfort. Patient reports that the pain is nonradiating, described as "tight" or "squeezing" and "takes my breath away." He reports that the pain is constant while at rest and increases significantly with minimal activity. He denies fever, chills, dizziness, headaches, palpitations, dyspnea at rest, orthopnea, abdominal pain, nausea vomiting and diarrhea. He has no other questions or concerns at this time. No concerns per nursing. Reason For Visit: CHEST PAIN Physical Exam Vital Signs: Temp Pulse Resp BP Pulse Ox 97.7 F 61 20 144/68 H 96 03/06/19 12:00 03/06/19 12:00 03/06/19 12:00 03/06/19 12:00 03/06/19 12:00 Intake & Output 03/05/19 03/06/19 03/07/19 06:59 06:59 06:59 Intake Total 462 Output Total 1575 Balance -1113 Weight 87 kg 83.2 kg General appearance: PRESENT: no acute distress, hard of hearing, well-developed, well-nourished Head exam: PRESENT: atraumatic, normocephalic Eye exam: PRESENT: conjunctiva pink, EOMI, PERRLA. ABSENT: scleral icterus Ear exam: PRESENT: normal external ear exam Mouth exam: PRESENT: moist, tongue midline Teeth exam: PRESENT: poor dentation Neck exam: ABSENT: carotid bruit, JVD, lymphadenopathy, thyromegaly Respiratory exam: PRESENT: clear to auscultation sania, symmetrical, unlabored. ABSENT: rales, rhonchi, wheezes Cardiovascular exam: PRESENT: RRR, +S1, +S2. ABSENT: diastolic murmur, rubs, systolic murmur Pulses: PRESENT: normal dorsalis pedis pul Vascular exam: PRESENT: normal capillary refill GI/Abdominal exam: PRESENT: normal bowel sounds, soft. ABSENT: distended, guarding, mass, organolmegaly, rebound, tenderness Rectal exam: PRESENT: deferred Extremities exam: PRESENT: full ROM. ABSENT: calf tenderness, clubbing, pedal edema Neurological exam: PRESENT: alert, awake, oriented to person, oriented to place, oriented to time, oriented to situation, CN II-XII grossly intact, other - Slightly repetitive. ABSENT: motor sensory deficit Psychiatric exam: PRESENT: appropriate affect, normal mood. ABSENT: homicidal ideation, suicidal ideation Skin exam: PRESENT: dry, intact, warm. ABSENT: cyanosis, rash Results Laboratory Results: 03/06/19 04:23 03/06/19 04:23 03/06/19 03/06/19 04:23 04:23 WBC 7.5 RBC 3.48 L Hgb 11.3 L Hct 31.9 L MCV 92 MCH 32.5 MCHC 35.5 RDW 13.1 Plt Count 135 L Sodium 138.1 Potassium 4.1 Chloride 104 Carbon Dioxide 29 Anion Gap 5 BUN 27 H Creatinine 1.76 H Est GFR ( Amer) 45 L Est GFR (Non-Af Amer) 37 L Glucose 93 Calcium 9.2 03/04/19 03/04/19 03/05/19 20:06 20:10 02:16 Troponin I Cancelled 0.013 0.020 NT-Pro-B Natriuret Pep Cancelled 2510 H 03/05/19 03/05/19 08:37 15:10 Troponin I 0.013 0.017 NT-Pro-B Natriuret Pep Impressions: Chest X-Ray 03/04/19 19:39 IMPRESSION: 1. No acute cardiothoracic abnormality. 2. Previous sternotomy Lung Scan-VQ NM 03/05/19 00:00 IMPRESSION: NORMAL VENTILATION-PERFUSION LUNG SCAN. NEGATIVE FOR PULMONARY EMBOLI. Assessment and Plan - Diagnosis (1) Chest pain Qualifiers: Chest pain type: unspecified Qualified Code(s): R07.9 - Chest pain, unspecified Is this a current diagnosis for this admission?: Yes Plan: Patient is admitted with exertional angina. Reports long-standing history of the same, though this is increased from his baseline. He reports that generally he is able to "wander about the house" without difficulty but now is unable to ambulate more than 20 to 30 feet before he experiences chest discomfort and dyspnea. Troponins are negative x3. proBNP is elevated 2500. Lipid panel is normal. TSH is elevated though free T4 is appropriate. VQ scan negative for PE. Barium swallow study pending. The patient is established with Dr. Gilliam; therefore have consulted cardiology services. Medications adjusted per Dr. Colby's expertise. (2) Exertional angina Is this a current diagnosis for this admission?: Yes Plan: As above. (3) CAD (coronary artery disease) Qualifiers: Coronary Disease-Associated Artery/Lesion type: unspecified vessel or lesion type [place] vs. transplanted heart: [place] heart Associated angina: angina presence unspecified Qualified Code(s): I25.10 - Atherosclerotic heart disease of [place] coronary artery without angina pectoris Is this a current diagnosis for this admission?: Yes Plan: Patient understands he is no longer a surgical candidate. Optimize medical management Evaluation and management as above. (4) Hypertension Qualifiers: Hypertension type: essential hypertension Qualified Code(s): I10 - Essential (primary) hypertension Is this a current diagnosis for this admission?: Yes Plan: Antihypertensives as above. (5) Anxiety Is this a current diagnosis for this admission?: Yes Plan: Reassurance provided. Continue home dose Prozac and trazodone. Consider low dose BuSPAR. (6) Hypothyroidism Is this a current diagnosis for this admission?: Yes Plan: TSH elevated, free T4 is appropriate. Levothyroxine increased to 115 mcg daily (from 112 mcg daily). (7) GERD (gastroesophageal reflux disease) Is this a current diagnosis for this admission?: Yes Plan: Continue PPI. Barium swallow study pending. - Time Time Spent with patient: 15-24 minutes Medications reviewed and adjusted accordingly: Yes Anticipated discharge: Home Within: within 24 hours
--- NOTE | 2019-03-06 19:18 | Progress Note ---
Provider Note Provider Note: CARDIOLOGY PERFORMED progress NOTE by Dr. Josephine Gilliam on 03/06/2019. Subjective: The patient states his right sided chest wall pain is much improved. There is minimal pain on pressing on the chest. He states that shortness of breath is also better. He feels that the shortness of breath is secondary to hiatal hernia. He denies any clear anginal symptoms. There is no palpitations or arrhythmia and there is no PND orthopnea. There is no leg edema. There is no TIA CVA symptoms. Note that the patient's ventilation/perfusion scan yesterday was negative for pulmonary emboli. PHYSICAL EXAMINATION: The patient is well-built and well-nourished at present in no acute distress. Selected Entries 03/06/19 12:00 Temperature 97.7 F Temperature Oral Source Pulse Rate 61 Respiratory 20 Rate Blood Pressure 144/68 H [Right Upper Arm] Blood Pressure 93 Mean [Right Upper Arm] Blood Pressure Supine Position [Right Upper Arm] O2 Sat by Pulse 96 Oximetry Oxygen Delivery Room Air Method ( includes room air) HEAD: Is atraumatic normocephalic. EYES: Pupils are equal round regular reactive to light accommodation extraocular movements are normal. There is no conjunctival l pallor. There is no scleral icterus. ENT is negative. NECK: Is supple there is no JVD. Carotids are equal there is no bruit. There is no lymphadenopathy. There is no goiter. There is no accessory muscle respiration use. Trachea central. LUNGS: Is clear to auscultation percussion without any rhonchi rales or wheezing. There is some minimal discomfort on pressing the right side of the chest in the mid portion of the chest. HEART: S1-S2 is heard. There is no S3 gallop there is no S4 gallop. There is systolic murmur left sternal border and the apex. There is no rub. ABDOMEN: Soft. Nontender there is no paraspinal megaly. Bowel sounds are well heard. EXTREMITIES: Femorals are slightly diminished. There is no femoral bruits. Leg pulses are diminished. There is no DVT or cellulitis. There is no calf tenderness. WAREHOUSE ORDER PULLER: The patient is conscious awake alert oriented x3 with no focal deficit. PSYCHIATRIC: The patient judgment insight intact his affect is normal. Labs- All tests 24 hr 06/23/19 06/23/19 04:23 04:23 WBC 7.5 RBC 3.48 L Hgb 11.3 L Hct 31.9 L MCV 92 MCH 32.5 MCHC 35.5 RDW 13.1 Plt Count 135 L Sodium 138.1 Potassium 4.1 Chloride 104 Carbon Dioxide 29 Anion Gap 5 BUN 27 H Creatinine 1.76 H Est GFR ( Amer) 45 L Est GFR (Non-Af Amer) 37 L Glucose 93 Calcium 9.2 Chest X-Ray 03/04/19 19:39 IMPRESSION: 1. No acute cardiothoracic abnormality. 2. Previous sternotomy Lung Scan-VQ NM 03/05/19 00:00 IMPRESSION: NORMAL VENTILATION-PERFUSION LUNG SCAN. NEGATIVE FOR PULMONARY EMBOLI. IMPRESSION/RECOMMENDATION: Next 1. Noncardiac right sided chest wall pain. No evidence of non-ST elevation NV. Symptoms are improving. Continue analgesics. 2. Dyspnea on exertion. Patient claims that he has minimal dyspnea on exertion although this seems to improved. On examination there is no evidence of heart failure. I have added amlodipine to see if this is angina equal. Later would recommend that the patient have an echocardiogram and a stress nuclear Cardiolite test. This can be done as an outpatient. Note there is no evidence of pulmonary emboli by ventilation/perfusion scan. 3. Coronary artery disease. History of prior NV. History of stents and history of coronary bypass graft surgery. No definite anginal symptoms and no evidence of non-ST elevation NV. Continue aspirin and Plavix and current medications including Ranexa and Imdur. I have added amlodipine. 4. Hypertension: Blood pressure seems to be well controlled. Continue current antihypertensives. 5. Hyperlipidemia: Continue statin. 6. Hypothyroidism. Note the patient is mildly hypothyroid. The patient's thyroid replacement dosage has been increased by me. 7. Chronic kidney disease stage III: Avoid nephrotoxic drugs. 8. GERD/hiatal hernia: Continue his proton pump inhibitor. 9. Depression: Seems to be well controlled on current Prozac dosage. 8. Prior history of pulmonary embolism: No recurrence 9. Prior history of esophageal dysmotility. We will repeat the patient's esophageal x-ray with barium to see the status of this. Medications reviewed. Medications adjusted. Ventilation/perfusion scan results were discussed with the patient and the patient's family. Medical decision making is of high complexity. 40 minutes spent on the patient with more than 50% time spent in direct patient care. Management plan discussed with attending physician on the case. 40 minutes spent on this patient more than 50% time spent in direct patient care. Hopefully the patient can be discharged once the patient's esophageal barium x-ray study is done.
[2019-03-06] MEDS: TRAZODONE HCL 50 MG TABLET PO SCH (22:04)
[2019-03-07] MEDS: PANTOPRAZOLE SODIUM 40 MG TABLET.DR PO SCH (06:40)
[2019-03-07] MEDS: LEVOTHYROXINE SODIUM 0.15 MG TABLET PO SCH (06:40)
[2019-03-07] MEDS: DOCUSATE SODIUM 100 MG CAPSULE PO SCH (10:17)
[2019-03-07] MEDS: ATORVASTATIN CALCIUM 20 MG TABLET PO SCH (10:17)
[2019-03-07] MEDS: ASPIRIN 81 MG TABLET, CHEWABLE PO SCH (10:18)
[2019-03-07] MEDS: SPIRONOLACTONE 25 MG TABLET PO SCH (10:18)
[2019-03-07] MEDS: FUROSEMIDE 20 MG TABLET PO SCH (10:18)
[2019-03-07] MEDS: GABAPENTIN 300 MG CAPSULE PO SCH (10:18)
[2019-03-07] MEDS: MAGNESIUM OXIDE 400 MG TABLET PO SCH (10:18)
[2019-03-07] MEDS: ISOSORBIDE MONONITRATE 60 MG TAB.ER.24H PO SCH (10:18)
[2019-03-07] MEDS: FLUOXETINE HCL 20 MG CAPSULE PO SCH (10:19)
[2019-03-07] MEDS: RANOLAZINE 500 MG TAB.SR.12H PO SCH (10:19)
[2019-03-07] MEDS: CLOPIDOGREL BISULFATE 75 MG TABLET PO SCH (10:19)
[2019-03-07] MEDS: DUTASTERIDE 0.5 MG CAPSULE PO SCH (10:19)
[2019-03-07] MEDS: AMLODIPINE BESYLATE 2.5 MG TABLET PO SCH (10:19)
[2019-03-07 11:41] VITALS: BP 146/53
--- NOTE | 2019-03-07 13:13 | RADIOLOGY REPORT (SQ) ---
EXAM DESCRIPTION: BARIUM SWALLOW ESOPHAGUS COMPLETED DATE/TIME: 03/07/2019 9:53 am REASON FOR STUDY: Rt side chest pain/ Esophageal dysmotility E03.9 HYPOTHYROIDISM, UNSPECIFIED D64. 9 ANEMIA, UNSPECIFIED COMPARISON: None. TECHNIQUE: Under fluoroscopic guidance, patient ingested effervescent granules followed by thick and thin barium. Fluoroscopic spot images and routine radiographic images acquired and stored on PACS. 12 MM BARIUM TABLET GIVEN: Yes. No significant delay in passage. LIMITATIONS: None. FLUOROSCOPY TIME: FLUORO TIME: 1 minutes 20 seconds of fluoroscopy was used. 7 images saved to PACS. FINDINGS: NEUROMUSCULAR COORDINATION OF SWALLOW: Normal. Trace laryngeal penetration with aspiratio n. ESOPHAGEAL MOTILITY: Slow primary peristalsis and tertiary contractions throughout the esophagus. ESOPHAGEAL MUCOSA: Normal mucosa without masses or ulceration. GASTRO-ESOPHAGEAL JUNCTION: No hiatal hernia or reflux. 12 mm barium tablet passed through the GE ju nction without delay. NON-GI TRACT STRUCTURES: No significant finding. OTHER: No other significant finding. IMPRESSION: 1. TRACE LARYNGEAL PENETRATION WITH SILENT ASPIRATION. 2. ESOPHAGEAL DYSMOTILITY WITH TERTIARY CONTRACTIONS SEEN THROUGHOUT THE ESOPHAGUS. COMMENT: Quality ID [id number]: Final reports for procedures using fluoroscopy that document radiation exp osure indices, or exposure time and number of fluorographic images (if radiation exposure indices are not available) TECHNICAL DOCUMENTATION: JOB ID: [id number] [employer]- All Rights Reserved Reading location - IP/workstation name: [email or web address] [id number]
--- NOTE | 2019-03-09 13:37 | PDOC DISCHARGE SUMMARY ---
General - Admit/Disc Date/PCP Admission Date/Primary Care Provider: 03/04/19 22:33 ADAMA REYNOSO MD Discharge Date: 03/07/19 - Discharge Diagnosis (1) Chest pain Is this a current diagnosis for this admission?: Yes Summary: Improved. Patient is admitted with exertional angina. Reports long-standing history of the same, though this is increased from his baseline. He reports that generally he is able to "wander about the house" without difficulty but now is unable to ambulate more than 20 to 30 feet before he experiences chest discomfort and dyspnea. Troponins are negative x3. proBNP is elevated 2500. Lipid panel is normal. TSH is elevated though free T4 is appropriate. VQ scan negative for PE. Barium swallow study revealed esophagus dysmotility and evidence of silent aspiration. The patient was admitted to the medical floor on continuous cardiac telemetry. Dr. Colby was consutled and has made medication adjustments; decrease Ranexa to 500 BID and add Amlodipine 2.5 mg daily. The patient is discharged home in stable condition with home health services. He is to follow up in Dr. Colby's office for outpatient echocardiogram and stress testing. He is advised to follow up with his PCP within 1 week and to return to the emergency department as needed for concerning symtpoms. (2) Exertional angina Is this a current diagnosis for this admission?: Yes Summary: As above. (3) CAD (coronary artery disease) Is this a current diagnosis for this admission?: Yes Summary: Patient understands he is no longer a surgical candidate. [facility] medical management Evaluation and management as above. (4) Hypertension Is this a current diagnosis for this admission?: Yes Summary: Acceptable blood pressures. Medications adjustments per cardiology as above; otherwise continues on his home medication regiment. (5) Anxiety Is this a current diagnosis for this admission?: Yes Summary: Reassurance provided. Continue home dose Prozac and trazodone. (6) Hypothyroidism Is this a current diagnosis for this admission?: Yes Summary: TSH elevated, free T4 is appropriate. Levothyroxine increased to 115 mcg daily (from 112 mcg daily). (7) GERD (gastroesophageal reflux disease) Is this a current diagnosis for this admission?: Yes Summary: Continue PPI. (8) Esophageal dysmotility Is this a current diagnosis for this admission?: Yes Summary: Noted on barrium swallow study with silent laryngeal aspiration. Patient was offered to remain in -house for gastroenterology consultation and speech therapy evaluation; declined. He is agreeable to home health nursing and speech therapy services. Discussed aspiration precautions. - Additional Information Resuscitation Status: Full Code Discharge Diet: Cardiac Discharge Activity: Activity As Tolerated, Balance Activity w/Rest, Slowly Increase Activity Prescriptions: Amlodipine Besylate [Norvasc 2.5 mg Tablet] 2.5 mg PO Q12 #60 tablet Aspirin [Aspirin 81 mg Chewable Tablet] 81 mg PO DAILY #90 tab.chew Ranolazine [Ranexa 500 mg Tab.sr] 500 mg PO Q12 #60 tab.sr.12h Home Medications: Alfuzosin HCl [Alfuzosin HCl ER] 10 mg PO DAILY 02/11/17 Atorvastatin Calcium [Lipitor 20 mg Tablet] 20 mg PO DAILY 02/11/17 Clopidogrel Bisulfate [Plavix 75 mg Tablet] 75 mg PO DAILY 02/11/17 Esomeprazole Magnesium [Nexium] 40 mg PO DAILY 02/11/17 Furosemide [Lasix 20 mg Tablet] 20 mg PO BID 02/11/17 Gabapentin [Neurontin 300 mg Capsule] 300 mg PO DAILY 02/11/17 Isosorbide Mononitrate [Imdur 60 mg Tablet.er] 60 mg PO DAILY 02/11/17 Trazodone HCl [Desyrel 50 mg Tablet] 50 mg PO QHS 02/11/17 Dutasteride 0.5 mg PO DAILY 04/14/17 Spironolactone 25 mg PO BID 04/14/17 Fluoxetine HCl [Prozac 20 mg Capsule] 20 mg PO DAILY 03/04/19 Levothyroxine Sodium [Synthroid 0.112 mg Tablet] 0.112 mg PO Q6AM 03/04/19 Nitroglycerin [Nitrostat 0.4 mg (1/150 Gr) Tabs 25/Bottle] 1 tab SL Q5MP PRN 03/04/19 Docusate Sodium [Colace 100 mg Capsule] 100 mg PO DAILY 03/05/19 Acetaminophen [Tylenol 325 mg Tablet] 650 mg PO Q4HP PRN tablet 03/07/19 Amlodipine Besylate [Norvasc 2.5 mg Tablet] 2.5 mg PO Q12 #60 tablet 03/07/19 Aspirin [Aspirin 81 mg Chewable Tablet] 81 mg PO DAILY #90 tab.chew 03/07/19 Docusate Sodium [Colace 100 mg Capsule] 100 mg PO DAILY capsule 03/07/19 Magnesium Oxide [Mag-Ox 400 mg Tablet] 400 mg PO BID tablet 03/07/19 Ranolazine [Ranexa 500 mg Tab.sr] 500 mg PO Q12 #60 tab.sr.12h 03/07/19 History of Present Illness History of Present Illness: Per H&P by Dr. Mcfadden: MOLLY GRAY is a 78 year old male with a past medical history of hypertension, pulmonary embolism, anxiety, depression, chronic kidney disease, coronary artery disease status post coronary artery bypass graft and multiple stents last catheterization December 2017 with multiple lesions unamenable to intervention. His cardiology team has told him he is no longer a candidate for interventions. Patient presents to the emergency room with 3 days of exertional shortness of breath and chest pain described as fullness with pressure and throbbing. It is nonradiating is 2 out of 5 intensity it is associated with shortness of breath without palpitations nausea or vomiting he did feel as though he was going to pass out. Symptoms resolved with rest. He has unaware of home medications but denies recent change of medications. For some reason he is currently comfortable but quite distressed repeating himself 6 or 7 times stating "I am not crazy but I know there is a problem with my heart. I just cannot express myself." His normal exercise capacity is described as ambulating 20 feet prior to shortness of breath and is now 10 feet. Is currently chest pain-free his work-up in the emergency room was unremarkable. Physical Exam Vital Signs: Temp Pulse Resp BP Pulse Ox 97.3 F 54 L 18 146/53 H 97 03/07/19 13:35 03/07/19 13:35 03/07/19 13:35 03/07/19 13:35 03/07/19 13:35 Intake & Output 03/06/19 03/07/19 03/08/19 06:59 06:59 06:59 Intake Total 462 1200 707 Output Total 1575 850 Balance -1113 350 707 Weight 83.2 kg 80.1 kg General appearance: PRESENT: no acute distress, hard of hearing, well-developed, well-nourished Head exam: PRESENT: atraumatic, normocephalic Eye exam: PRESENT: conjunctiva pink, EOMI, PERRLA. ABSENT: scleral icterus Ear exam: PRESENT: normal external ear exam Mouth exam: PRESENT: moist, tongue midline Teeth exam: PRESENT: poor dentation Neck exam: ABSENT: carotid bruit, JVD, lymphadenopathy, thyromegaly Respiratory exam: PRESENT: clear to auscultation sania. ABSENT: rales, rhonchi, wheezes Cardiovascular exam: PRESENT: RRR. ABSENT: diastolic murmur, rubs, systolic murmur Pulses: PRESENT: normal dorsalis pedis pul Vascular exam: PRESENT: normal capillary refill GI/Abdominal exam: PRESENT: normal bowel sounds, soft. ABSENT: distended, guarding, mass, organolmegaly, rebound, tenderness Rectal exam: PRESENT: deferred Extremities exam: PRESENT: full ROM. ABSENT: calf tenderness, clubbing, pedal edema Neurological exam: PRESENT: alert, awake, oriented to person, oriented to place, oriented to time, oriented to situation, CN II-XII grossly intact. ABSENT: motor sensory deficit Psychiatric exam: PRESENT: appropriate affect, normal mood. ABSENT: homicidal ideation, suicidal ideation Skin exam: PRESENT: dry, intact, warm. ABSENT: cyanosis, rash Results Laboratory Results: 03/06/19 04:23 03/06/19 04:23 03/04/19 03/04/19 03/05/19 20:06 20:10 02:16 Troponin I Cancelled 0.013 0.020 NT-Pro-B Natriuret Pep Cancelled 2510 H 03/05/19 03/05/19 08:37 15:10 Troponin I 0.013 0.017 NT-Pro-B Natriuret Pep Impressions: Chest X-Ray 03/04/19 19:39 IMPRESSION: 1. No acute cardiothoracic abnormality. 2. Previous sternotomy Esophagus X-Ray 03/05/19 00:00 IMPRESSION: 1. TRACE LARYNGEAL PENETRATION WITH SILENT ASPIRATION. 2. ESOPHAGEAL DYSMOTILITY WITH TERTIARY CONTRACTIONS SEEN THROUGHOUT THE ESOPHAGUS. Lung Scan-VQ NM 03/05/19 00:00 IMPRESSION: NORMAL VENTILATION-PERFUSION LUNG SCAN. NEGATIVE FOR PULMONARY EMBOLI. Qualifiers - * PATIENT BEING DISCHARGED WITH ANY OF THE FOLLOWING DIAGNOSIS: No Acute Heart Failure - Is this a Heart Failure Patient?: No Plan Discharge Plan: Follow up with primary care provider within 1 week. Outpatient echocardiogram and stress testing with Dr. Colby. Return to the emergency department as needed for concerning symptoms. Time Spent: Greater than 30 Minutes
== END 2019-03-07 14:00 | disposition home health service (06) ==
LOC: ER 19:04 → EH 22:33 → 4N 03-05 00:34
PROVIDERS: ADMIT Internal Medicine; ATTEND Internal Medicine
DX: R07.9 Chest pain, unspecified (principal); I25.119 Atherosclerotic heart disease of native coronary artery with unspecified angina pectoris; I11.0 Hypertensive heart disease with heart failure; I50.9 Heart failure, unspecified; E03.9 Hypothyroidism, unspecified; I10 Essential (primary) hypertension; F41.9 Anxiety disorder, unspecified; K22.4 Dyskinesia of esophagus; Z79.899 Other long term (current) drug therapy; E78.5 Hyperlipidemia, unspecified; Z86.711 Personal history of pulmonary embolism; I25.2 Old myocardial infarction; Z95.1 Presence of aortocoronary bypass graft; Z95.5 Presence of coronary angioplasty implant and graft; Z90.49 Acquired absence of other specified parts of digestive tract; Z79.02 Long term (current) use of antithrombotics/antiplatelets; Z91.013 Allergy to seafood
CPT/HCPCS: 93005; 99285; 36415 ×3; 84439; 84443; 85025; 85027; 80048; 80053; 84484 ×2; 80061; 83880; 71046; 74220; 78582; 93010; G0378 ×5; A9540; A9567; A9270 ×40; J1940; J3490 ×6; Q9969

== ENCOUNTER → 2019-08-04 | Outpatient (CLI) | payer MEDICARE, OTHER ==
--- NOTE | 2019-08-04 15:42 | RADIOLOGY REPORT (SQ) ---
EXAM DESCRIPTION: CT ABD/PELVIS NO ORAL OR IV COMPLETED DATE/TIME: 08/04/2019 10:13 am REASON FOR STUDY: R31.9 HEMATURIA, UNSPECIFIED R31.9 HEMATURIA, UNSPECIFIED COMPARISON: Bilateral renal ultrasound 11/24/2016 CT abdomen pelvis 03/02/2016 TECHNIQUE: CT scan of the abdomen and pelvis performed without intravenous or oral contrast. Images reviewed with lung, soft tissue, and bone windows. Reconstructed coronal and sagittal MPR images revi ewed. All images stored on PACS. All CT scanners at this facility use dose modulation, iterative reconstruction, and/or weight based d osing when appropriate to reduce radiation dose to as low as reasonably achievable (ALARA). [facility]: Dose Right [facility]: CareDose [facility]: Dose Right [facility]: Teradose 4D [facility]: eBrevia RADIATION DOSE: CT Rad equipment meets quality standard of care and radiation dose reduction techniq ues were employed. CTDIvol: 6.5 mGy. DLP: 397 mGy-cm.mGy. LIMITATIONS: None. FINDINGS: LOWER CHEST: Lung bases are clear. Old sternotomy for CABG. Gynecomastia. NON-CONTRASTED LIVER, SPLEEN, ADRENALS: Evaluation limited by lack of IV contrast. No identified sign ificant masses. PANCREAS: No masses. No peripancreatic inflammatory changes. GALLBLADDER: Surgically absent RIGHT KIDNEY AND URETER: No suspicious masses. Assessment limited by lack of IV contrast. 2.4 cm rig ht upper pole renal probable benign cortical cyst. Follow-up dedicated renal ultrasound recommended. No significant calcifications. No hydronephrosis or hydroureter. LEFT KIDNEY AND URETER: No suspicious masses. Assessment limited by lack of IV contrast. No signifi cant calcifications. No hydronephrosis or hydroureter. AORTA AND RETROPERITONEUM: Atherosclerotic calcification of the abdominal aorta. No aneurysm. Left renal artery stent. BOWEL AND PERITONEAL CAVITY: No obvious masses or inflammatory changes. No free fluid. APPENDIX: Normal. PELVIS, BLADDER, AND ABDOMINAL WALL:No abnormal masses. No free fluid. Bladder normal. BONES: No significant findings. OTHER: No other significant finding. IMPRESSION: Probable renal cortical cysts 2.4 cm right upper pole kidney. Follow-up renal ultrasoun d recommended. No CT evidence of urinary stones. Post cholecystectomy. Left renal artery stent. COMMENT: Quality ID # [id number]: Final reports with documentation of one or more dose reduction techniques (e.g., Automated exposure control, adjustment of the mA and/or kV according to patient size, use of iterative reconstruction technique) TECHNICAL DOCUMENTATION: JOB ID: [id number] [employer]- All Rights Reserved Reading location - IP/workstation name: [email or web address]
== END ==
LOC: RAD 08:56
PROVIDERS: ATTEND Urology
DX: R31.9 Hematuria, unspecified (principal)
CPT/HCPCS: 74176; 82565

== ENCOUNTER → 2019-11-07 | Outpatient (CLI) | payer MEDICARE, OTHER ==
--- NOTE | 2019-11-07 13:18 | RADIOLOGY REPORT (SQ) ---
EXAM DESCRIPTION: U/S RETROPERITON (RENAL/AORTA) COMPLETED DATE/TIME: 11/07/2019 11:45 am REASON FOR STUDY: R31.9 HEMATURIA, UNSPECIFIED R31.9 HEMATURIA, UNSPECIFIED COMPARISON: 11/24/2016 TECHNIQUE: Dynamic and static grayscale images acquired of the kidneys and bladder and recorded on P ACS. Additional selected color Doppler and spectral images recorded. LIMITATIONS: None. FINDINGS: RIGHT KIDNEY: Normal size, 9.5 cm. Normal echogenicity. No solid or suspicious masses. 23 mm cyst. No hydronephrosis. No calcifications. LEFT KIDNEY: Normal size, 9.3 cm. Normal echogenicity. No solid or suspicious masses. No hydronephro sis. No calcifications. BLADDER: Incomplete filling of the bladder. Ureteral jets are not seen. OTHER FINDINGS: No other significant finding. IMPRESSION: Normal kidneys. The bladder is not well evaluated. TECHNICAL DOCUMENTATION: JOB ID: [id number] 2010 [employer]- All Rights Reserved Reading location - IP/workstation name: [email or web address]
== END ==
LOC: RAD 10:58
PROVIDERS: ATTEND Urology
DX: R31.9 Hematuria, unspecified (principal)
CPT/HCPCS: 76770

== ENCOUNTER 2020-01-11 19:04 | Emergency (ER) | payer MEDICARE, OTHER ==
[2020-01-11 19:41] LABS: ABSOLUTE BASOPHILS # (AUTO) 0.1 10^3/uL (0.0-0.2); ABSOLUTE EOSINOPHILS # (AUTO) 0.6 10^3/uL (0.0-0.6); ABSOLUTE LYMPHOCYTES (AUTO) 1.1 10^3/uL (0.5-4.7); ABSOLUTE MONOCYTES (AUTO) 0.7 10^3/uL (0.1-1.4); ABSOLUTE NEUT (AUTO) 4.9 10^3/uL (1.7-8.2); BASOPHILS % (AUTO) 1.1 % (0-2); EOSINOPHILS % (AUTO) 8.1 % (0-6); HEMOGLOBIN 11.9 g/dL (13.5-17.0); LYMPHOCYTES % (AUTO) 14.9 % (13-45); MEAN CORPUSCULAR HEMOGLOBIN 33.5 pg (27.0-33.4); MEAN CORPUSCULAR VOLUME 93 fl (80-97); MONOCYTES % (AUTO) 9.3 % (3-13); PLATELET COUNT 137 10^3/uL (150-450); RED BLOOD COUNT 3.55 10^6/uL (4.35-5.55); RED CELL DISTRIBUTION WIDTH 13.1 % (11.5-14.0); SEGMENTED NEUTROPHILS % (AUTO) 66.6 % (42-78); TOTAL CELLS COUNTED % (AUTO) 100 %; WHITE BLOOD COUNT 7.3 10^3/uL (4.0-10.5)
--- NOTE | 2020-01-11 19:49 | ER Document Report ---
ED General - General Chief Complaint: Chest Pain Stated Complaint: CHEST PAIN Time Seen by Provider: 01/11/20 19:11 Primary Care Provider: AIYANA LOZA MD [NO LOCAL MD] - Follow up as needed GEOVANNI SPIVEY MD [ACTIVE STAFF] - Follow up as needed Mode of Arrival: Medic Information source: Patient TRAVEL OUTSIDE OF THE [place] IN LAST 30 DAYS: No - HPI Onset: Other - around 430pm Onset/Duration: Gradual Quality of pain: Pressure Severity: Moderate Pain Level: 3 Associated symptoms: Other - diaphoresis Exacerbated by: Denies Relieved by: Denies Similar symptoms previously: Yes - with prior MIs and Angina Recently seen / treated by doctor: No Notes: 79 year old male with a history of CAD s/p CABG and Stents, CHF, HTN, HLD, PE, BPH here in the ER for chest pain/pressure since 430PM which radiates to his right arm and is associated with diaphoresis and mild shortness of breath. The patient says this feels like prior chest pains he has had related to an AK and/or angina. The patient is unsure of the last time he had a stress test but he thinks it was within 5 years. - Related Data Allergies/Adverse Reactions: Fish Containing Products [Fish Product Derivatives] Allergy (Severe, Verified 01/11/20 19:08) Hives Home Medications: Alfuzosin, aspirin, atorovastatin, avodart, fluoxetine, furosemide, folbic, gabapentin, iron, isosorbide, magnesium,nexium, mitro, plavix, ranexa, spirnolactone, stool softner, synthroid, trazadone Past Medical History - General Information source: Patient - Social History Smoking Status: Former Smoker Chew tobacco use (# tins/day): No Frequency of alcohol use: None Drug Abuse: None Family History: CAD, DM Patient has homicidal ideation: No - Past Medical History Cardiac Medical History: Reports: Hx Congestive Heart Failure, Hx Coronary Artery Disease, Hx Heart Attack - four, Hx Hypercholesterolemia, Hx Hypertension, Hx Pulmonary Embolism - 2005 Pulmonary Medical History: Reports: Hx Bronchitis, Hx Pneumonia - hx of - 3 years ago Denies: Hx Asthma, Hx COPD Neurological Medical History: Denies: Hx Cerebrovascular Accident, Hx Seizures, Hx Parkinson's Disease Endocrine Medical History: Reports: Hx Hyperthyroidism. Denies: Hx Hypothyroidism Renal/ Medical History: Reports: Hx Benign Prostatic Hyperplasia. Denies: Hx End Stage Renal Disease, Hx Kidney Stones, Hx Peritoneal Dialysis GI Medical History: Denies: Hx Crohn's Disease, Hx Gastroesophageal Reflux Disease, Hx Hiatal Hernia, Hx Irritable Bowel, Hx Liver Failure, Hx Pancreatitis, Hx Ulcer Musculoskeletal Medical History: Reports Hx Arthritis - hx 0f, Denies Hx Fibromy algia, Denies Hx Multiple Sclerosis, Denies Hx Muscular Dystrophy, Denies Hx Systemic Lupus Erythematosus Psychiatric Medical History: Denies: Hx Dementia, Hx Depression Traumatic Medical History: Denies: Hx Fractures Past Surgical History: Reports: Hx Cardiac Catheterization - stents x6, Hx Cardiac Surgery - Angioplasty x4, Hx Cholecystectomy - 2010, Hx Coronary Artery Bypass Graft - 2, Hx Coronary Stent - x5, Hx Inguinal Hernia - x2, Hx Orthopedic Surgery - ankle, multiple, Hx Thyroid Surgery - Thyroidectomy - Immunizations Hx Diphtheria, Pertussis, Tetanus Vaccination: No Hx Pneumococcal Vaccination: 02/12/07 Review of Systems - Review of Systems Constitutional: No symptoms reported EENT: No symptoms reported Cardiovascular: Chest pain Respiratory: Short of breath Gastrointestinal: No symptoms reported Genitourinary: No symptoms reported Male Genitourinary: No symptoms reported Musculoskeletal: No symptoms reported Skin: Other - mild diaphoresis Hematologic/Lymphatic: No symptoms reported Neurological/Psychological: No symptoms reported -: Yes All other systems reviewed and negative Physical Exam - Vital signs Vitals: Resp Pulse Ox 12 99 01/11/20 19:07 01/11/20 19:07 - Notes Notes: GENERAL: Well-appearing, well-nourished and in no acute distress. HEAD: Atraumatic, normocephalic. EYES: Pupils equal round and reactive to light, extraocular movements intact, sclera anicteric, conjunctiva are normal. ENT: External ears normal, nares patent, oropharynx clear without exudates. Moist mucous membranes. NECK: Normal range of motion, supple without lymphadenopathy or JVD. LUNGS: Breath sounds clear to auscultation bilaterally and equal. No wheezes rales or rhonchi. HEART: Regular rate and rhythm without murmurs, rubs or gallops. ABDOMEN: Soft, nontender, normoactive bowel sounds. No guarding, no rebound. No masses appreciated. EXTREMITIES: Normal range of motion, no pitting or edema. No clubbing or cyanosis. NEUROLOGICAL: Cranial nerves II through XII grossly intact. Normal speech, normal gait. PSYCH: Normal mood, normal affect. SKIN: Warm, Dry, normal turgor, no rashes or lesions noted. Course - Re-evaluation Re-evalutation: 01/11/20 23:11 The patient's chest pain resolved completely while in the ER. The patient had 2 negative Troponins. I consulted [place] (Dr. Colby) and he will see the patient tomorrow at 1pm to set up a stress test. The patient's EKG was unchanged from priors except Trigemeny was noted. - Vital Signs Vital signs: Temp Pulse Resp BP Pulse Ox 97.9 F 20 146/50 H 98 01/11/20 19:08 01/11/20 19:25 01/11/20 19:25 01/11/20 19:25 - Laboratory Result Diagrams: 01/11/20 19:20 01/11/20 20:30 Laboratory results interpreted by me: 01/11/20 01/11/20 19:20 20:30 RBC 3.55 L Hgb 11.9 L Hct 33.0 L MCH 33.5 H Plt Count 137 L Eos % (Auto) 8.1 H Sodium 133.8 L BUN 38 H Creatinine 2.07 H Est GFR ( Amer) 37 L Est GFR (MDRD) Non-Af 31 L Alkaline Phosphatase 32 L Total Protein 5.4 L Albumin 3.0 L - Diagnostic Test Radiology reviewed: Image reviewed, Reports reviewed - EKG Interpretation by Nm EKG shows normal: Sinus rhythm Rate: Normal Rhythm: NSR Ballinger/QRS: RBBB Additional EKG results interpreted by me: 01/11/20 20:08 Ventricular Trigeminy (new) otherwise similar to prior EKGs Discharge - Discharge Clinical Impression: Chest pain Qualifiers: Chest pain type: unspecified Qualified Code(s): R07.9 - Chest pain, unspecified Condition: Stable Disposition: HOME, SELF-CARE Instructions: Chest Pain of Unclear Cause ([facility]) Additional Instructions: Follow up with Dr. Colby of Cardiology tomorrow afternoon (he is expecting you). Dr. Colby will set up a stress test for you. You had 2 negative Troponins lab values here in the ER. Return to an ER for uncontrolled chest pain, trouble breathing, shortness of breath, or if worse. Referrals: AIYANA LOZA MD [NO LOCAL MD] - Follow up as needed GEOVANNI SPIVEY MD [ACTIVE STAFF] - Follow up as needed
[2020-01-11 20:13] LABS: CREATINE KINASE MB 1.47 ng/mL (<4.55); TROPONIN I 0.029 ng/mL
[2020-01-11] MEDS ORDERED: MORPHINE SULFATE 10 MG/ML INJ IV ONE (20:18)
--- NOTE | 2020-01-11 20:46 | RADIOLOGY REPORT (SQ) ---
EXAM DESCRIPTION: AP portable radiograph of the chest CLINICAL HISTORY: 79 years Male, chest pain COMPARISON: Two views of the chest 03/04/2019 FINDINGS: Lungs: Lung volumes are preserved. There is pleural parenchymal scarring in the lung apices which is stable. Minimal linear volume loss is present in the left lung base which is also unchanged. No pneumothorax or pleural effusion. Mediastinum: Heart size is enlarged and there is postoperative change of CABG. Vascular calcifications in the thoracic aorta. The appearance is stable. Bones: Osseous structures are unchanged. IMPRESSION: Cardiomegaly. No acute process. No significant interval change.
[2020-01-11 20:56] LABS: ALKALINE PHOSPHATASE 32 U/L (38-126); ANION GAP 5 (5-19); ASPARTATE AMINO TRANSFERASE 26 U/L (17-59); BILIRUBIN,TOTAL 0.4 mg/dL (0.2-1.3); BLOOD UREA NITROGEN 38 mg/dL (7-20); CALCIUM 8.8 mg/dL (8.4-10.2); CARBON DIOXIDE 27 mmol/L (22-30); CHLORIDE 102 mmol/L (98-107); CREATINE KINASE 69 U/L (55-170); GLUCOSE 106 mg/dL (75-110); POTASSIUM 4.6 mmol/L (3.6-5.0); TOTAL PROTEIN 5.4 g/dL (6.3-8.2)
--- NOTE | 2020-01-11 22:05 | EKG REPORT ---
SEVERITY:- ABNORMAL ECG - SINUS RHYTHM VENTRICULAR TRIGEMINY RIGHT BUNDLE BRANCH BLOCK : Confirmed by: Josephine Gilliam MD 11-Jan-2020 22:04:16
[2020-01-11 23:19] VITALS: BP 144/53
== END 2020-01-11 23:19 | disposition home or self-care (01) ==
LOC: ER 19:04
DX: R07.9 Chest pain, unspecified (principal); I50.9 Heart failure, unspecified; I25.10 Atherosclerotic heart disease of native coronary artery without angina pectoris; I11.0 Hypertensive heart disease with heart failure; Z95.1 Presence of aortocoronary bypass graft; I25.2 Old myocardial infarction; Z86.711 Personal history of pulmonary embolism
CPT/HCPCS: 93005; 99285; 96374; 36415; 82553; 82550; 85025; 80053; 84484; 71045; 93010; J2270